=== PATIENT | male | born 1950 | race Caucasian/White ===

== ENCOUNTER 2024-02-16 14:58 | Outpatient (CLI) | payer MEDICARE, SELFPAY ==
[2024-02-16 15:18] LABS: Basophils # 0.1 K/mm3 (0-0.2); Basophils % 1.2 % (0.1-2.0); Eosinophils # 0.3 K/mm3 (0.0-0.4); Eosinophils % 6.6 % (0.1-12.0); Hematocrit 37.1 % (42.0-52.0); Hemoglobin 11.1 g/dL (14.1-18.0); Lymphocytes # 1.1 K/mm3 (0.7-4.5); Lymphocytes % 22.2 % (10-50); Mean Corpuscular HGB Conc 29.8 g/dL (31.8-35.4); Mean Corpuscular Hemoglobin 21.8 pg (27.0-31.2); Mean Corpuscular Volume 73.3 fl (80-94); Monocytes # 0.4 K/mm3 (0.1-1.0); Neutrophils # 3.2 K/mm3 (1.8-7.8); Platelet Count 131 K/mm3 (142-424); Red Blood Count 5.07 M/mm3 (4.60-6.20); Red Cell Distribution Width 18.3 % (11.5-17.5); White Blood Count 5.1 K/mm3 (4.8-10.8)
[2024-02-16 15:53] LABS: Chloride 101 mmol/L (98-107)
[2024-02-16 15:54] LABS: Potassium 3.9 mmoL/L (3.5-5.1); Sodium 140 mmol/L (136-145)
[2024-02-16 15:56] LABS: Alanine Aminotransferase 13 U/L (12-78); Alkaline Phosphatase 64 U/L (38-126); Anion Gap 7.9 mEq/L (5-15); Aspartate Amino Transferase 23 U/L (17-59); Bilirubin,Direct 0.4 mg/dl (0.0-0.4); Bilirubin,Indirect 1.1 mg/dL (0.0-0.9); Bilirubin,Total 1.5 mg/dl (0.2-1.3); Bilirubin,Unconjugated 1.1 mg/dL (0.0-1.1); Blood Urea Nitrogen 23 mg/dl (9-20); Carbon Dioxide 35 mmol/L (22.0-30.0); Estimated Glomerular Filt Rate 12 ml/min (>60); GFR (African American) 15 ML/MIN (>60)
[2024-02-16 15:57] LABS: Albumin Level 3.8 g/dl (3.5-5.0); Calcium 8.9 mg/dl (8.4-10.2); Chol/HDL Ratio 2.7 (1-3.5); Cholesterol 91 mg/dl (140-200); Glucose 95 mg/dl (74-100); HDL Cholesterol 34 mg/dl (40-60); Total Protein,Serum 6.8 g/dl (6.3-8.2); Triglycerides 68 mg/dl (30-150); VLDL Cholesterol 14 mg/dL (0-40)
[2024-02-16 16:24] LABS: Direct LDL Cholesterol 44.12 mg/dL (100-129)
[2024-02-16 16:27] LABS: Free T4 (Free Thyroxine) 1.81 ng/dl (0.78-2.19)
[2024-02-16 16:39] LABS: Thyroid Stimulating Hormone 4.27 uIU/mL (0.465-4.68)
[2024-02-16 17:04] LABS: NT Pro Brain Natriuretic Pep. 163000 pg/mL (0-125)
== END 2024-02-16 23:59 ==
PROVIDERS: PCP Pediatrics; Visit Provider Internal Medicine
DX: K21.9 Gastro-esophageal reflux disease without esophagitis (principal); R06.09 Other forms of dyspnea; R94.31 Abnormal electrocardiogram [ECG] [EKG]; N18.6 End stage renal disease; Z95.0 Presence of cardiac pacemaker; I11.9 Hypertensive heart disease without heart failure; I42.8 Other cardiomyopathies
CPT/HCPCS: 36415; 80048; 80061; 80076; 83880; 84439; 84443; 85025

== ENCOUNTER 2024-02-25 10:41 | Outpatient (CLI) | payer MEDICARE, SELFPAY ==
--- NOTE | 2024-02-25 10:46 | CA_ITS ---
APPROVED REPORT EXAM: Comprehensive 2D, Doppler, and color-flow Echocardiogram Park Worker: Sis Bojorquez RT(R) Ht: 5 ft 6 in Wt: 172lbs BSA: 1.88 BP: 120/58 mmHg Indications: CP, HTN, fatigue, SOB, hyperlipidemia, PPM, Abn EKG, hx CM. 2D Dimensions LVEF (Cantu's) 23.00 % M: 52 - 72 LV Volume 276.40 mL M: 62 - 150 LV Volume Index 147.0 mL/m2 M: 34 - 74 LA Volume 117.10 mL LA Volume Index 62.29 mL/m2 (M/F) 16-34 EF AP4 24.90 % EF AP2 17.0 % EF BP 23.0 % GL Strain -7.6 % M-Mode Dimensions RVDd 3.40 cm (0.9-2.6) LA Diam 4.86 cm (1.9-4.0) LVDd 6.71 cm (3.5-5.7) LVDs 5.61 cm (3.5-5.7) IVSd 1.27 cm (0.6-1.1) PWd 0.93 cm (0.6-1.1) EF (Teich) 33.50% FS 16.40% EDV (Teich) 232.10 mL ESV (Teich) 154.30 mL LV Diastology E Decel Time 167 (160-240 msec) E/A Ratio 2.7 Mitral Valve MV E Max Jovanni. 96.0 (40-130 cm/s) MV A Velocity 35.0 (40-130 cm/s) E/A Ratio 2.75 MV PHT 49.0 ms Tricuspid Valve TR P. Velocity 336.00 cm/s RAP Estimate 15.00 mmHg RVSP 60.10 mmHg Left Ventricle Left ventricle is severely dilated. Left ventricular systolic function is severely decreased. There is increased LV wall thickness. There is severe global hypokinesis present. The septum is asynchronous. The septal, inferoseptal, and anteroseptal LV randolph are akinetic. Grade 3 diastolic dysfunction is present. LVEF is 15-20%. Right Ventricle Right ventricle is severely dilated. Right ventricle is moderately hypokinetic. There is a device lead in the right ventricle. Atria Left atrium is severely dilated. Right atrium is severely dilated. There is no Doppler evidence of interatrial shunt. Aortic Valve The aortic valve is mildly thickened. There is restricted motion of the right coronary cusp. There is no aortic valvular stenosis. Trace aortic regurgitation. Mitral Valve The mitral valve leaflets are mildly thickened. No evidence of mitral valve stenosis. Mild to moderate mitral regurgitation. Tricuspid Valve The tricuspid valve leaflets are thin and pliable. Moderate to severe tricuspid regurgitation. RVSP is 45-50 mmHg. Pulmonic Valve The pulmonary valve is normal in structure. Mild pulmonic regurgitation. Great Vessels The aortic root is normal in size. The ascending aorta is normal in size. There is calcification noted in the ascending aorta. IVC is normal in size and collapses >50% with inspiration. Pericardium There is no pericardial effusion. Other Information Study Quality: Fair Conclusion Severely dilated LV with severely reduced LV systolic function (LVEF 15-20%). Asynchronous septum. The septal, inferoseptal, and anteroseptal LV randolph are akinetic. Grade 3 diastolic dysfunction. Moderate RV dilation with moderate reduction in RV function. Severe biatrial dilation. Mild to moderate MR. Moderate to severe TR. Mild pulmonic regurgitation. RVSP is 45-50 mmHg. Electronically signed by : Oneida Kaur MD 02/27/2024 23:55:22
== END 2024-02-25 23:59 ==
LOC: RT 10:42
PROVIDERS: PCP Pediatrics; Visit Provider Internal Medicine
DX: R06.09 Other forms of dyspnea; R94.31 Abnormal electrocardiogram [ECG] [EKG]; N18.6 End stage renal disease; Z95.0 Presence of cardiac pacemaker; I42.8 Other cardiomyopathies
CPT/HCPCS: 93306

== ENCOUNTER 2024-04-25 09:47 | Day surgery (SDC) | payer MEDICARE, SELFPAY ==
--- NOTE | 2024-04-25 | IR_ITS ---
APPROVED REPORT Patient Location: Outpatient [facility] Cutter: KVNG Wei RT (R) PROCEDURES 1. Pocket Revision 2. Placement of right ventricular sensing pacing and shocking lead in the right ventricular apex. 3. Placement of left ventricular sensing pacing lead via the coronary sinus. 4. Capping of chronic right ventricular lead. 5. Permanent cardiac resynchronization therapy with ICD implantation/biventricular pacemaker. INDICATION 94 % Right Atrial pacing, LVEF 15%, 25% Right Ventricular pacing Informed consent was obtained prior to the procedure. COMPLICATIONS None Estimated Blood Loss: Less than 10 ML TECHNIQUE 1% lidocaine with epinephrine used to anesthetize the left anterior aspect of the chest. Scalpel was used to make the initial cutaneous incision and to dissect down into the fascia. The generator was removed from the existing pocket. Digital manipulation was required along with intermittent usage of scalpel in order to revise the pocket. The leads were removed from the old generator. The patient was then placed in Trendelenburg position and the subclavian vein was accessed 1 time via the Selinger technique. A 9.5 [place] sheath was placed under fluoroscopic guidance into the subclavian vein. The dilator was removed from the sheath. Under fluoroscopic guidance the coronary sinus was cannulated and confirmed with an injection of contrast. An 0.014 wire was then placed distally in the inferior posterior segment of the left ventricle via the coronary sinus and the left ventricular lead was advanced. After achieving excellent thresholds and interrogation numbers the sheath was then peeled away and the lead was then secured into place using silk suture. Ancef was used to flush the pocket and the 3 leads were attached to the [employer]-D generator. The generator was then secured into place by heavy silk suture. Monocryl was used to close the subcutaneous layers while surjit were used to close the subcutaneous layers while surjit were used to close the cutaneous layer. A pressure dressing was placed and the patient was transferred to the postop holding area in stable condition for postoperative care. INTERROGATION Generator Model number: 2can HF [id number] Generator Serial number: [id number] Atrial lead model number: Chronic Lead Atrial lead serial number: Chronic Lead P-wave: 2.5 mV Impedance: 360 Ohms Threshold: 0.875V@0.5ms Right Ventricular lead model number: Optisure [id number] Right Ventricular lead serial number: [id number] R-wave: 7.5 mV Impedance: 450 Ohms Threshold: 0.5V@0.5ms Left Ventricular lead model number: Primitivo [id number] Left Ventricular lead serial number: [id number] R-wave: Impedance: 860 Ohms Threshold: 0.5V@0.5ms VT-1 150 bpm monitor VT-2 181 bpm ATPX2, 30J, 40J, 40JX2 VF 214 bpm ATPX1, 36J, 40J, 40JX4 Pacing Parameters: Mode: DDDR Base/Max Track:60 ppm / 130 ppm No diaphragmatic stimulation at 10 volts. IMPRESSION 1. Successful Pocket Revision 2. Successful Placement of right ventricular sensing pacing and shocking lead in the right ventricular apex. 3. Successful Placement of left ventricular sensing pacing lead via the coronary sinus. 4. Successful Capping of chronic right ventricular lead. 5. Successful Permanent cardiac resynchronization therapy with ICD implantation/biventricular pacemaker. PLAN 1. Postop wound care. Electronically signed by : Mane Tesfaye MD 04/26/2024 13:13:01
[2024-04-25 09:50] VITALS: BMI 27.6
[2024-04-25 10:30] LABS: Anion Gap 13.1 mEq/L (5-15); Blood Urea Nitrogen 35 mg/dl (9-20); Calcium 9.2 mg/dl (8.4-10.2); Carbon Dioxide 34 mmol/L (22.0-30.0); Chloride 100 mmol/L (98-107); Creatinine Clearance Estimated 11 mL/min (50-200); Estimated Glomerular Filt Rate 8 ml/min (>60); GFR (African American) 10 ML/MIN (>60); Glucose 97 mg/dl (74-100); Potassium 4.1 mmoL/L (3.5-5.1); Sodium 143 mmol/L (136-145)
[2024-04-25 10:35] VITALS: BP 128/72; PULSE 75; RESP 19; O2SAT 96
[2024-04-25 11:15] LABS: Basophils % 0.7 % (0.1-2.0); Eosinophils # 0.2 K/mm3 (0.0-0.4); Eosinophils % 4.1 % (0.1-12.0); Hematocrit 33.1 % (42.0-52.0); Lymphocytes # 0.7 K/mm3 (0.7-4.5); Lymphocytes % 16.1 % (10-50); Mean Corpuscular HGB Conc 30.2 g/dL (31.8-35.4); Mean Corpuscular Hemoglobin 21.9 pg (27.0-31.2); Mean Corpuscular Volume 72.4 fl (80-94); Mean Platelet Volume 7.7 fl (7.4-10.4); Monocytes # 0.3 K/mm3 (0.1-1.0); Monocytes % 6.5 % (1.7-9.3); Neutrophils # 3.1 K/mm3 (1.8-7.8); Neutrophils % 72.6 % (37.0-80.0); Platelet Count 154 K/mm3 (142-424); Red Blood Count 4.57 M/mm3 (4.60-6.20); White Blood Count 4.3 K/mm3 (4.8-10.8)
--- NOTE | 2024-04-25 14:20 | P.PNANES_ITS ---
[facility] Disclaimer: The information contained in this section may have been updated after the patient was seen, as this information can be updated by other users. Medical History Presence of cardiac pacemaker Dialysis Patient Surgical History H/O left heart catheterization by cutdown H/O heart surgery Social History Smoking Status: Never smoker alcohol intake: never substance use type: denies use current occupational status: retired Travel in the last 8 weeks: None [facility] Anesthesia Checklist Patient Identification Patient Identification: Arm Band Structural Data Admitted From: Home Planned Operative Procedure/s: Bi-ventricular Pacemaker Upgrade Consent for Planned Operative Procedure(s) Verified: Yes Verified Documents: Surgical Consent and History and Physical NPO Status Verified Time NPO: 00:00 Additional verifications Anesthesia Reactions: No Hx Blood Transfusions: No Blood Transfusion Reaction: No Airway Assessment Mallampati Score:: Class II C-Spine Mobility Assessed: Yes Dentition: Good Dentition Neurological Assessment Level of Consciousness: Awake, Alert and Appropriate Anesthesia Plan Anesthesia Risk discussed: Yes Anesthesia Plan: Verified ASA Class: IV Anesthesia Type: MAC
[2024-04-25] MEDS: CEFAZOLIN SODIUM 1 GM in 0.9 % SODIUM CHLORIDE 50 ML IV (14:35)
[2024-04-25] MEDS: LIDOCAINE 1% W/EPI 1:100,000 20ML VIAL 20 ML SQ (14:36)
[2024-04-25] MEDS: 0.9 % SODIUM CHLORIDE 1000ML 1,000 ML 25 ML IV (15:42)
[2024-04-25] MEDS: CEFAZOLIN 1GM VIAL 1 GM TP (15:51)
--- NOTE | 2024-04-25 15:54 | XR_ITS ---
FINAL REPORT TECHNIQUE: Single view. CLINICAL HISTORY: Confirm pacemaker/AID placement COMPARISON: None. FINDINGS: The heart size is mildly enlarged. There is a biventricular pacemaker identified. The mediastinum is normal. There is scarring in the lung bases. Patchy airspace opacities are identified in the medial right upper lobe and inferior left lower lobe. This could be due to pneumonia. There are no pleural effusions. There is no pneumothorax. There is no osseous abnormality. IMPRESSION: Airspace opacity in the medial right upper lobe and inferior left lower lobe, could be due to pneumonia. Reviewed, Interpreted and Dictated by Kristopher Lee MD Transcribed by Chioma Huitron PA-C Authenticated and [facility]
[2024-04-25 16:05] VITALS: BP 115/54; PULSE 60; RESP 16; O2SAT 90
[2024-04-25 16:28] VITALS: BP 116/54; PULSE 58; RESP 20; O2SAT 98
[2024-04-25] MEDS: IOPAMIDOL-370 (76%);100ML BOTTLE 15 ML IV (16:38)
[2024-04-25 16:43] VITALS: BP 135/62; PULSE 60; RESP 20; O2SAT 93
[2024-04-25 16:55] VITALS: BP 127/78; PULSE 66; RESP 20; O2SAT 96
[2024-04-25 16:56] VITALS: O2SAT 95
--- NOTE | 2024-04-25 17:15 | SUR.PHASEII ---
Family was notified of Chest X-ray results, and advised to follow up with PCP about possible pneumonia. Patient and family verbalized understanding. patient in no distress at time of discharge.
== END 2024-04-25 17:17 | disposition home or self-care (01) ==
PROVIDERS: PCP Pediatrics; Visit Provider Internal Medicine
PROC: 0JH609Z Insertion of Cardiac Resynchronization Defibrillator Pulse Generator into Chest Subcutaneous Tissue and Fascia, Open Approach (ICD-10-PCS; CPT 33249; principal; 2024-04-25 07:00)
DX: Z45.02 Encounter for adjustment and management of automatic implantable cardiac defibrillator (principal); Z79.899 Other long term (current) drug therapy; N18.6 End stage renal disease; I42.9 Cardiomyopathy, unspecified; I50.9 Heart failure, unspecified
CPT/HCPCS: 33225; 33233; 33249; 71045; 80048; 85025; 99152; 99153; C1769; C1882; C1895; C1900; Q9967

== ENCOUNTER 2025-01-23 15:07 | Outpatient (CLI) | payer MEDICARE, SELFPAY ==
--- NOTE | 2025-01-23 15:10 | CA_ITS ---
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 5.90 mmHg Mitral Valve MV E Max Jovanni. 87.0 (40-130 cm/s) MV A Velocity 35.0 (40-130 cm/s) E/A Ratio 2.45 MV PHT 55.0 ms Pulmonary Valve PV Peak Velocity 91.0 (50-150 cm/s) Tricuspid Valve TR P. Velocity 352.00 cm/s RAP Estimate 10.00 mmHg RVSP 59.60 mmHg Left Ventricle The left ventricle is moderately dilated. Left ventricular systolic function is severely decreased. Increased LV wall thickness. There is severe global hypokinesis present. Grade 3 diastolic dysfunction is present. LVEF is 15%. Right Ventricle The right ventricle is severely dilated. Right ventricle is severely hypokinetic. Atria Left atrium is severely dilated. Right atrium is severely dilated. There is no Doppler evidence of interatrial shunt. Aortic Valve The aortic valve is mildly thickened. There is no aortic valvular stenosis. Trace aortic regurgitation. Mitral Valve The mitral valve leaflets are mildly thickened. The posterior MV leaflet is tethered and restricted in motion. No evidence of mitral valve stenosis. Mild mitral regurgitation. Tricuspid Valve The tricuspid valve leaflets are thin and pliable. Mild tricuspid regurgitation. RVSP is 50???55 mmHg. Pulmonic Valve The pulmonary valve is normal in structure. Trace pulmonic regurgitation. Great Vessels The aortic root is normal in size. IVC is normal in size and collapses >50% with inspiration. Pericardium There is no pericardial effusion. Pleural effusion is present. Other Information Study Quality: Fair Conclusion Moderate RV dilation with severe reduction global LV systolic function (LVEF 15%). Grade 3 diastolic dysfunction. Severe RV dilation with severe reduction in RV function. Biatrial dilation. Mild MR, mild TR. Markedly elevated RVSP 50-55 mmHg. Pleural effusion. Electronically signed by : Oneida Kaur MD 01/29/2025 00:08:10
== END 2025-01-23 23:59 | disposition home or self-care (01) ==
LOC: RT 15:08
PROVIDERS: PCP Pediatrics; Visit Provider Nurse Practitioner Family
DX: I51.7 Cardiomegaly (principal); I34.0 Nonrheumatic mitral (valve) insufficiency; I36.1 Nonrheumatic tricuspid (valve) insufficiency; I50.20 Unspecified systolic (congestive) heart failure
CPT/HCPCS: 93306

== ENCOUNTER 2025-02-22 11:22 | Outpatient (CLI) | payer MEDICARE, SELFPAY ==
[2025-02-22 12:15] LABS: Iron 191 ug/dL (49-181)
[2025-02-22 12:25] LABS: Total Iron Binding Capacity 329 ug/dL (261-462)
[2025-02-22 12:52] LABS: Ferritin 838 ng/ml (17.9-464)
== END 2025-02-22 23:59 | disposition home or self-care (01) ==
LOC: LAB 13:00
PROVIDERS: PCP Pediatrics; Visit Provider Specialist
DX: D64.9 Anemia, unspecified (principal); D56.1 Beta thalassemia
CPT/HCPCS: 36415; 82728; 83540; 83550

== ENCOUNTER 2025-06-19 08:17 | Outpatient (CLI) | payer MEDICARE, SELFPAY ==
--- OUTSIDE RECORDS SUMMARY | 2025-05-25 10:00 | XMS_ITS | Encounter Summary ---
Author Organization [facility] Address [address] [place] [address] Care Team Providers Care Anaesthesiologist Name Role Phone Avel Traore MD Primary Care Provider [phone] Reason for Visit * Reason Comments Primary Care Follow-Up 6 month f/u Encounter Details Date Type Department Care Team (Late st Contact Info) Description 05/25/2025 10:00 AM EDT Office Visit [facility] [address] [place] [address] [place] [phone] Avel Traore MD [address] [place] [address] [place] [address] Renovascular hypertension (Primary Dx); ESRD (end stage renal disease) on dialysis; Anxiety and depression; Chronic systolic heart failure; Longstanding persistent atrial fibrillation; Hypothyroidism (acquired); Elevated bilirubin; Benign prostatic hyperplasia without lower urinary tract symptoms; Vitamin B12 deficiency; Vitamin D deficiency Social History Tobacco Use Types Packs/Day Years Used Date Smoking Tobacco: Never Passive Smoke Exposure: Never Smokeless Tobacco: Never Alcohol Use Standard Drinks/Week Comments No 0 (1 standard drink = 0.6 oz pur e alcohol) AUDIT-C Answer Date Recorded Q1: How often do you have a drink containing alcohol? Never 02/11/2024 Q2: How many drinks containi ng alcohol do you have on a typical day when you are drinking? Patient does not drink Q3: How often do you have si x or more drinks on one occasion? Never 02/11/2024 PHQ-2 Answer Date Recorded Retired PHQ-9: Brief Depression Severity Measure Score 0 06/02/2023 Abuse Screen Answer Date Recorded Feels Unsafe at Home or Work/School no 02/11/2024 Feels Threatened by Someone no 01/27 Does Anyone Try to Keep You From Having Contact with Others or Doing Things Outside Your Home? no 02/11/2024 Physical Signs of Abuse Present no 02/11/2024 Housing Stability Answer Date Recorded Current Living Arrangements home 01/27 Potentially Unsafe Housing Conditions Not on didi e 02/11/2024 Disabilities Answer Date Recorded Difficulty Concentrating, Remembering or Making Decisions no 02/11/2024 Difficulty Managing Errands Independently no 02/11/2024 PHQ-2 Answer Date Recorded Patient Health Questionnaire-2 Score 0 12/01/2024 Sex and Gender Information Value Date Recorded Sex Assigned at Not on file Legal Sex Male 11:59 AM EDT Gender Identity Not on file Sexual Orientation Not on file documented as of this encounter Last Filed Vital Signs Vital Sign Reading Time Taken Comments Blood Pressure 122/68 05/25/2025 9:53 AM EDT Pulse 70 05/25/2025 9:53 AM EDT Temperature 36.7 C (98 F) 05/25/2025 9:53 AM EDT Respiratory Rate 18 05/25/2025 9:53 AM EDT Oxygen Saturation 100% 05/25/2025 9:53 AM EDT Inhaled Oxygen Concentration - - Weight 71.2 kg (157 lb) 05/25/2025 9:53 AM EDT Height 167.6 cm (5' 6 ) 05/25/2025 9:53 AM EDT Body Mass Index 25.34 05/25/2025 9:53 AM EDT documented in this encounter Progress Notes * Avel Traore MD - 05/25/2025 10:40 AM EDTAssociated Problem(s): Vitamin D deficiency Modest pattern of vitamin D deficiency in the past, with recent blood work from 11/17/2023 with vitamin D 25-hydroxy level normal at 48.5. Previous 05/05/2022 by nephrology revealing vitamin D at 80.6.Recheck pending blood work 05/2025 at 78.9. Monitor yearly. * Avel Traore MD - 05/25/2025 10:40 AM EDTAssociated Problem(s): Vitamin B12 deficiency 2022 vitamin B12 level normal at 934, previous 11/24/2022 Vitamin B12 level normal at 706 with range 232-1245, 982 on 10/17/2021. Recheck of vitamin B12 normal at 347 on 12/05/2024. Monitor yearly. * Avel Traore MD - 05/25/2025 10:39 AM EDTAssociated Problem(s): Longstanding persistent atrial fibrillation Managed by Dr. Tesfaye in [facility] since early 2023, after previous care through Dr. Asher.notable for placement of pacemaker, 06/18/2019. He is additionally on regimen of metoprolol for benefit of atrial fibrillation, aspirin 81 mg daily. Manage by cardiology. Keep regular followup. * Avel Traore MD - 05/25/2025 10:39 AM EDTAssociated Problem(s): Hypothyroidism (acquired) Current regimen levothyroxine 88 ??g daily. 12/21/2024 blood work with TSH normalized to 3.970, compared to mild elevation of 4.860 on 12/05/2024, and Free T4 continues in normal range at 1.43 compared to 1.54 on 12/05/2024.comparison previously 11/25/2023 with TSH normal 3.130, Free T4 normal at 1.39, 05/05/2022 with TSH 3.50, free T4 1.2, comparison 10/14/2021 TSH normal at 4.60, free T4 normal 1.16. 12/05/2024 TSH mildly increased at 4.86 with normal free T41.54, But normalized on 12/21/2024 at 3.97 and 1.43 respectively. Continue unchanged. Patient feels clinically euthyroid. * Avel Traore MD - 05/25/2025 10:39 AM EDTAssociated Problem(s): Hypertension Continued good blood pressure control, monitored additionally by nephrology in [facility]. Someperiodic modest lability of his blood pressure related to dialysis which is to be expected but generally he feels it has been in good range typically in the 110s to 120s over 70s. Continue regimen ofamlodipine 5 mg daily, metoprolol XL increased 50 mg as of spring 2024 from previous 25 mg. blood pressure continues good range at home. Advise concerns. * Avel Traore MD - 05/25/2025 10:38 AM EDTAssociated Problem(s): ESRD (end stage renal disease) on dialysis Dialysis dependent. Dialysis onset fall 2021 with notable placement of right upper arm cephalic vein device for dialysis on 2022. Ongoing Wednesday, Wednesday, Wednesday dialysis as managed by Dr. Enamorado, piercer operator locally at [facility]. Ongoing management. He has stability as managed through dialysis and nephrology. Keep regular follow-up. No new concerns as of 05/25/2025. * Avel Traore MD - 05/25/2025 10:38 AM EDTAssociated Problem(s): Elevated bilirubin 12/21/2024 profile reveals total bilirubin increased to 2.1, compared to 1.9 on 12/05/2024, and 1.5 10months prior. The breakdown with bilirubin direct at 0.92 with a range of 0-0.4, and indirect bilirubin of 1.18 with range of 0.1-0.8. 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 Mills who ultimately did not have further concerns after his evaluation, recommended to follow-up only on an as-needed basis. * Avel Traore MD - 05/25/2025 10:37 AM EDTAssociated Problem(s): Chronic systolic heart failure Previously following with Dr. Asher of [facility] cardiology, but with some ongoing exertional fatigue, was seen by Dr. Tesfaye, venue coordinator at [facility] for second opinion as of spring 2023, ultimately performed recent replacement of pacemaker on 04/25/2024 including placed RV sensing and LV sensing pacer, with additional defibrillator. Continues to feel better since that time, breathing easier and sense of pressure has resolved. Last follow-up with Dr. Tesfaye spring 2024 with adjustment up of metoprolol XL from 25 to 50 mg daily, otherwise doing well. Symptoms concern. Keep regular follow-up. Advise concerns. * Avel Traore MD - 05/25/2025 10:36 AM EDTAssociated Problem(s): BPH (benign prostatic hyperplasia) Previous use of Flomax per review of previous physician records, but he is not taking currently, ashis symptoms were improved once he started dialysis. We could resume Flomax in future, but he is not having any specific urinary complaints. PSA normal at 1.21 on 10/14/2021, 1.0 on 11/25/2023, and 0.7 on 12/05/2024. * Avel Traore MD - 05/25/2025 10:36 AM EDTAssociated Problem(s): Anxiety and depression Long-standing use of fluoxetine 10 mg capsule daily with benefit, with previous attempt to wean medication causing breakthrough symptoms. Overall stability and symptoms, no SI/HI. We discussed pros and cons of considering weaning off the medicine but with previous attempt to wean he had breakthrough and would like to continue unchanged. That is reasonable with refills provided. I continue to reinforce benefits of lifestyle modifications to benefit mood including pursuit of enjoyable activities,regular exercise, good communication, et cetera. Stability as of 05/25/2025. * Avel Traore MD - 05/25/2025 10:00 AM EDT Images from the original note were not included. Office Note Name: Jeremy Slaughter : 1950 Chief Complaint Primary Care Follow-Up (6 month f/u) Subjective History of Present Illness: Jeremy Slaughter is a 75 y.o. male who presents today for follow-up regarding multimedical problems. Blood pressure continues good range, at visit earlier this year Dr. Tesfaye, his venue coordinator adjusted up modestly metoprolol from 25 mg up to 50 mg he is doing well, tolerating well with good pulse range. Follow- up on bilirubin previously Dr. Mills felt to be nonconcerning pattern overall, and no further investigations or follow-up was deemed necessary, likely related in part to his beta thalassemia minor. No flare of gout in the interim. Thyroid is in good range on recheck earlier thisyear, no hypothyroidism type symptoms. Anxiety present symptoms continue stability on fluoxetine 10mg daily. Cholesterol was excellent last blood work and continue to make efforts eat healthy be active. With his heart he again is having no chest pain palpitations or shortness of breath. Some modest flare of allergies but he is doing well with his medicine at this time. No other new concerns. Review of Systems Objective Past Medical History: Diagnosis Date Cellulitis 07/2022 Right Arm Chronic kidney disease On Dialysis Wed, Wed, Wed-Shunt in Right Arm Hypertension Mixed hyperlipidemia 11/24/2022 Neuropathy of upper extremity, right 02/24/2023 Sleep apnea baseline AHI 13 Thalassemia Vitamin B12 deficiency Past Surgical History: Procedure Laterality Date CARDIAC CATHETERIZATION Left 02/11/2024 Procedure: Cardiac Catheterization/Vascular Study; Surgeon: Nathan Patterson MD; Location: [facility]; Service: Cardiovascular; Laterality: Left; COLONOSCOPY ENTEROSCOPY VIA STOMA EXCISION TUMOR NECK / THORAX EYE SURGERY INSERT / REPLACE / REMOVE PACEMAKER SHOULDER SURGERY SINUS SURGERY VASCULAR SURGERY 2020 Family History Problem Relation Age of Onset Kidney disease Mother No Known Problems Sister No Known Problems Brother Vital Signs BP 122/68 (BP Location: Left arm, Patient Position: Sitting, Cuff Size: Adult) Pulse 70 Temp 98??F (36.7 ??C) (Temporal) Resp 18 Ht 167.6 cm (66 ) Wt 71.2 kg (157 lb) SpO2 100% BMI 25.34 kg/m?? Estimated body mass index is 25.34 kg/m?? as calculated from the following: Height as of this encounter: 167.6 cm (66 ). Weight as of this encounter: 71.2 kg (157 lb). Physical Exam Constitutional: General: He is not in acute distress. Appearance: Normal appearance. He is not ill-appearing, toxic-appearing or diaphoretic. HENT: Right Ear: Ear canal and external ear normal. Left Ear: Ear canal and external ear normal. Ears: Comments: Mild fluid behind the TMs bilaterally, otherwise clear Nose: Rhinorrhea present. Comments: Mild clear rhinorrhea, pale mucosa Mouth/Throat: Mouth: Mucous membranes are moist. Pharynx: Oropharynx is clear. No oropharyngeal exudate or posterior oropharyngeal erythema. Neck: Vascular: No carotid bruit. Cardiovascular: Rate and Rhythm: Normal rate and regular rhythm. Pulses: Normal pulses. Heart sounds: Normal heart sounds. No murmur heard. No friction rub. No gallop. Pulmonary: Effort: Pulmonary effort is normal. No respiratory distress. Breath sounds: Normal breath sounds. No stridor. No wheezing. Abdominal: General: Abdomen is flat. Bowel sounds are normal. There is no distension. Palpations: Abdomen is soft. Tenderness: There is no abdominal tenderness. There is no guarding or rebound. Musculoskeletal: Cervical back: Neck supple. No tenderness. Right lower leg: No edema. Left lower leg: No edema. Lymphadenopathy: Cervical: No cervical adenopathy. Skin: General: Skin is warm and dry. Capillary Refill: Capillary refill takes less than 2 seconds. Neurological: General: No focal deficit present. Mental Status: He is alert and oriented to person, place, and time. Mental status is at baseline. Psychiatric: Mood and Affect: Mood normal. Behavior: Behavior normal. Thought Content: Thought content normal. POCT Results (if applicable): Results for orders placed or performed in visit on 12/21/24 Bilirubin, Total & Direct Collection Time: 12/21/24 12:19 PM Specimen: Blood Blood Release to korina Result Value Ref Range Total Bilirubin 2.1 (H) 0.0 - 1.2 mg/dL Bilirubin, Direct 0.92 (H) 0.00 - 0.40 mg/dL Bilirubin, Indirect 1.18 (H) 0.10 - 0.80 mg/dL T4, Free Collection Time: 12/21/24 12:19 PM Specimen: Blood Blood Release to korina Result Value Ref Range Free T4 1.43 0.82 - 1.77 ng/dL TSH Collection Time: 12/21/24 12:19 PM Specimen: Blood Blood Release to korina Result Value Ref Range TSH 3.970 0.450 - 4.500 uIU/mL Assessment and Plan Diagnoses and all orders for this visit: 1. Renovascular hypertension (Primary) Assessment & Plan: Continued good blood pressure control, monitored additionally by nephrology in [facility]. Someperiodic modest lability of his blood pressure related to dialysis which is to be expected but generally he feels it has been in good range typically in the 110s to 120s over 70s. Continue regimen ofamlodipine 5 mg daily, metoprolol XL increased 50 mg as of spring 2024 from previous 25 mg. blood pressure continues good range at home. Advise concerns. 2. ESRD (end stage renal disease) on dialysis Assessment & Plan: Dialysis dependent. Dialysis onset fall 2021 with notable placement of right upper arm cephalic vein device for dialysis on 2022. Ongoing Wednesday, Wednesday, Wednesday dialysis as managed by Dr. Enamorado, piercer operator locally at [facility]. Ongoing management. He has stability as managed through dialysis and nephrology. Keep regular follow-up. No new concerns as of 05/25/2025. 3. Anxiety and depression Assessment & Plan: Long-standing use of fluoxetine 10 mg capsule daily with benefit, with previous attempt to wean medication causing breakthrough symptoms. Overall stability and symptoms, no SI/HI. We discussed pros and cons of considering weaning off the medicine but with previous attempt to wean he had breakthrough and would like to continue unchanged. That is reasonable with refills provided. I continue to reinforce benefits of lifestyle modifications to benefit mood including pursuit of enjoyable activities,regular exercise, good communication, et cetera. Stability as of 05/25/2025. 4. Chronic systolic heart failure Assessment & Plan: Previously following with Dr. Asher of [facility] cardiology, but with some ongoing exertional fatigue, was seen by Dr. Tesfaye, venue coordinator at [facility] for second opinion as of spring 2023, ultimately performed recent replacement of pacemaker on 04/25/2024 including placed RV sensing and LV sensing pacer, with additional defibrillator. Continues to feel better since that time, breathing easier and sense of pressure has resolved. Last follow-up with Dr. Tesfaye spring 2024 with adjustment up of metoprolol XL from 25 to 50 mg daily, otherwise doing well. Symptoms concern. Keep regular follow-up. Advise concerns. 5. Longstanding persistent atrial fibrillation Assessment & Plan: Managed by Dr. Tesfaye in [facility] since early 2023, after previous care through Dr. Asher.notable for placement of pacemaker, 06/18/2019. He is additionally on regimen of metoprolol for benefit of atrial fibrillation, aspirin 81 mg daily. Manage by cardiology. Keep regular followup. 6. Hypothyroidism (acquired) Assessment & Plan: Current regimen levothyroxine 88 ??g daily. 12/21/2024 blood work with TSH normalized to 3.970, compared to mild elevation of 4.860 on 12/05/2024, and Free T4 continues in normal range at 1.43 compared to 1.54 on 12/05/2024.comparison previously 11/25/2023 with TSH normal 3.130, Free T4 normal at 1.39, 05/05/2022 with TSH 3.50, free T4 1.2, comparison 10/14/2021 TSH normal at 4.60, free T4 normal 1.16. 12/05/2024 TSH mildly increased at 4.86 with normal free T41.54, But normalized on 12/21/2024 at 3.97 and 1.43 respectively. Continue unchanged. Patient feels clinically euthyroid. 7. Elevated bilirubin Assessment & Plan: 12/21/2024 profile reveals total bilirubin increased to 2.1, compared to 1.9 on 12/05/2024, and 1.5 10months prior. The breakdown with bilirubin direct at 0.92 with a range of 0-0.4, and indirect bilirubin of 1.18 with range of 0.1-0.8. 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 Mills who ultimately did not have further concerns after his evaluation, recommended to follow-up only on an as-needed basis. 8. Benign prostatic hyperplasia without lower urinary tract symptoms Assessment & Plan: Previous use of Flomax per review of previous physician records, but he is not taking currently, ashis symptoms were improved once he started dialysis. We could resume Flomax in future, but he is not having any specific urinary complaints. PSA normal at 1.21 on 10/14/2021, 1.0 on 11/25/2023, and 0.7 on 12/05/2024. 9. Vitamin B12 deficiency Assessment & Plan: 2022 vitamin B12 level normal at 934, previous 11/24/2022 Vitamin B12 level normal at 706 with range 232-1245, 982 on 10/17/2021. Recheck of vitamin B12 normal at 347 on 12/05/2024. Monitor yearly. 10. Vitamin D deficiency Assessment & Plan: Modest pattern of vitamin D deficiency in the past, with recent blood work from 11/17/2023 with vitamin D 25-hydroxy level normal at 48.5. Previous 05/05/2022 by nephrology revealing vitamin D at 80.6.Recheck pending blood work 05/2025 at 78.9. Monitor yearly. Vaccine Counseling: Follow Up Return in about 6 months (around 11/24/2025) for Medicare Wellness. Avel Traore MD documented in this encounter Plan of Treatment Not on file documented as of this encounter Visit Diagnoses Diagnosis Renovascular hypertension- Primary Secondary renovascular hypertension, unspecified ESRD (end stage renal disease) on dialysis End stage renal disease Anxiety and depression Chronic systolic heart failure Longstanding persistent atrial fibrillation Hypothyroidism (acquired) Unspecified hypothyroidism Elevated bilirubin Benign prostatic hyperplasia without lower urinary tract symptoms Vitamin B12 deficiency Other B-complex deficiencies Vitamin D deficiency documented in this encounter Care Teams Anaesthesiologist Relationship Specialty Start Date End Date Avel Traore MD [address] [place] [id number] PCP - General Internal Medicine 11/17/22 documented as of this encounter
[2025-06-19] VITALS (10 sets, daily range): BP systolic 125–151; BP diastolic 62–80; PULSE 62–81; RESP 18–20; TEMP 36.5–36.7; O2SAT 97–98
--- OUTSIDE RECORDS SUMMARY | 2025-06-19 08:32 | XMS_ITS | Encounter Summary ---
Author Organization [facility] ([place], [place], [place], [place]) Address [address] [place] [address] Care Team Providers Care Life Enrichment Assistant Name Role Phone Avel Traore MD Primary Care Provider [phone] Encounter Details Date Type Department Care Team (Late st Contact Info) Description 06/15/2019 Transcribed Document [facility] Family Medicine [facility] [place] [address] ProviderPhil MD [address] [place] [address] Social History Tobacco Use Types Packs/Day Years Used Date Smoking Tobacco: Never Assessed Sex and Gender Information Value Date Recorded Sex Assigned at Not on file Legal Sex Male 1:29 PM CDT Gender Identity Not on file Sexual Orientation Not on file documented as of this encounter Miscellaneous Notes * Cerner Conversion Note - Phil Singh MD - 06/15/2019 9:35 AM CDT Stroke/Warfarin Instructions Entered On: 06/15/2019 9:35 EDT Performed On: 06/15/2019 9:35 EDT by Edvin Fallon, Rn Stroke/Warfarin Instructions Stroke/TIA Discharge Ins : N/A Warfarin Discharge Ins : N/A Edvin Fallon Rn - 06/15/2019 9:35 EDT Electronically signed by Ailyn Wolfe Conversion Associate Professor Of Forestry Cerner at 03/17/2023 8:53 PM CDT documented in this encounter Plan of Treatment Not on file documented as of this encounter Visit Diagnoses Not on filedocumented in this encounter Care Teams Life Enrichment Assistant Relationship Specialty Start Date End Date Avel Traore MD [address] [place] [address] PCP - General General Internal Medicine 09/21/24 documented as of this encounter
--- OUTSIDE RECORDS SUMMARY | 2025-06-19 08:32 | XMS_ITS | Encounter Summary ---
Author Organization [facility] Address [address] [place] [address] Care Team Providers Care Mill Labor Supervisor Name Role Phone Avel Traore MD Primary Care Provider [phone] Reason for Visit * Reason Comments Med Refill Encounter Details Date Type Department Care Team (Late st Contact Info) Description 06/19/2025 Refill [facility] [address] [place] [address] [place] [phone] Avel Traore MD [address] [place] [address] [place] [address] Seasonal allergic rhinitis due to pollen Social History Tobacco Use Types Packs/Day Years [...] on file documented as of this encounter Plan of Treatment Not on file documented as of this encounter Visit Diagnoses Diagnosis Seasonal allergic rhinitis due to pollen documented in this encounter Care Teams Mill Labor Supervisor Relationship Specialty Start Date End Date Avel Traore MD [address] [place] [address] PCP - General Internal Medicine 11/17/22 documented as of this encounter
--- OUTSIDE RECORDS SUMMARY | 2025-06-19 08:32 | XMS_ITS | Encounter Summary ---
Author Organization [employer] ([place], [place], [place], [place]) Address [address] [place] [address] Care Team Providers Care Java Web Engineer Name Role Phone Avel Traore MD Primary Care Provider [phone] Encounter Details Date Type Department Care Team (Late st Contact Info) Description 06/15/2019 Transcribed Document [facility] [place] [facility] [place] [address] ProviderPhil MD [address] [place] [id number] Social History Tobacco Use Types Packs/Day Years Used Date Smoking Tobacco: Never Assessed Sex and Gender Information Value Date Recorded Sex Assigned at Not on file Legal Sex Male 1:29 PM CDT Gender Identity Not on file Sexual Orientation Not on file documented as of this encounter Miscellaneous Notes * Cerner Conversion Note - Phil Singh MD - 06/15/2019 12:28 PM CDT Patient: DALLAS BRODY Age: 69 Years Sex: Male : 1950 Admit Date 06/13/2019 06:15 Discharge Date 06/15/2019 12:17 Primary Care Provider KETAN PHAM (REF), -MED Discharge Diagnosis 1. Frequent LVOT\VEB 2. HTN 3. Mild renal insufficiency 4. BERNARDO Reason for Hospitalization Mr. Brody presented to [facility] for planned LVOT ablation on 06/13 Hospital Course Mr. Brody presented to [facility] for planned LVOT ablation on 06/13, underwent procedure without complication. Over night he had frequent bradycardia and we decided to keep him one more night to monitor, he continued with bradycardia and PVC's, his Atenolol was discontinued and he was started on Flecainide 50mg bid. He denies chest pain, palpitations or fatigue, bilateral groin sites dressing CDI, his home medications were resumed except for Hydrolazine. He will follow up in office 1 month. Vital Signs T: 37 ??C TMIN: 36.6 ??C TMAX: 37.7 ??C HR: 49(Monitored) RR: 18 BP: 161/67 SpO2: 97% Oxygen Settings (Last) Oxygen Therapy Mode: Room air (06/14/19 18:49:00 EDT) Physical Exam General: [Alert and oriented, well nourished, no acute distress]. Neurologic: [Awake, alert, and oriented X3, CN II-XII intact]. Eye: [PERRL, EOMI, normal conjuctiva]. HENT: [Normocephalic, clear tympanic membranes, normal hearing, moist oral mucosa, no scleral icterus, no sinus tenderness]. Neck: [Supple, non-tender, no carotid bruits, no JVD, no lymphadenopathy]. Lungs: [Clear to auscultation and percussion, non-labored respiration]. Heart: [Normal rate, regular rhythm, no murmur, gallop or edema]. Abdomen: [Soft, non-tender, non-distended, normal bowel sounds, no masses]. Musculoskeletal: [Normal range of motion and strength, no tenderness or swelling]. Skin: [Skin is warm, dry and pink, no rashes or lesions, bilateral groin sites look good]. Psychiatric: [Cooperative, appropriate mood and affect]. Discharge Disposition Home Discharge Follow Up MIKE LEDESMA MD-RUTH - 07/17/2019 11:30 Discharge Medications (9) Active amLODIPine 10 mg oral tablet 5 mg = 0.5 Tab, Oral, BID clonidine 0.2 mg oral tablet 0.2 mg = 1 Tab, Oral, Daily Eliquis 5 mg oral tablet 5 mg = 1 Tab, Oral, [id number] flecainide 100 mg oral tablet 50 mg = 0.5 Tab, Oral, BID FLUoxetine 10 mg oral tablet 10 mg = 1 Tab, Oral, Daily Lasix 20 mg oral tablet 20 mg = 1 Tab, PRN, Oral, Daily levothyroxine 88 mcg (0.088 mg) oral tablet 88 mcg = 1 Tab, Oral, Daily losartan 25 mg oral tablet , Oral, QPM Osteo Bi-Flex 2 Tab, Oral, Daily Code Status Start: 06/13/19 12:05:00 EDT, Full Code, Continuous Order Condition on Discharge stable Consulting Physicians EVELYNE ABDI MD Current Diet Order Diet, Adult - Ordered -- Start: 06/13/19 16:05:00 EDT, Cardiac Diet Patient Discharge Summary Orders Discharge Activity: Discharge Activity: No strenuous activities Diet: Discharge Diet: Resume usual diet as tolerated Pending Labs No Labs on Record Time Spent on Discharge 45 minutes documented in this encounter Plan of Treatment Not on file documented as of this encounter Visit Diagnoses Not on filedocumented in this encounter Care Teams Java Web Engineer Relationship Specialty Start Date End Date Avel Traore MD [address] [place] [address] [place] [address] PCP - General General Internal Medicine 09/21/24 documented as of this encounter
--- OUTSIDE RECORDS SUMMARY | 2025-06-19 08:32 | XMS_ITS | Encounter Summary ---
Author Organization [employer] ([place], [place], [place], [place]) Address [address] [place] [address] Care Team Providers Care Digital Production Manager Name Role Phone Avel Traore MD Primary Care Provider [phone] Encounter Details Date Type Department Care Team (Late st Contact Info) Description 06/15/2019 Transcribed Document [facility] [place] [address] ProviderPhil MD [address] [place] [address] Social History Tobacco Use Types Packs/Day Years Used Date Smoking Tobacco: Never Assessed Sex and Gender Information Value Date Recorded Sex Assigned at Not on file Legal Sex Male 1:29 PM CDT Gender Identity Not on file Sexual Orientation Not on file documented as of this encounter Miscellaneous Notes * Cerner Conversion Note - Phil Singh MD - 06/15/2019 4:55 PM CDT ED Discharge Entered On: 06/15/2019 16:57 EDT Performed On: 06/15/2019 16:55 EDT by MANOJ PHAM RN Discharge Process Patient Disposition : Admit/Observe Personal Belongings With Patient : Yes MANOJ PHAM RN - 06/15/2019 16:55 EDT Admission, ED Nurse Report Accepted By : Report called to ivelisse Clifton Nurse Report Acceptance Time : 06/15/2019 16:57 EDT `Nurse Report (Hand Off) : Called MANOJ PHAM RN - 06/15/2019 16:55 EDT documented in this encounter Plan of Treatment Not on file documented as of this encounter Visit Diagnoses Not on filedocumented in this encounter Care Teams Digital Production Manager Relationship Specialty Start Date End Date Avel Traore MD [address] [place] [address] [place] [address] PCP - General General Internal Medicine 09/21/24 documented as of this encounter
--- OUTSIDE RECORDS SUMMARY | 2025-06-19 08:32 | XMS_ITS | Encounter Summary ---
Author Organization [employer] ([place], [place], [place], [place]) Address [address] [place] [address] Care Team Providers Care Calender Machine Operator Helper Name Role Phone Avel Traore MD Primary Care Provider [phone] Encounter Details Date Type Department Care Team (Late st Contact Info) Description 06/15/2019 Transcribed Document [facility] [place] [facility] [place] [address] ProviderPhil MD [address] [place] [address] Social History Tobacco Use Types Packs/Day Years Used Date Smoking Tobacco: Never Assessed Sex and Gender Information Value Date Recorded Sex Assigned at Not on file Legal Sex Male 1:29 PM CDT Gender Identity Not on file Sexual Orientation Not on file documented as of this encounter Miscellaneous Notes * Cerner Conversion Note - Phil Singh MD - 06/15/2019 10:15 AM CDT [facility] [place] [address] DALLAS BRODY :1950 Visit Time:06/13/2019 Your Visit Summary Your Care Team Admitting Physician - MIKE LEDESMA MD-RUTH Attending Physician - MIKE LEDESMA MD-CAR Primary Care Physician - KETAN PHAM (REF), -MED Referring Physician - MIKE LEDESMA MD-CAR Your Diagnosis Ventricular tachycardia, Ventricular tachycardia Discharge Vitals Temperature 37.4 ??C Heart Rate (Monitored) 56 Respiratory Rate 16 Blood Pressure 159/57 What to do next Instructions From Your Care Team Please STOP taking Hydralazine. Discharge Activity: Discharge Activity: No strenuous activities Diet: Discharge Diet: Resume usual diet as tolerated Follow-Up Appointments Follow Up with MIKE LEDESMA MD-RUTH When 07/17/2019 11:30 AM EDT Comments Appointment has been made Where: [address] [place] [address] [place] [id number]- Medications What How Much When Instructions Next Dose apixaban (Eliquis 5 mg oral tablet) 1 Tablet(s) Oral Interval Every 12 Hours Pt given samples. flecainide (flecainide 100 mg oral tablet) 0.5 Tablet(s) Oral Two Times A Day Refills: 6 Pickup at [facility] furosemide (Lasix 20 mg oral tablet) 1 Tablet(s) Oral Every Day as needed for Edema amLODIPine (amLODIPine 10 mg oral tablet) 0.5 Tablet(s) Oral Two Times A Day chondroitin-glucosamine (Osteo Bi-Flex) 2 Tablet(s) Oral Every Day cloNIDine (clonidine 0.2 mg oral tablet) 1 Tablet(s) Oral Every Day FLUoxetine (FLUoxetine 10 mg oral tablet) 1 Tablet(s) Oral Every Day levothyroxine (levothyroxine 88 mcg (0.088 mg) oral tablet) 1 Tablet(s) Oral Every Day losartan (losartan 25 mg oral tablet) Oral Every Evening Pharmacy Information [facility]: [phone] [place] [id number] [phone] Take your medications faithfully. Do NOT skip medication. Do NOT stop taking medications without the direction of a physician. Carry a list of your medications with you at all times, and take this medication list with you to your first follow up visit. Report any side effects. Avoid herbal remedies unless discussed with your physician. As part of your treatment plan, your physician may have prescribed a limited course of a controlled substance. This medication may be given to help people with moderate or severe pain or for other medical conditions, but there are risks involved with treatment. Common side effects may include nausea, constipation, drowsiness, sweating, itching, dry mouth, and rash. More serious side effects may include cognitive and motor impairment, like problems with thinking, concentrating, alertness, and movement (e.g. slowed reflexes), and driving and operating heavy machinery can be dangerous. It is important for you to talk to your physician if you have these side effects or questions. These controlled substances can produce physical dependence and be habit-forming if taken for an extended period of time, which means that the body has gotten used to them and may experience withdrawal symptoms if they are abruptly stopped. Withdrawal symptoms can include runny nose, sweating, goose bumps, diarrhea, abdominal cramping, rapid heartbeat, difficulty sleeping, and nervousness. Please dispose of unused and medications per your retail pharmacy guidance. Allergies levoFLOXacin (couldn't move, severe reaction) Immunizations This Visit No Immunizations Found Education Materials Cardiac Ablation Cardiac ablation is a procedure to disable (ablate) a small amount of heart tissue in very specific places. The heart has many electrical connections. Sometimes these connections are abnormal and can cause the heart to beat very fast or irregularly. Ablating some of the problem areas can improve the heart rhythm or return it to normal. Ablation may be done for people who: ??? Have Yjskf-Jnvmqbheh-Lbwhj syndrome. ??? Have fast heart rhythms (tachycardia). ??? Have taken medicines for an abnormal heart rhythm (arrhythmia) that were not effective or caused side effects. ??? Have a high-risk heartbeat that may be life-threatening. During the procedure, a small incision is made in the neck or the groin, and a long, thin, flexible tube (catheter) is inserted into the incision and moved to the heart. Small devices (electrodes) on the tip of the catheter will send out electrical currents. A type of X-ray (fluoroscopy) will be used to help guide the catheter and to provide images of the heart. Tell a health care provider about: ??? Any allergies you have. ??? All medicines you are taking, including vitamins, herbs, eye drops, creams, and wmwc-baq-flgkdda medicines. ??? Any problems you or family members have had with anesthetic medicines. ??? Any blood disorders you have. ??? Any surgeries you have had. ??? Any medical conditions you have, such as kidney failure. ??? Whether you are or may be . What are the risks? Generally, this is a safe procedure. However, problems may occur, including: ??? Infection. ??? Bruising and bleeding at the catheter insertion site. ??? Bleeding into the chest, especially into the sac that surrounds the heart. This is a serious complication. ??? Stroke or blood clots. ??? Damage to other structures or organs. ??? Allergic reaction to medicines or dyes. ??? Need for a permanent pacemaker if the normal electrical system is damaged. A pacemaker is a small computer that sends electrical signals to the heart and helps your heart beat normally. ??? The procedure not being fully effective. This may not be recognized until months later. Repeat ablation procedures are sometimes required. What happens before the procedure? Follow instructions from your health care provider about eating or drinking restrictions. ??? Ask your health care provider about: ? Changing or stopping your regular medicines. This is especially important if you are taking diabetes medicines or blood thinners. ? Taking medicines such as aspirin and ibuprofen. These medicines can thin your blood. Do not take these medicines before your procedure if your health care provider instructs you not to. ??? Plan to have someone take you home from the hospital or clinic. ??? If you will be going home right after the procedure, plan to have someone with you for 24 hours. What happens during the procedure? To lower your risk of infection: ? Your health care team will wash or sanitize their hands. ? Your skin will be washed with soap. ? Hair may be removed from the incision area. ??? An IV tube will be inserted into one of your veins. ??? You will be given a medicine to help you relax (sedative). ??? The skin on your neck or groin will be numbed. ??? An incision will be made in your neck or your groin. ??? A needle will be inserted through the incision and into a large vein in your neck or groin. ??? A catheter will be inserted into the needle and moved to your heart. ??? Dye may be injected through the catheter to help your surgeon see the area of the heart that needs treatment. ??? Electrical currents will be sent from the catheter to ablate heart tissue in desired areas. There are three types of energy that may be used to ablate heart tissue: ? Heat (radiofrequency energy). ? Laser energy. ? Extreme cold (cryoablation). ??? When the necessary tissue has been ablated, the catheter will be removed. ??? Pressure will be held on the catheter insertion area to prevent excessive bleeding. ??? A bandage (dressing) will be placed over the catheter insertion area. The procedure may vary among health care providers and hospitals. What happens after the procedure? Your blood pressure, heart rate, breathing rate, and blood oxygen level will be monitored until the medicines you were given have worn off. ??? Your catheter insertion area will be monitored for bleeding. You will need to lie still for a few hours to ensure that you do not bleed from the catheter insertion area. ??? Do not drive for 24 hours or as long as directed by your health care provider. Summary ??? Cardiac ablation is a procedure to disable (ablate) a small amount of heart tissue in very specific places. Ablating some of the problem areas can improve the heart rhythm or return it to normal. ??? During the procedure, electrical currents will be sent from the catheter to ablate heart tissue in desired areas. This information is not intended to replace advice given to you by your health care provider. Make sure you discuss any questions you have with your health care provider. Document Released: 04/03/2010 Document Revised: 10/04/2017 Document Reviewed: 10/04/2017 [email or web address] Interactive Patient Education ?? 2019 [employer]. Emergency Awareness and Preventative Care STROKE is an EMERGENCY Every Minute Counts Act FAST and Check for these signs: FACE Does the face look uneven? ARM Does one arm drift down? SPEECH Does their speech sound strange? TIME Call at any sign of stroke Stroke Risk Factors Atrial Fibrillation (irregular heartbeat) Diabetes Family history of stroke Heart Disease Heavy alcohol use High Blood Pressure High Cholesterol Physical inactivity and obesity Smoking Cigarette Smoking The facts are clear, cigarette smoking will shorten your life. Smoking can cause many illnesses along the way. As a healthcare provider, we recommend that you stop smoking. Assistance with quitting is available by contacting 9-664-UABM-NOW. This is a free resource providing counseling, support, and referral. Or you may contact your personal physician. National Suicide Prevention Lifeline: The National Suicide Prevention Lifeline is a national network of local crisis centers that provides free and confidential emotional support to people in suicidal crisis or emotional distress 24 hours a day, 7 days a week. Don't Wait! Stop a Heart Attack Before it Starts What is a heart attack? A heart attack is damage or to a part of the heart from severely decreased or lack of blood flow to the heart. Over time, arteries can become narrow from the buildup of fat and cholesterol, which is called plaque. The plaque can rupture causing a blood clot to form. When the blood clot forms, the artery can become severely narrowed or completely blocked, causing a heart attack. Heart attack is the leading cause of in the [place]. 85% of muscle damage occurs within the first 2 hours. Delay in the recognition of heart attack symptoms increases the chances of . Know the early symptoms of a heart attack: Nausea Feeling of fullness in chest Jaw Pain Pain that travels down one or both arms Fatigue/being tired Anxiety Back Pain Chest pressure, squeezing, or discomfort Shortness of breath Sweating, or a cold sweat Feeling of impending doom There are unusual signs of a heart attack, too! Women, the elderly, and diabetics may present with atypical symptoms: Fainting/dizziness Weakness Confusion Risk Factors for a Heart Attack Some heart disease risk factors, such as age and family history, cannot be changed. Others, like smoking and lack of exercise, can be changed. Smoking High Cholesterol High Blood Pressure Family History Obesity Age Gender (Males are at higher risk) Lack of Exercise Diabetes Diet Stress Excessive Alcohol Intake If you or someone you know is experiencing the signs and symptoms of a heart attack, DON???T DELAY. Call immediately and seek help. If someone collapses, perform CPR! Do not attempt to drive if you are having symptoms of heart attack. Hands-Only CPR Why Hands-Only CPR? Hands-Only CPR has been shown to be as effective as conventional CPR for cardiac arrests that occur outside of a hospital. Survival depends on immediately receiving CPR from someone nearby. How do you perform Hands-Only CPR? There are two easy steps: Call if you see a teen or adult collapse Push hard and fast in the center of the chest at a beat of 100 beats per minute. Save a life! 4 WAYS TO GET AHEAD OF SEPSIS SEPSIS is a MEDICAL EMERGENCY. Time matters! Infections put you and your family at risk for a life-threatening condition called sepsis. Sepsis is the body's extreme response to an infection. It is life-threatening, and without timely treatment, sepsis can rapidly lead to tissue damage, organ failure, and . Sepsis happens when an infection you already have-in your skin, lungs, urinary tract or somewhere else-triggers a chain reaction throughout your body. 1 PREVENT INFECTIONS Take good care of chronic conditions. Talk to your doctor about getting the recommended vaccines. 2 PRACTICE GOOD HYGIENE Wash your hands frequently. Keep cuts or open sores clean and covered until they are healed. 3 KNOW THE SYMPTOMS Confusion or disorientation Shortness of breath High heart rate Fever, shivering, or feeling very cold Extreme pain or discomfort Clammy or sweaty skin 4 ACT FAST Get medical care IMMEDIATELY if you suspect sepsis or if you have an infection that is not getting better or is getting worse. To learn more about sepsis and how to prevent infections, visit www.cdc.gov/sepsis. Test Results Laboratory or Other Results This Visit (last charted value for your 06/13/2019 visit) Hematology 06/13/19 06:37:00 WBC: 4.8 K/uL -- Normal range between ( 3.6 and 9.5 ) RBC: 5.75 Million/uL -- Normal range between ( 4.20 and 5.70 ) Hct: 36.5 % -- Normal range between ( 40.1 and 51.0 ) Hgb: 11.0 g/dL -- Normal range between ( 13.5 and 17.3 ) Platelet Count: 199 K/uL -- Normal range between ( 163 and 369 ) MCH: <20.0 pg -- Normal range between ( 25.6 and 32.2 ) MCHC: 30.1 Gram/dL -- Normal range between ( 32.2 and 36.5 ) MCV: 63.5 fL -- Normal range between ( 79.0 and 94.8 ) Slide Review: No RDW: 16.5 % -- Normal range between ( 11.7 and 14.9 ) MPV: 9.8 fL -- Normal range between ( 9.4 and 12.4 ) General Chemistry 06/14/19 06:04:00 Creatinine Level: 1.50 mg/dL -- Normal range between ( 0.70 and 1.30 ) Sodium Level: 146 mmol/L -- Normal range between ( 136 and 146 ) Potassium Level: 4.1 mmol/L -- Normal range between ( 3.5 and 5.1 ) Chloride Level: 116 mmol/L -- Normal range between ( 102 and 112 ) Carbon Dioxide Level: 26 mmol/L -- Normal range between ( 21 and 32 ) Anion Gap: 8 -- Normal range between ( 9 and 20 ) Bun/Creatinine: 14.7 -- Normal range between ( 8.0 and 20.0 ) Calcium Level: 8.6 mg/dL -- Normal range between ( 8.4 and 10.1 ) eGFR : 56 mL/min/1.73m2 eGFR NonAfrican: 46 mL/min/1.73m2 Glucose Level: 92 mg/dL -- Normal range between ( 74 and 106 ) Blood Urea Nitrogen: 22 mg/dL -- Normal range between ( 7 and 22 ) 06/13/19 06:37:00 Bilirubin Total: 0.5 mg/dL -- Normal range between ( 0.2 and 1.2 ) A/G Ratio: 1.0 -- Normal range between ( 1.1 and 2.5 ) ALT: 18 Units/Liter -- Normal range between ( 16 and 61 ) AST: 15 Units/Liter -- Normal range between ( 5 and 37 ) Globulin: 3.5 Gram/dL -- Normal range between ( 1.5 and 4.5 ) Alk Phos: 64 Units/Liter -- Normal range between ( 27 and 136 ) Magnesium Level: 2.3 mg/dL -- Normal range between ( 1.5 and 2.4 ) Protein Total: 7.0 Gram/dL -- Normal range between ( 6.4 and 8.2 ) Albumin Level: 3.5 Gram/dL -- Normal range between ( 3.4 and 5.0 ) Coagulation 06/13/19 12:15:00 ACT POC: 125 Second(s) -- Normal range between ( 74 and 137 ) Endocrinology 06/13/19 06:37:00 TSH: 1.750 mcInt Units/mL -- Normal range between ( 0.358 and 3.740 ) Echo 06/13/19 11:35:54 [facility] / Follow Up: [facility] / Follow Up Patient Name:DALLAS BRODY I have received and understand this information and was given the opportunity to ask questions. Patient/Supervisor Inspection And Testing Name: Patient/Supervisor Inspection And Testing Signature: Relationship to Patient: Clinician/Hospital Supervisor Inspection And Testing Signature: Date: documented in this encounter Plan of Treatment Not on file documented as of this encounter Visit Diagnoses Not on filedocumented in this encounter Care Teams Calender Machine Operator Helper Relationship Specialty Start Date End Date Avel Traore MD [address] [place] [address] PCP - General General Internal Medicine 09/21/24 documented as of this encounter
--- OUTSIDE RECORDS SUMMARY | 2025-06-19 08:32 | XMS_ITS | Encounter Summary ---
Author Organization [employer] ([place], [place], [place], [place]) Address [address] [place] [address] Care Team Providers Care Wheel Setter Name Role Phone Avel Traore MD Primary Care Provider [phone] Encounter Details Date Type Department Care Team (Late st Contact Info) Description 06/15/2019 Transcribed Document [facility] [place] Family Medicine [facility] [place] [address] ProviderPhil MD [facility] [place] [address] Social History Tobacco Use Types Packs/Day Years Used Date Smoking Tobacco: Never Assessed Sex and Gender Information Value Date Recorded Sex Assigned at Not on file Legal Sex Male 1:29 PM CDT Gender Identity Not on file Sexual Orientation Not on file documented as of this encounter Miscellaneous Notes * Cerner Conversion Note - Phil Singh MD - 06/15/2019 2:52 PM CDT Admission History, Adult Entered On: 06/15/2019 17:46 EDT Performed On: 06/15/2019 14:52 EDT by Shania Sanderson RN Advance Directive Patient has Advance Directive *Q : No, patient refuses Advance Directive information Shania Sanderson RN - 06/15/2019 17:35 EDT Anesthesia/Transfusion History Family History of Anesthesia Reaction : Prior transfusion without reaction Transfusion History : Prior anesthesia reaction Type of Anesthesia Reaction : Excessive nausea/vomiting Family History of Anesthesia Reaction : None Shania Sanderson RN - 06/15/2019 17:35 EDT Functional Assessment Living Situation : Home Patient Lives With : Spouse MIR Hx Falls Immediate/Within 3 Months : No Current Home Treatments : BiPAP Shania Sanderson RN - 06/15/2019 17:35 EDT General Info Preferred Name : Jeremy Arrived From : Emergency department Mode of Arrival on Unit : Ambulatory Legal Guardian : Unaccompanied Support Person/Pt Rep Name : Neetu Slaughter- Support Person/Pt Rep Contact Information : [phone] Want Family/Rep/Phys Notified of Admit : No Emergency Contact #1 : Neetu Slaughter Emergency Contact #1 Emergency Contact #1 Relationship : spouse Emergency Contact #2 : na Emergency Contact #2 Phone Number : na Emergency Contact #2 Relationship : na Chief Complaint : pt here c/o near syncopal episode this date. pt was jsut released from this facility after ablation this past Wednesday. Information Obtained From : Patient Primary Language : Persian Communication Barrier : None Shania Sanderson RN - 06/15/2019 17:35 EDT Fall Risk Scales ABCs Fall Injury Risk Identification : None MIR Hx Falls Immediate/Within 3 Months : No Mir Secondary Diagnosis : No MIR Use of Ambulatory Aid : None MIR IV Therapy or IV Access : Yes Mir Gait/Transferring : Normal, bedrest, immobile Mir Mental Status : Oriented to own ability Mir Fall Risk Score : 20 MIR Fall Scale Risk Level : 0-24 Low Risk [place] Fall Interventions : Adequate lighting, Assistive devices within reach, Bed in low position, Call device within reach, Frequent orientation to call device, Frequent orientation to surroundings, Hourly comfort/safety rounds, Non-slip footwear, Personal items within reach, Reinforced to call for assistance before getting out of bed, Room free of clutter/spills, Upper side-rails up, Wheels locked, Wires/Cords secured Shania Sanderson RN - 06/15/2019 17:35 EDT Health Histories Smoking Status : Never (less than 100 in lifetime; none in last 30 days) Smokeless Tobacco Status : Never Shania Sanderson RN - 06/15/2019 17:35 EDT Social History (As Of: 06/15/2019 17:46:49 EDT) Tobacco: Never (less than 100 in lifetime) Smoking Status. (Last Updated: 06/13/2019 06:47:25 EDT by DOMITILA VILLALTA RN) Alcohol: Alcohol Use History No. (Last Updated: 06/13/2019 06:47:30 EDT by DOMITILA VILLALTA RN) Substance Abuse: Drug Use Hx: No. Use in Last 12 Months: No. (Last Updated: 06/13/2019 06:47:34 EDT by DOMITILA VILLALTA RN) Height and Weight, Clinical Dosing Height Source : Stated Height Entry Format : [place] Height, Feet : 5 ft(Converted to: 152 cm, 60 Inch) Height, Inches : 7 Inch(Converted to: 0 ft 7 Inch, 17.78 cm) Clinical Height : 170.18 cm Weight Source : Stated [place] Body Weight : 65 kg Shania Sanderson RN - 06/15/2019 17:35 EDT Estimated Weight Type of Weight Measurement Est : [place] Weight, est lb : 178 lb(Converted to: 81 kg) Estimated Clinical Dosing Weight : 80.91 kg Shania Sanderson RN - 06/15/2019 17:35 EDT Infectious Disease History Infectious Disease History : Chicken pox/Shingles, Influenza Isolation Needed : Standard Fever/Chills Last 48 Hours : No Travel To Regions with Travel Advisories : No Travel Outside [place] Within Last 30 Days : No Contact With Traveler to Advisory Region : No Tuberculosis Symptoms : None Shania Sandesron RN - 06/15/2019 17:35 EDT Influenza Vaccine Asmt, Adult Previous Vaccines from Immunization Schedule : No qualifying data available. Influenza Immunization, Current Season : Outside of influenza season Shania Sanderson RN - 06/15/2019 17:35 EDT Pneumococcal Vaccine Previous Vaccines from Immunization Schedule : No qualifying data available. Pneumonia Immunization Received : Yes Shania Sanderson RN - 06/15/2019 17:35 EDT Nutrition History Adaptive Feeding Equipment : Regular Oral Medication Administration : By mouth Eating Poorly Due to Decreased Appetite : No Unplanned Weight Loss in Past 3-6 Months : No Malnutrition Screening Tool Total(mal) : 0 Malnutrition Screening Tool Risk Level : Patient not at risk Shania Sanderson RN - 06/15/2019 17:35 EDT Psychosocial History Do You Have a History of the Following? : Patient denies history Currently in Unsafe Situation : No Tried to Harm Yourself in the Past? : No Thoughts of Harming/Killing Yourself : No Shania Sanderson RN - 06/15/2019 17:35 EDT Sleep Apnea Risk Assmt BiPAP/CPAP Ordered for Home Use : Yes Hx of Obstructive Sleep Apnea Diagnosis : Yes BiPAP/CPAP Used at Home : Yes Age over 50 Years Old : Yes Gender Male : Yes Shania Sanderson RN - 06/15/2019 17:35 EDT Valuables and Belongings Valuables and Belongings : Clothing, Personal devices, Personal items, No comfort items, No jewelry, No assistive devices, No respiratory devices, No medications Clothing : Common streetwear, Other: shoes Clothing Disposition : With patient Personal Device Disposition : With patient Personal Devices : Other: top bridge permanent Personal Items : Cell phone, Other: database tester Personal Items Disposition : With patient Shania Sanderson RN - 06/15/2019 17:35 EDT documented in this encounter Plan of Treatment Not on file documented as of this encounter Visit Diagnoses Not on filedocumented in this encounter Care Teams Wheel Setter Relationship Specialty Start Date End Date Avel Traore MD [address] [place] [address] PCP - General General Internal Medicine 09/21/24 documented as of this encounter
--- OUTSIDE RECORDS SUMMARY | 2025-06-19 08:32 | XMS_ITS | Encounter Summary ---
Author Organization [employer] ([place], [place], [place], [place]) Address [address] [place] [address] Care Team Providers Care Radio Installer Name Role Phone Avel Traore MD Primary Care Provider [phone] Encounter Details Date Type Department Care Team (Late st Contact Info) Description 06/15/2019 Transcribed Document [facility] [place] [facility] [place] [address] Phil Singh MD [address] [place] [address] Social History Tobacco Use Types Packs/Day Years Used Date Smoking Tobacco: Never Assessed Sex and Gender Information Value Date Recorded Sex Assigned at Not on file Legal Sex Male 1:29 PM CDT Gender Identity Not on file Sexual Orientation Not on file documented as of this encounter Miscellaneous Notes * Cerner Conversion Note - Phil Sinhg MD - 06/15/2019 9:36 AM CDT Patient Education Materials Follows: Cardiac Ablation Cardiac ablation is a procedure [...] be done for people who: ??? Have Vvexy-Opxowdbur-Ibdku syndrome. ??? Have fast heart rhythms (tachycardia). [...] including vitamins, herbs, eye drops, creams, and wzwr-gjt-bnqhgqe medicines. ??? Any problems you or family [...] 04/03/2010 Document Revised: 10/04/2017 Document Reviewed: 10/04/2017 [employer] [facility] [employer] [facility] Interactive Patient Education ? 2019 [employer]. Electronically signed by Ailyn Wolfe Conversion Tactical Air Control Party Manager Cerner at 03/17/2023 9:11 PM CDT documented in this encounter Plan of Treatment Not on file documented as of this encounter Visit Diagnoses Not on filedocumented in this encounter Care Teams Radio Installer Relationship Specialty Start Date End Date Avel Traore MD [address] [place] [address] [place] [address] PCP - General General Internal Medicine 09/21/24 documented as of this encounter
--- OUTSIDE RECORDS SUMMARY | 2025-06-19 08:32 | XMS_ITS | Encounter Summary ---
Author Organization [employer] ([place], [place], [place], [place]) Address [address] [place] [address] Care Team Providers Care Loan Counselor Name Role Phone Avel Traore MD Primary Care Provider [phone] Encounter Details Date Type Department Care Team (Late st Contact Info) Description 06/15/2019 Transcribed Document [facility] [place] [facility] [place] [address] ProviderPhil MD [facility] [place] [address] Social History Tobacco Use Types Packs/Day Years Used Date Smoking Tobacco: Never Assessed Sex and Gender Information Value Date Recorded Sex Assigned at Not on file Legal Sex Male 1:29 PM CDT Gender Identity Not on file Sexual Orientation Not on file documented as of this encounter Miscellaneous Notes * Cerner Conversion Note - Phil Singh MD - 06/15/2019 1:12 PM CDT ED Assessment Entered On: 06/15/2019 13:29 EDT Performed On: 06/15/2019 13:26 EDT by Mane Childers DAIRY NUTRITION CONSULTANT Quick Look Assessment Level of Consciousness : Alert, Awake Affect/Behavior : Appropriate, Calm Orientation : Oriented x 4 Mane Childers RN - 06/15/2019 13:26 EDT ED General-Functional Assess Information Obtained From : Patient Communication Barrier : None Primary Language : Arabic Any Spiritual/Cultural Needs or Requests : No Currently in Unsafe Situation : No Mane Childers RN - 06/15/2019 13:26 EDT Social Habits Smoking Status : Never (less than 100 in lifetime; none in last 30 days) Smokeless Tobacco Status : Never Desires Tobacco Cessation Calc : 0 Mane Childers RN - 06/15/2019 13:26 EDT Social History (As Of: 06/15/2019 13:29:25 EDT) Tobacco: Never (less than 100 in lifetime) Smoking Status. (Last Updated: 06/13/2019 06:47:25 EDT by DOMITILA VILLALTA, RN) Alcohol: Alcohol Use History No. (Last Updated: 06/13/2019 06:47:30 EDT by DOMITILA VILLALTA, RN) Substance Abuse: Drug Use Hx: No. Use in Last 12 Months: No. (Last Updated: 06/13/2019 06:47:34 EDT by DOMITILA VILLALTA, RN) EENT Assessment EENT Assessment WDL : Mane Moeller RN - 06/15/2019 13:26 EDT Cardiovascular ASMT, ED Cardiovascular Assessment WDL : WDJacob with exceptions (Comment: pt here after having a syncopal episode prior to arrical pt released from here after rpevious cardiac ablation. pt denies chest pain or SOA no n/v. pt is bradycardic at this time [Mane Childers RN - 06/15/2019 13:26 EDT] ) Mane Childers RN - 06/15/2019 13:26 EDT Respiratory Respiratory Assessment WDL : Mane Moeller RN - 06/15/2019 13:26 EDT Gastrointestinal ED Gastrointestinal Assessment WDL : Mane Moeller RN - 06/15/2019 13:26 EDT Genitourinary Assessment, ED Genitourinary Assessment WDL : Mane Moeller RN - 06/15/2019 13:26 EDT Musculoskeletal Musculoskeletal Assessment WDL : Mane Moeller RN - 06/15/2019 13:26 EDT Integumentary Assessment Integumentary Assessment WDL : Mnae Moeller RN - 06/15/2019 13:26 EDT Neurologic ASMT, ED Neurologic Assessment WDL : Mane Moeller RN - 06/15/2019 13:26 EDT Electronically signed by Yaneth [facility] Conversion Natural Gas Shothole Driller Cerner at 03/17/2023 9:01 PM CDT documented in this encounter Plan of Treatment Not on file documented as of this encounter Visit Diagnoses Not on filedocumented in this encounter Care Teams Loan Counselor Relationship Specialty Start Date End Date Avel Traore MD [address] [place] [address] [place] [address] PCP - General General Internal Medicine 09/21/24 documented as of this encounter
--- OUTSIDE RECORDS SUMMARY | 2025-06-19 08:32 | XMS_ITS | Encounter Summary ---
Author Organization [employer] ([place], [place], [place], [place]) Address [address] [place] [address] Care Team Providers Care Safety Manager Name Role Phone Avel Traore MD Primary Care Provider [phone] Encounter Details Date Type Department Care Team (Late st Contact Info) Description 06/15/2019 Transcribed Document [facility] [place] [facility] [place] [address] ProviderPhil MD [address] [place] [address] Social History Tobacco Use Types Packs/Day Years Used Date Smoking Tobacco: Never Assessed Sex and Gender Information Value Date Recorded Sex Assigned at Not on file Legal Sex Male 1:29 PM CDT Gender Identity Not on file Sexual Orientation Not on file documented as of this encounter Miscellaneous Notes * Cerner Conversion Note - Phil Singh MD - 06/15/2019 5:24 PM CDT [facility] [place] [address] [place] :1950 Visit Time:06/13/2019 Your Visit Summary Your Care Team Admitting Physician - MIKE LEDESMA MD-CAR Attending Physician - MIKE LEDESMA MD-CAR Primary Care Physician - KETAN PHAM (REF), -MED Referring Physician - MIKE LEDESMA MD-CAR Your Diagnosis Ventricular tachycardia, Ventricular tachycardia What to do next Instructions From Your Care Team Please STOP taking Hydralazine. Discharge Activity: Discharge Activity: No strenuous activities Diet: Discharge Diet: Resume usual diet as tolerated Follow-Up Appointments Follow Up with MIKE LEDESMA MD-RUTH When 07/17/2019 11:30 AM EDT Comments Appointment has been made Where: [address] [facility] [address] [place] [address]- Medications What How Much When Instructions Next Dose apixaban (Eliquis 5 mg oral tablet) 1 Tablet(s) Oral Interval Every 12 Hours Pt given samples. flecainide (flecainide 100 mg oral tablet) 0.5 Tablet(s) Oral Two Times A Day Refills: 6 [facility]up at [facility] furosemide (Lasix 20 mg oral tablet) 1 Tablet(s) Oral Every Day as needed for Edema chondroitin-glucosamine (Osteo Bi-Flex) 2 Tablet(s) Oral Every Day cloNIDine (clonidine 0.2 mg oral tablet) 1 Tablet(s) Oral Every Day FLUoxetine (FLUoxetine 10 mg oral tablet) 1 Tablet(s) Oral Every Day levothyroxine (levothyroxine 88 mcg (0.088 mg) oral tablet) 1 Tablet(s) Oral Every Day losartan (losartan 25 mg oral tablet) Oral Every Evening Pharmacy Information [facility]: [address] [place], [place] [id number] [phone] Take your medications faithfully. Do NOT skip [...] be done for people who: ??? Have Hjkjl-Dqfswnjvn-Kpmkv syndrome. ??? Have fast heart rhythms (tachycardia). [...] including vitamins, herbs, eye drops, creams, and povb-evs-imipbmz medicines. ??? Any problems you or family [...] 04/03/2010 Document Revised: 10/04/2017 Document Reviewed: 10/04/2017 [employer] Interactive Patient Education ?? 2019 [employer]. Emergency Awareness and Preventative Care STROKE is [...] Assistance with quitting is available by contacting 4-968-STQM-NOW. This is a free resource providing counseling, [...] was given the opportunity to ask questions. Patient/Development Rep Name: Patient/Development Rep Signature: Relationship to Patient: Clinician/Hospital Development Rep Signature: Date: Electronically signed by Yaneth, Jerzy Conversion Assistant Golf Course Superintendent Cerner at 03/17/2023 8:56 PM CDT documented in this encounter Plan of Treatment Not on file documented as of this encounter Visit Diagnoses Not on filedocumented in this encounter Care Teams Safety Manager Relationship Specialty Start Date End Date Avel Traore MD [address] [place] [address] PCP - General General Internal Medicine 09/21/24 documented as of this encounter
--- OUTSIDE RECORDS SUMMARY | 2025-06-19 08:32 | XMS_ITS | Encounter Summary ---
Author Organization [employer] ([place], [place], [place], [place]) Address [address] [place] [address] Care Team Providers Care Shirt Hemmer Name Role Phone Avel Traore MD Primary Care Provider [phone] Encounter Details Date Type Department Care Team (Late st Contact Info) Description 06/15/2019 Transcribed Document [facility] [place] Family Medicine [facility] [address] ProviderPhil MD [address] [place] [address] Social History Tobacco Use Types Packs/Day Years Used Date Smoking Tobacco: Never Assessed Sex and Gender Information Value Date Recorded Sex Assigned at Not on file Legal Sex Male 1:29 PM CDT Gender Identity Not on file Sexual Orientation Not on file documented as of this encounter Miscellaneous Notes * Cerner Conversion Note - Phil Singh MD - 06/15/2019 3:05 PM CDT Pain Assessment Entered On: 06/17/2019 4:41 EDT Performed On: 06/17/2019 2:49 EDT by Jessie Ordoñez RN Intervention Information: acetaminophen Performed by Jessie Ordoñez RN on 06/17/2019 01:49:00 EDT acetaminophen,650mg Oral,Pain (Mild 1-3) Pain Assessment Pain Assessment : Follow-up assessment Pain Scale Goal : 3 Pain Scale Used : 0-10 Scale Jessie Ordoñez RN - 06/17/2019 4:41 EDT Pain Scale Intensity : 3 Jessie Ordoñez RN - 06/17/2019 4:41 EDT Image 4 - Images currently included in the form version of this document have not been included in the text rendition version of the form. documented in this encounter Plan of Treatment Not on file documented as of this encounter Visit Diagnoses Not on filedocumented in this encounter Care Teams Shirt Hemmer Relationship Specialty Start Date End Date Avel Traore MD [address] [place] [address] [place] [address] PCP - General General Internal Medicine 09/21/24 documented as of this encounter
--- OUTSIDE RECORDS SUMMARY | 2025-06-19 08:32 | XMS_ITS | Encounter Summary ---
Author Organization [employer] ([place], [place], [place], [place]) Address [address] [place] [address] Care Team Providers Care Sales Support Assistant Name Role Phone Avel Traore MD Primary Care Provider Encounter Details Date Type Department Care Team (Late st Contact Info) Description 06/15/2019 Transcribed Document [facility] [place] Family Medicine [facility] [address] ProviderPhil MD [address] [place] [address] Social History Tobacco Use Types Packs/Day Years Used Date Smoking Tobacco: Never Assessed Sex and Gender Information Value Date Recorded Sex Assigned at Not on file Legal Sex Male 1:29 PM CDT Gender Identity Not on file Sexual Orientation Not on file documented as of this encounter Miscellaneous Notes * Cerner Conversion Note - Phil Singh MD - 06/15/2019 5:27 PM CDT [facility] [place] [address] [address] [place] [address] :1950 Visit [...] Comments Appointment has been made Where: [address] [facility] [address] [place] [address]- Medications What How Much When Instructions Next Dose apixaban (Eliquis 5 mg oral tablet) 1 Tablet(s) Oral Interval Every 12 Hours Pt given samples. flecainide (flecainide 100 mg oral tablet) 0.5 Tablet(s) Oral Two Times A Day Refills: 6 Pickup at [facility] 493 furosemide (Lasix 20 mg oral tablet) [...] oral tablet) Oral Every Evening Pharmacy Information [facility]: [address] [place], [place] [phone] Take your medications faithfully. Do NOT skip [...] be done for people who: ??? Have Xsvcr-Dpjhvnluq-Rpkrf syndrome. ??? Have fast heart rhythms (tachycardia). [...] including vitamins, herbs, eye drops, creams, and fxpv-iqr-ndejtcj medicines. ??? Any problems you or family [...] 04/03/2010 Document Revised: 10/04/2017 Document Reviewed: 10/04/2017 [employer] Interactive Patient Education ?? 2019 [employer]. Emergency Awareness and Preventative Care STROKE is [...] Assistance with quitting is available by contacting 6-610-IWEP-NOW. This is a free resource providing counseling, [...] was given the opportunity to ask questions. Patient/It Admin Name: Patient/It Admin Signature: Relationship to Patient: Clinician/Hospital It Admin Signature: Date: documented in this encounter Plan of Treatment Not on file documented as of this encounter Visit Diagnoses Not on filedocumented in this encounter Care Teams Sales Support Assistant Relationship Specialty Start Date End Date Avel Traore MD [address] [address] PCP - General General Internal Medicine 09/21/24 documented as of this encounter
--- OUTSIDE RECORDS SUMMARY | 2025-06-19 08:32 | XMS_ITS | Encounter Summary ---
[facility] Address [address] [place] [address] Care Team Providers Care Dish Stacker Name Role Phone Avel Traore MD Primary Care Provider [phone] Encounter Details Date Type Department Care Team (Latest Contact Info) Description 05/25/2025 Travel Social History Tobacco Use Types Packs/Day Years [...] on filedocumented in this encounter Care Teams Dish Stacker Relationship Specialty Start Date End Date Avel Traore MD [address] [place] [address] PCP - General Internal Medicine 11/17/22 documented as of this encounter
--- OUTSIDE RECORDS SUMMARY | 2025-06-19 08:32 | XMS_ITS | Encounter Summary ---
Author Organization [employer] ([place], [place], [place], [place]) Address [address] [facility] [address] Care Team Providers Care Building Mechanic Name Role Phone Avel Traore MD Primary Care Provider [phone] Encounter Details Date Type Department Care Team (Late st Contact Info) Description 06/15/2019 Transcribed Document [facility] Family Medicine [facility] [place] [address] ProviderPhil MD [address] [place] [address] Social History Tobacco Use Types Packs/Day Years Used Date Smoking Tobacco: Never Assessed Sex and Gender Information Value Date Recorded Sex Assigned at Not on file Legal Sex Male 1:29 PM CDT Gender Identity Not on file Sexual Orientation Not on file documented as of this encounter Miscellaneous Notes * Cerner Conversion Note - Phil Singh MD - 06/15/2019 5:19 PM CDT [facility] [place] [address] [place] :1950 [...] Comments Appointment has been made Where: [address] [facility] [address] [place] [address]- Medications What How Much When Instructions Next Dose apixaban (Eliquis 5 mg oral tablet) 1 Tablet(s) Oral Interval Every 12 Hours Pt given samples. flecainide (flecainide 100 mg oral tablet) 0.5 Tablet(s) Oral Two Times A Day Refills: 6 Pickup at [facility] 493 furosemide (Lasix 20 mg oral tablet) [...] oral tablet) Oral Every Evening Pharmacy Information [phone]: [phone] [place] [id number] [phone] Take your medications faithfully. Do NOT skip [...] be done for people who: ??? Have Kwfte-Vvofieopc-Zoeav syndrome. ??? Have fast heart rhythms (tachycardia). [...] including vitamins, herbs, eye drops, creams, and xfbc-msn-qljkprp medicines. ??? Any problems you or family [...] 04/03/2010 Document Revised: 10/04/2017 Document Reviewed: 10/04/2017 [employer] Patient Education ?? 2019 [employer]. Emergency Awareness and Preventative Care STROKE is [...] Assistance with quitting is available by contacting 6-538-DVBP-NOW. This is a free resource providing counseling, [...] was given the opportunity to ask questions. Patient/Dispatcher Radioactive Waste Disposal Name: Patient/Dispatcher Radioactive Waste Disposal Signature: Relationship to Patient: Clinician/Hospital Dispatcher Radioactive Waste Disposal Signature: Date: documented in this encounter Plan of Treatment Not on file documented as of this encounter Visit Diagnoses Not on filedocumented in this encounter Care Teams Building Mechanic Relationship Specialty Start Date End Date Avel Traore MD [address] [place] [address] PCP - General General Internal Medicine 09/21/24 documented as of this encounter
--- OUTSIDE RECORDS SUMMARY | 2025-06-19 08:33 | XMS_ITS | Encounter Summary ---
Author Organization [employer] ([place], [place], [place], [place]) Address [address] [place] [address] Care Team Providers Care Riding Double Name Role Phone Avel Traore MD Primary Care Provider [phone] Encounter Details Date Type Department Care Team (Late st Contact Info) Description 06/13/2019 Transcribed Document [facility] [place] [facility] [place] [address] ProviderPhil MD [address] [place] [address] Social History Tobacco Use Types Packs/Day Years Used Date Smoking Tobacco: Never Assessed Sex and Gender Information Value Date Recorded Sex Assigned at Not on file Legal Sex Male 1:29 PM CDT Gender Identity Not on file Sexual Orientation Not on file documented as of this encounter Miscellaneous Notes * Cerner Conversion Note - Phil Singh MD - 06/13/2019 4:25 PM CDT Event Note Entered On: 06/13/2019 16:26 EDT Performed On: 06/13/2019 16:25 EDT by Alessandro Hernandez RN Event Note Event Date/Time : 06/13/2019 16:25 EDT Description of Event : I have reviewed and agree with charting completed by Aleta Shepherd, clinical nursing professor director religious education. Alessandro Hernandez RN - 06/13/2019 16:25 EDT documented in this encounter Plan of Treatment Not on file documented as of this encounter Visit Diagnoses Not on filedocumented in this encounter Care Teams Riding Double Relationship Specialty Start Date End Date Avel Traore MD [address] [place] [address] PCP - General General Internal Medicine 09/21/24 documented as of this encounter
--- OUTSIDE RECORDS SUMMARY | 2025-06-19 08:33 | XMS_ITS | Clinical Summary ---
Author Organization [employer] ([place], [place], [place], [place]) Address [address] [place] [address] Care Team Providers Care Wharf Builder Name Role Phone Avel Traore MD Primary Care Provider [phone] Allergies Active Allergy Reactions Criticality Noted Date Comments Betamethasone Other (See Comments) High 01/12/2024 Flu symptoms Levofloxacin Other (See Comments) High 05/28/2016 Other reaction(s): couldn't move, severe reaction Sweats, all over flu like feeling, like to Medications levothyroxine (SYNTHROID, LEVOTHROID) 88 MCG tablet Take 1 tablet (88 mcg total) by mouth daily. Active metoprolol succinate (TOPROL-XL) 25 MG 24 hr tablet Take 1 tablet (25 mg total) by mouth daily. 11/12/2023 Active fLUoxetine (PROzac) 10 MG capsule Take 1 capsule (10 mg total) by mouth daily. 11/03/2023 Active cyanocobalamin (vitamin B-12) 1000 MCG tablet Take 2.5 tablets (2,500 mcg total) by mouth. Active glucosamine-cho ndroitin (Osteo Bi-Flex) 250-200 mg Tab Take 1 tablet by mouth 2 (two) times daily. Active Active Problems Problem Noted Date Diagnosed Date Beta-thalassemia 09/21/2024 Hypertension 09/21/2024 Sleep apnea 09/21/2024 Thyroid disease 09/21/2024 Pacemaker 09/21/2024 Overview (09/21/2024): [facility] History of renal dialysis 09/21/2024 ESRD (end stage renal disease) 09/21/2024 Dialysis patient 09/21/2024 Atrial fibrillation 09/21/2024 Family History Medical History Relation Name Comments Heart attack Father Kidney disease Mother Relation Name Status Comments Father Mother Social History Tobacco Use Types Packs/Day Years Used Date Smoking Tobacco: Former Cigarettes 1 8 1 5 - 1972 Passive Smoke Exposure: Past Smokeless Tobacco: Never Tobacco Cessation:Counseling Given: Not Answered Alcohol Use Standard Drinks/Week Comments Never 0 (1 standard drink = 0.6 oz pur e alcohol) Food Insecurity Answer Date Recorded Food run out past 12 months Not on file 11/29 Food did not last past 12 months Not on file 12/17/2023 Employment Answer Date Recorded Help finding and keeping a job Not on file 0 12/17/2023 Family and Community Support Answer Enrrique e Recorded Help with Day to Day Activities Not on file 12/17/2023 Feeling Lonely or Isolated Not on file 12/17 Educational Attainment Answer Date Hua rded Speak language other than Armenian at home Not on file 12/17/2023 Want help with school or training Not on file 12/17/2023 Substance Use Answer Date Recorded Used prescription meds for non-medical reasons N ot on file 12/17/2023 Used illegal drugs past 12 months Not on file 12/17/2023 Sex and Gender Information Value Date Recorded Sex Assigned at Not on file Legal Sex Male 1:29 PM CDT Gender Identity Not on file Sexual Orientation Not on file Last Filed Vital Signs Vital Sign Reading Time Taken Comments Blood Pressure 171/80 09/21/2024 8:55 AM EDT Pulse 64 09/21/2024 8:55 AM EDT Temperature 36.7 C (98 F) 09/21/2024 8:55 AM EDT Respiratory Rate 16 09/21/2024 8:55 AM EDT Oxygen Saturation 94% 09/21/2024 8:55 AM EDT room air Inhaled Oxygen Concentration - - Weight 79.4 kg (175 lb) 01/24/2024 10:32 AM EST Height 170.2 cm (5' 7 ) 01/24/2024 10:32 AM EST Body Mass Index 27.41 01/24/2024 10:32 AM EST Plan of Treatment Health Maintenance Due Date Last Done Comments CT Colonography 1950 Colonoscopy 1950 Colorectal Cancer Screening 1950 FOBT/FIT 1950 Fit-DNA (Cologuard) 1950 Sigmoidoscopy 1950 Depression Screening (12+) 1962 Hepatitis C Screening 02/06/1968 Shingles Vaccine (Zoster) (1 of 2) 02/06/2000 Medicare Initial AWV G0438 02/28/2011 Abdominal Aortic Aneurysm (A AA) Screen 2015 COVID-19 VACCINE ( - 2023-2 5 season) 2024 10/06/2021, 02/21/2021, 01/21/2021, Additional history exists Falls Risk Screening 11/29/2024 Respiratory Syncytial Virus (RSV) Adult or (1 - 1-dose 75+ series) 2025 Influenza Vaccine (#1) 2025 2, 10/14/2021, 09/12/2021, Additional history exists Tobacco Cessation Counseling and Screening (12+) 09/21/2025 09/21/2024 DTAP/TDAP/TD VACCINES (2 - T d or Tdap) 03/15/2027 03/15/2017 Pneumococcal 50+ years Completed 2, 10/14/2021, 09/18/2021 [place] [address] MEDICARE PART A B [employer] SR SUPP Care Teams Wharf Builder Relationship Specialty Start Date End Date Avel Traore MD [address] [place] [address] [place] [address] PCP - General General Internal Medicine 09/21/24
--- OUTSIDE RECORDS SUMMARY | 2025-06-19 08:33 | XMS_ITS | Referral Summary ---
Author Organization [employer] ([place], [place], [place], [place]) Address [address] [place] [address] Care Team Providers Care Custodial Manager Name Role Phone Avel Traore MD Primary Care Provider [phone] Allergies Active Allergy Reactions Criticality Noted Date [...] 09/21/2024 Dialysis patient 09/21/2024 Atrial fibrillation 09/21/2024 Social History Tobacco Use Types Packs/Day Years Used Date Smoking Tobacco: Former Cigarettes 1 8 1 1972 Passive Smoke Exposure: Past Smokeless Tobacco: [...] Date Hua rded Speak language other than Azerbaijani at home Not on file 12/17/2023 Want [...] 01/24/2024 10:32 AM EST Plan of Treatment Not on file Insurance MEDICARE PART A B SUPP Care Teams Custodial Manager Relationship Specialty Start Date End Date Avel Traore MD [address] [place] [address] [place] [address] PCP - General General Internal Medicine 09/21/24
--- OUTSIDE RECORDS SUMMARY | 2025-06-19 08:33 | XMS_ITS | Encounter Summary ---
Author Organization [employer] ([place], [place], [place], [place]) Address [address] [place] [address] Care Team Providers Care Documentation Nurse Name Role Phone Avel Traore MD Primary Care Provider [phone] Encounter Details Date Type Department Care Team (Late st Contact Info) Description 06/14/2019 Transcribed Document [facility] [place] Family [place] [facility] [place] [address] ProviderPhil MD [facility] [place] [address] Social History Tobacco Use Types Packs/Day Years Used Date Smoking Tobacco: Never Assessed Sex and Gender Information Value Date Recorded Sex Assigned at Not on file Legal Sex Male 1:29 PM CDT Gender Identity Not on file Sexual Orientation Not on file documented as of this encounter Miscellaneous Notes * Cerner Conversion Note - Phil Singh MD - 06/14/2019 3:34 PM CDT Initial Discharge Planning Entered On: 06/14/2019 15:38 EDT Performed On: 06/14/2019 15:34 EDT by SOLOMON CASILLAS, RN-Care Management Initial Assessment I Previously Documented Living Environment : No qualifying data available. Living Situation : Other: w/spouse Patient Lives With : Spouse Is the Patient a Caregiver at Home? : No Emergency Contact #1 : Neetu Sukhjinder Emergency Contact #1 . Emergency Contact #1 Relationship : spouse Emergency Contact #2 : . Emergency Contact #2 Phone Number : . Emergency Contact #2 Relationship : . Enter Doctors Name : Dr Nicholas Torres Does Patient have PCP Listed? : Yes Is Guardianship Needed : No SOLOMON CASILLAS RN-Care Management - 06/14/2019 15:34 EDT Initial Assessment II Sensory and Motor Deficits : None Current Home Treatments and Equipment : None SOLOMON CASILLAS RN-Care Management - 06/14/2019 15:34 EDT Discharge Needs I Anticipated Discharge Date : 06/15/2019 EDT Anticipated Discharge To, CM : Other: home/self care Current Home Treatment/Equipment : Current Home Treatment/Equipment No qualifying data available. Post Acute/Home Treatments : None SOLOMON CASILLAS RN-Care Management - 06/14/2019 15:34 EDT Discharge Needs II Professional Skilled Services : Professional Skilled Services No qualifying data available. Needs Assistance with Transportation : No Discharge Options Discussed with Patient : DME, Home Health, Short term rehabilitation SOLOMON CASILLAS RN-Care Management - 06/14/2019 15:34 EDT Narrative Note Narrative Note : Interviewed pt, reports indep w/transportation/adl's, lives w/spouse. Denies DME/HH/SNF hx. No needs noted for CM to address prior to d/c home. CM to cont following pt SOLOMON CASILLAS RN-Care Management - 06/14/2019 15:34 EDT documented in this encounter Plan of Treatment Not on file documented as of this encounter Visit Diagnoses Not on filedocumented in this encounter Care Teams Documentation Nurse Relationship Specialty Start Date End Date Avel Traore MD [address] [place] [address] PCP - General General Internal Medicine 09/21/24 documented as of this encounter
--- OUTSIDE RECORDS SUMMARY | 2025-06-19 08:33 | XMS_ITS | Encounter Summary ---
Author Organization [employer] ([place], [place], [place], [place]) Address [address] [place] [address] Care Team Providers Care Accounting Intern Name Role Phone Avel Traore MD Primary Care Provider Encounter Details Date Type Department Care Team (Late st Contact Info) Description 2022 Transcribed Document [facility] [place] Family Medicine [address] [place] [address] ProviderPhil MD [address] [place] [address] Social History Tobacco Use Types Packs/Day Years Used Date Smoking Tobacco: Never Assessed Food Insecurity Answer Date Recorded Food run [...] Date Hua rded Speak language other than Macanese at home Not on file 12/17/2023 Want [...] Notes * Cerner Conversion Note - Phil ProviderMD - 2022 6:35 AM ANNEALER HELPER Patient: [facility]: [id number] Age: 72 years Sex: Male : 1950 Associated Diagnoses: None Author: COMER, BRAEDEN Peña APRN Chief Complaint pleasant 72 yo male here with his for R brachiocephalic AV transposition with Dr. Mcdonald. pt has been on HD since september, using R sanam cath, needs permanent access. RUE has been having edema and paresthesia since initial surgery. Review of Systems Constitutional: obese. Eye: Negative. Ear/Nose/Mouth/Throat: Negative. Respiratory: Negative. Cardiovascular: Peripheral edema, L pacemaker, a fib. Gastrointestinal: Negative. Genitourinary: Negative. Hematology/Lymphatics: RUE edema. Endocrine: Negative. Immunologic: Negative. Musculoskeletal: RUE weakness. Integumentary: Negative. Neurologic: Numbness, RUE. Psychiatric: Negative. All other systems are negative Health Status Allergies: Allergic Reactions (Selected) Severity Not Documented LevoFLOXacin- Couldn't move, severe reaction., Allergies (1) Active Reaction levoFLOXacin couldn't move, severe reaction Current medications: (Selected) Inpatient Medications Ordered Ancef: 2 Gram, 50 mL, 100 mL/Hr, IV Piggyback, PREOP Normal Saline 500 mL: 20 mL/Hr, IntraVENous famotidine: 20 mg, Oral, 1-Time Documented Medications Documented Eliquis 2.5 mg oral tablet: 1 Tab, Oral, [id number], 0 Refill(s) FLUoxetine 20 mg oral capsule: 1 Cap, Oral, Daily, 60 Cap, 0 Refill(s) Metoprolol Succinate ER 25 mg oral tablet, extended release: 1 Tab, Oral, Daily, 0 Refill(s) Osteo Bi-Flex: 2 Tab, Oral, Daily, 0 Refill(s) Vitamin B12: 2,500 mcg, Oral, Daily, 0 Refill(s) amLODIPine 5 mg oral tablet: 1 Tab, Oral, Daily, Hold if Systolic Blood Pressure (top number) is less than 140, 0 Refill(s) levothyroxine 88 mcg (0.088 mg) oral tablet: 1 Tab, Oral, Daily, 60 Tab, 0 Refill(s), Home Medications (7) Active amLODIPine 5 mg oral tablet 5 mg = 1 Tab, Oral, Daily Eliquis 2.5 mg oral tablet 2.5 mg = 1 Tab, Oral, [id number] FLUoxetine 20 mg oral capsule 20 mg = 1 Cap, Oral, Daily levothyroxine 88 mcg (0.088 mg) oral tablet 88 mcg = 1 Tab, Oral, Daily Metoprolol Succinate ER 25 mg oral tablet, extended release 25 mg = 1 Tab, Oral, Daily Osteo Bi-Flex 2 Tab, Oral, Daily Vitamin B12 2,500 mcg, Oral, Daily , Medications (3) Active Scheduled: (2) ceFAZolin/D5w 2 Gram 50 mL, IV Piggyback, PREOP famotidine 20 mg tab 20 mg 1 Tab, Oral, 1-Time Continuous: (1) NaCl 0.9% 500 mL 500 mL, IntraVENous, 20 mL/Hr PRN: (0) Problem list: All Problems Sleep apnea / SNOMED CT 351205634 / Confirmed Hypothyroid / SNOMED CT 42767168 / Confirmed Hyperlipidemia / SNOMED CT 45713942 / Confirmed HTN - Hypertension / SNOMED CT 8180858503 / Confirmed H/O syncope / SNOMED CT 0819304791 / Confirmed History of obstructive sleep apnea / IMO 70437886 / Confirmed High blood pressure / SNOMED CT 58198659 / Confirmed ESRD on hemodialysis MWF / SNOMED CT 2199942942 / Confirmed CHF (congestive heart failure) / SNOMED CT 73489106 / Confirmed Chronic kidney disease (CKD) / SNOMED CT 0416529634 / Confirmed Beta thalassemia / SNOMED CT 067268925 / Confirmed Atrial fibrillation / SNOMED CT 99398428 / Confirmed, Active Problems (12) Atrial fibrillation Beta thalassemia CHF (congestive heart failure) ESRD on hemodialysis MWF H/O syncope History of obstructive sleep apnea HTN - Hypertension Hyperlipidemia Hypothyroid Histories Past Medical History: Active HTN - Hypertension ([id number]) Family History: Entire family history is negative. Procedure history: AVF right arm on 12/18/2021 at 71 Years. eyelid surgery bilateral. sinus polyps. throat surgery for sleep apnea. left rotator cuff repair. Vasectomy (58800276). dialysis catheter placement. Physical Examination VS/Measurements Vital Signs/Vital Measures 2022 7:11 EST Systolic Blood Pressure 154 mmHg HI Diastolic Blood Pressure 62 mmHg Temperature Source Temporal artery scanning Temperature Mode Fahrenheit Temperature, Fahrenheit 97 Deg F Heart Rate Monitored 76 bpm Respiratory Rate 18 Breaths/Min Oxygen Saturation 97 % Oxygen Therapy Mode Room air , Vitals Signs (last 24 hrs) Last Charted Minimum Maximum Temp 97 (FEB 05:) 97 (FEB 05:) 97 (FEB 05) Mon HR 76 (FEB 05) 76 (FEB 05) 76 (FEB 05) Resp Rate 18 (FEB 05) 18 (FEB 05) 18 (FEB 05) SBP H 154 (FEB 05) H 154 (FEB 05) H 154 (FEB 05) DBP 62 (FEB 05) 62 (FEB 05:) 62 (FEB 05) SpO2 97 (FEB 05) 97 (FEB 05) 97 (FEB 05) , Measurements from flowsheet : Measurements 2022 7:36 EST Height Source Measured Height Entry Format [place] Height/Length, [place] (ft) 5 ft Height/Length [place] 6 Inch CLINICALHEIGHT 167.64 cm [place] Body Weight 63 kg Weight Source Standing scale Weight Entry Format [place] Weight [place] lb 187 lb CLINICALWEIGHT 85 kg Body Surface Area (BSA) 1.95 m2 Body Mass Index 30.2 kg/m2 HI General: Alert and oriented, No acute distress, obese. Eye: Extraocular movements are intact. HENT: Normocephalic, Normal hearing. Respiratory: Lungs are clear to auscultation, Respirations are non-labored, R sanam cath. Cardiovascular: Normal rate, No murmur, No gallop, L pacemaker, irregularly irregular rhythm, RUE edema. Musculoskeletal: Normal range of motion, RUE weakness/paresthesia. Integumentary: Warm, Dry, Two [place]. Neurologic: Alert, Oriented. Psychiatric: Cooperative, Appropriate mood & affect. Review / Management Results review: No qualifying data available. Impression and Plan Diagnosis 1. ESRD on HD 2. BERNARDO 3. A fib 4. beta thalassemia 5. CHF 6. HTN 7. HLD 8. hypothyroidism 9. syncope. Condition: Stable. pt to proceed with surgery, DC home today Electronically signed by Yaneth, [facility] Conversion Sedimentationist Cerner at 03/17/2023 9:12 PM CDT documented in this encounter Plan of Treatment Not on file documented as of this encounter Visit Diagnoses Not on filedocumented in this encounter Care Teams Accounting Intern Relationship Specialty Start Date End Date Avel Traore MD [address] [place] [address] PCP - General General Internal Medicine 09/21/24 documented as of this encounter
--- OUTSIDE RECORDS SUMMARY | 2025-06-19 08:33 | XMS_ITS | Data Portability ---
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 Plan of Treatment Reminders Order Date Submit Date Provider Last Modified By Organization Details Last Modified Time Details Appointments None recorded. Lab H pylori urea breath test, co2 infrared 2024 025 [facility] (Lab Registration) , [address] [place] [address] [place], [address], 5 18:11:16 hepatic function panel, serum 2024 025 [facility] (Lab Registration) , [address] [place] [address] [place], [address], 5 16:55:36 Referral general surgeon referral 2024 025 justin Torres DO, [address] [place] [address] [place], [address], 5 08:19:00 Procedures None recorded. Surgeries None recorded. Imaging None recorded. Medication Orders None recorded. Patient TargetsNo targets recorded. Patient InstructionsNo instructions recorded. Reason for Referral General Surgeon Referral for Gallstone Referring Physician: Emy Glez Gastroenter[facility], Encounter Date: 02/14/2025 Results Created Date Observation Date Name Description Value Unit Range Abnormal Flag Note LastModifiedBy Organization Detail LastModifiedTime 02/15/20 25 02/14/2025 HEPAT IC FUNCT ION PANEL total protein 6.2 g/dL 6.4-8. 2 low Not Available [facility] (Lab Registration) [address] [place], [address], 02/14/2025 16:55:36 02/15/20 25 02/14/2025 HEPAT IC FUNCT ION PANEL albumin 3.1 g/dL 3.4-5. 0 low Not Available [facility] (Lab Registration) [address] [place], [address], 02/14/2025 16:55:36 02/15/20 25 02/14/2025 HEPAT IC FUNCT ION PANEL bilirubin direct 1.1 mg/dL 0.0-0. 3 high Not Available [facility] (Lab Registration) [address] [place], [address], 02/14/2025 16:55:36 02/15/20 25 02/14/2025 HEPAT IC FUNCT ION PANEL bilirubin total 2.0 mg/dL 0.4-1. 5 high Not Available [facility] (Lab Registration) [address] [place], [address], 02/14/2025 16:55:36 02/15/20 25 02/14/2025 HEPAT IC FUNCT ION PANEL AST (SGOT) 21 U/L 15-37 Not Available [facility] (Lab Registration) [address] [place], [address], 02/14/2025 16:55:36 02/15/20 25 02/14/2025 HEPAT IC FUNCT ION PANEL ALT (SGPT) 17 U/L 12-78 Not Available [facility] (Lab Registration) [address] [place], [address], 02/14/2025 16:55:36 02/15/20 25 02/14/2025 HEPAT IC FUNCT ION PANEL alk phosphatase 100 U/L Not Available [facility] (Lab Registration) [address] [place], [address], 02/14/2025 16:55:36 02/15/20 25 02/14/2025 HEPAT IC FUNCT ION PANEL note Unles s other carroll noted testi ng perfo rmed at: [facility] [address] [place] [phone] Erick vásquez MD CLIA: [id number] Not Available [facility] (Lab Registration) [address] [place], [address], 02/14/2025 16:55:36 02/15/20 25 02/14/2025 H. PYLOR I BREAT H TEST note Unles s other carroll noted testi ng [facility] [address] [place] [address] [phone] Erick vásquez MD CLIA: [id number] Not Available [facility] (Lab Registration) [address] [place], [address], 02/16/2025 18:11:16 02/15/20 25 02/16/2025 H. PYLOR I BREAT H TEST H pylori breath test NEGATI VE negati ve Perfo rmed at: [address] [address] Lab Direc tor: Ramesh stone PhD, Phone : [phone] Not Available [facility] (Lab Registration) [address] [place], [address], 02/16/2025 18:11:16 Result Notes None recorded. Problems Name Problem SNOMED Code Status Onset Date Resolution Date Notes Provider Name and Address Organization Details Recorded Time Hyperbilirubin emia 20866617 Active 2024 Emy Glez NP [address], [address], [place], [address] [place] [address] & [place] 15:41:44 Gallstone 230954990 Active 2024 Emy Glez NP [address], [address], [place], [address], [place] [facility] & [place] 5 15:41:57 Abdominal bloating 897279325 Active 2024 Emy Glez NP [address], [address], [place], [address], [place] [facility] & [place] 5 15:42:29 Problem Notes None recorded. Procedures Surgical History Date Name Laterality Status Provider Name and Address Organization Details Recorded Time 5 operative procedure on shoulder completed Nara Elio [place] - [facility] - [place] & [place] 02/14/2025 14:31:23 2 Pacemaker/Defib rillator completed Nara Elio [place] - [facility] - [place] & [place] 02/14/2025 14:30:10 3 Colonoscopy completed Nara Sharples [place] - [facility] - [place] & [place] 02/14/2025 14:26:19 7 Sinus Surgery completed Nara Elio [place] [facility] - [place] & [place] 02/14/2025 14:26:19 7 procedure on eyelid completed Nara Sharples [place] [facility] & [place] 02/14/2025 14:31:47 Imaging Results None recorded. Procedure Notes None recorded. Medical Equipment None Reported. Allergies Allergen ID Allergen Name Allergen Category Reaction Reaction Severity Criticality Documentation Date Start Date Code Code System Note Provider Name and Address Organization Details Recorded Time 96142 levofloxa [facility]on medicatio n arthralgi a (joint pain) chest pain confusion dizziness lighthead edness nausea severe severe severe severe severe severe Not available 12/16/2022 81829 RxNorm Other react ions and sever ities : 'Vomi ting - Moder ate'. Nara Elio null, [place] - [facility] - [place] & [place] 5 14:26:07 Medications Name Sig Start Date Stop Date Status Note LastModified by Organization Details LastModified Time Prescriptio n - Renewal 12/16 completed Not Available Not Available Not Available medihoney wound gel APPLY A SMALL AMOUNT TO SKIN ONCE DAILY 02/14 completed Not Available Not Available Not Available prednisone 10 mg tablet TAKE 2 TABLETS BY MOUTH ONCE DAILY FOR 5 DAYS 02/14 completed Not Available Not Available Not Available cetirizine 10 mg tablet TAKE 1/2 (ONE-HALF ) TABLET BY MOUTH ONCE DAILY 02/14 completed Not Available Not Available Not Available azithromyci n 250 mg tablet TAKE 2 TABLETS BY MOUTH ON DAY 1, AND THEN TAKE 1 TABLET BY MOUTH ONCE A DAY ON DAY 2 THROUGH DAY 5 02/14 completed Not Available Not Available Not Available metoprolol succinate ER 50 mg tablet,exte nded release 24 hr 12/16 completed Not Available Not Available Not Available isosorbide mononitrate ER 30 mg tablet,exte nded release 24 hr TAKE 1 TABLET BY MOUTH ONCE DAILY 02/14 completed Not Available Not Available Not Available amlodipine 5 mg tablet 02/14 completed Not Available Not Available Not Available triamcinolo ne acetonide 0.1 % topical cream APPLY CREAM EXTERNALL Y TO AFFECTED AREA TWICE DAILY active Not Available Not Available No t Available isosorbide mononitrate ER 60 mg tablet,exte nded release 24 hr TAKE 1 TABLET BY MOUTH ONCE DAILY active Not Available Not Available No t Available levothyroxi ne 88 mcg tablet denied- active Not Available Not Available Not Available amoxicillin 875 mg tablet TAKE 1 TABLET BY MOUTH TWICE DAILY 02/14 completed Not Available Not Available Not Available linezolid 600 mg tablet TAKE 1 TABLET BY MOUTH TWICE DAILY 12/16 completed Not Available Not Available Not Available amlodipine 10 mg tablet TAKE 1/2 (ONE-HALF ) TABLET BY MOUTH ONCE DAILY 12/16 completed Not Available Not Available Not Available fluoxetine 10 mg capsule active Not Available Not Available Not Available gabapentin 100 mg capsule TAKE 1 CAPSULE BY MOUTH THREE TIMES DAILY 02/14 completed Not Available Not Available Not Available metoprolol succinate ER 25 mg tablet,exte nded release 24 hr 02/14 completed Not Available Not Available Not Available cefdinir 300 mg capsule TAKE 1 CAPSULE BY MOUTH ONCE DAILY. 02/14 completed Not Available Not Available Not Available fluoxetine 20 mg capsule 12/16 completed Not Available Not Available Not Available fluticasone propionate 50 mcg/actuati on nasal spray,suspe nsion 02/14 completed Not Available Not Available Not Available doxycycline hyclate 100 mg tablet TAKE 1 TABLET BY MOUTH TWICE DAILY 12/16 completed Not Available Not Available Not Available oxycodone 5 mg tablet TAKE 1 TABLET BY MOUTH 4 TIMES DAILY 12/16 completed Not Available Not Available Not Available Joya-Alka 0.8 mg tablet TAKE 1 TABLET BY MOUTH ONCE DAILY active Not Available Not Available No t Available sevelamer carbonate 800 mg tablet Take 1 tablet 3 times a day by oral route. active Not Available Not Available No t Available Osteo Bi-Flex active Not Available Not Available Not Available Eliquis 2.5 mg tablet 12/16 completed Not Available Not Available Not Available metoprolol succinate ER 50 mg capsule sprinkle, ext. release 24 hr Take 1 capsule every day by oral route. active Not Available Not Available No t Available Vitals Date Recorded Body height Body mass index (BMI) Body weight Body temperature Heart rate Systolic And Diastolic Provider Name and Address Organization Details Last Updated DateTime 3 167.64 cm 26.5 kg/m2 18609.1 5 g 97.3 [degF] 105 /min 103/67 mm[Hg] Kati Herrera [facility] & [place] 3 10:56:43 Date Recorded Body height Body mass index (BMI) Body weight Body temperature Oxygen saturation Oxygen saturation in Arterial blood by Pulse oximetry Heart rate Provider Name and Address Organization Details Last Updated DateTime 5 165.1 cm 26.7 kg/m2 94217.2 2 g 98.1 [degF] 97 % 97 % 67 /min Nara Sharples [facility] & [place] 5 14:36:14 Date Recorded Body height Body mass index (BMI) Body weight Heart rate Oxygen saturation Oxygen saturation in Arterial blood by Pulse oximetry Body temperature Systolic And Diastolic Provider Name and Address Organization Details Last Updated DateTime 5 165.1 cm 26.9 kg/m2 07197.5 3 g 79 /min 97 % 97 % 98.1 [degF] 130/60 mm[Hg] Chioma Hernandez [facility] & [place] 5 11:43:01 Social History Question Answer Notes LastModified by Organizat ion Details LastModified Time Tobacco Smoking Status Never Smoker Kati Herrera [facility], [facility] & [place] 12/16/2022 11:00:56 Do You Have An Advance Directive? No Information not available 02/14/2025 Are You Blind Or Do You Have Difficulty Seeing? No Information not available 02/14/2025 Are You Passively Exposed To Smoke? No Information not available 02/14/2025 Sex: Unknown Functional Status Question Answer Note LastModified by Organizat ion Details LastModified Time Do you use any illicit or recreational drugs? No Information not available 02/14/2025 What is your level of alcohol consumption? None Information not available 02/14/2025 What is your exercise level? None Information not available 02/14/2025 Mental Status Question Answer Note LastModified by Organization D etails LastModified Time Do you feel stressed (tense, restless, nervous, or anxious, or unable to sleep at night)? [id number] Information not available 02/14/2025 Family History Relationship Description Onset Age of this Age Resolved Age Notes LastModified by Organization Details LastModified Time Mother Hypertensive disorder [email or web address] Not available 2024 14:29:20 Mother Heart disease ksnelling Not available 2024 14:29:41 Father Cerebrovascu lar accident ksnelling Not available 14:29:29 Father Heart disease ksnelling Not available 2024 14:29:41 Medical History Condition Response Coronary Artery Disease Y None N Gout Y Colon Cancer N Kidney Stones N Hyperthyroidism N Emphysema N Depression N COPD N Hypothyroidism N Glaucoma N Diverticulitis/Diverticulosis N Anesthesia Complications N Obstructive Sleep Apnea Y Anxiety Disorder N Arthritis N Hearing Loss N Acid Reflux (GERD) N Cancer N Stroke N Liver Disease N Headaches N Fibromyalgia N Speech Delay N Kidney Disease Y Allergies/Hayfever N Heart Problems N Heart Conditions N Migraines N Kidney or Bladder Problems Y Thyroid Problems N Developmental Delay N Osteoporosis/Osteopenia N Anemia Y Immune System Disorder N Colon Polyps N Heart Attack (AR) N Diabetes N Bleeding Disorder N Seizures/Epilepsy N Tuberculosis N Hyperlipidemia N Asthma N Sleep Apnea Y Sleep Disorder N GERD/Reflux N Hepatitis N Cirrhosis N Heart Disease Y Hypertension Y Past Encounters Encounter ID Performer Location Encounter Start Date Encounter Closed Date Diagnosis/Indication Diagnosis SNOMED-CT Code Diagnosis ICD10 Code Diagnosis Note [id number] Rekha Nguyen MD [facility] [address], [place] [address] 12/16/2022 10:45:56 12/16/2022 11:21:02 Sebaceous cyst of skin 668977150 L72.3 Advised patient this is not malignant. Explained if this is not bothering him, we should not remove it. Should it become infected or start to bother him we can discuss removal. Encouraged him to keep the area clean. Will see him back as needed. [id number] Emy Glez NP [facility] [address] [facility],[place] [address] 02/14/2025 14:16:37 02/14/2025 15:59:43 Hyperbilirubinemia 80344273 E80.6 Labs from 11/2024 with total bilirubin 2.1, indirect bilirubin 1.18, direct bilirubin 0.92. Normal appearance of liver and CBD on ultrasound 01/04/25. Denies jaundice or family history of liver disease. Recommend follow up hepatic function panel today. Gallstone [id number] K80. 20 Cholelithi asis with borderline gallbladde r wall thickening measuring 3 mm on liver ultrasound 01/04/2025 . Given findings of cholelithi asis as well as elevated bilirubin recommend evaluation by General surgery. Abdominal bloating 62868 9008 R14.0 Two month history generalize d abdominal bloating and gas. Recommend H. pylori breath test today. Possibly secondary to medication s for ESRD. [id number] DO Rebeca DING [facility] [place] [facility] [address] [facility], [place] [address] 02/21/2025 11:38:46 02/21/2025 13:49:58 Biliary calculus 388664614 K80.20 - patient has signs and symptoms likely asymptomat ic cholelithi asis- patient's flatulence is not likely related to his underlying cholelithi asis- patient does have end-stage renal disease with certain medication s for electrolyt e management which can cause GI upset- patient's case was discussed with GI with recommenda jameson for observatio n for what is likely asymptomat ic cholelithi asis at this time- patient verbalized understand ing and agreement of plan Health Concerns Section Related Observation LastModified by Organization Detai ls LastModified Time None Recorded Concern Status LastModified by Organization Details LastModified Time None Recorded Advance Directives Directive N: Payers Insurance Date Sequence Insurance Name Policy Number Policy Benavides Covered Member ID Benavides Member ID Guarantor Name 02/14/2025 1 [place]MEDICARE[place] Dallas Slaughter [id number] Dallas Slaughter 02/18/2025 2 [employer] [place] INSURANCE [employer] (MEDICARE SUPPLEMENT) Dallas Slaughter [id number] Dallas Slaughter Notes Date Note Type Note Provider Name and Address Organization Details Recorded Time 12/16/2022 text/html 72yo male in the office today to discuss a growth on the back of his head. States it has only been present for a couple of months. It was larger at one time when he saw his PCP. It has gone down significantly since then. Denies any drainage. Rekha Nguyen MD [address] [facility], [place], [address], [facility] & [place] 12/25/2022 15:00:01 02/14/2025 text/html 75-year-old male with a past medical history CHF, atrial fibrillation, cardiac pacemaker, ESRD on HD, hypothyroidism. Patient presents today for evaluation of hyperbilirubinemia. Labs from 11/2024 with total bilirubin 2.1, indirect bilirubin 1.18, direct bilirubin 0.92. liver ultrasound 01/04/2025 with normal appearance of liver and common bile duct. Cholelithiasis was noted as well as borderline gallbladder wall thickening measuring 3 mm. He does report generalized abdominal bloating and gas over the past 2 months. Reports daily bowel movements. denies nausea, vomiting, jaundice. Emy Glez NP [address] [place] [address], [address], [place], [address], [facility] & [place] 03/30/2025 11:43:31 02/21/2025 text/html 75-year-old male presents for evaluation for abdominal bloating, significant fluctuance, and occasional diarrhea. Patient also has elevated liver enzymes for which he underwent a liver ultrasound which revealed cholelithiasis. Patient denies fatty food digestive issues including epigastric/right upper quadrant abdominal pain, nausea, vomiting. patient states his largest issue is significant fluctuance. DARRYL TORRES, [address], [address], [place], [address], [place] - [facility] - [place] & [place] 02/22/2025 20:53:20
--- OUTSIDE RECORDS SUMMARY | 2025-06-19 08:33 | XMS_ITS | Encounter Summary ---
Author Organization [employer] ([place], [place], [place], [place]) Address [address] [place] [address] Care Team Providers Care Production Support Engineer Name Role Phone Avel Traore MD Primary Care Provider [phone] Encounter Details Date Type Department Care Team (Late st Contact Info) Description 06/13/2019 Transcribed Document [facility] [place] [facility] [place] [address] ProviderPhil MD [facility] [place] [address] Social History Tobacco Use Types Packs/Day Years Used Date Smoking Tobacco: Never Assessed Sex and Gender Information Value Date Recorded Sex Assigned at Not on file Legal Sex Male 1:29 PM CDT Gender Identity Not on file Sexual Orientation Not on file documented as of this encounter Miscellaneous Notes * Cerner Conversion Note - Phil Singh MD - 06/13/2019 2:03 PM CDT Admission History, Adult Entered On: 06/13/2019 14:05 EDT Performed On: 06/13/2019 14:03 EDT by Alessandro Hernandez RN Advance Directive Patient has Advance Directive *Q : No, patient refuses Advance Directive information Alessandro Hernandez RN - 06/13/2019 14:03 EDT Anesthesia/Transfusion History Family History of Anesthesia Reaction : No prior transfusion(s) Blood Transfusion Acceptable to Patient : Yes Transfusion History : Prior anesthesia reaction Type of Anesthesia Reaction : Excessive nausea/vomiting Family History of Anesthesia Reaction : None Alessandro Hernandez RN - 06/13/2019 14:03 EDT Anticipated Discharge Needs Discharge To, Anticipated : Home Anticipated Discharge Needs at This Time : None Alessandro Hernandez RN - 06/13/2019 14:03 EDT Education Topics, Admission Orientation DCP GENERIC CODE Advance Directives : Verbalizes understanding Allergy Band Applied : Verbalizes understanding Assessment/Vital Signs : Verbalizes understanding Bed Control : Verbalizes understanding Call Light : Verbalizes understanding Confidentiality : Verbalizes understanding Diet/Room Service : Verbalizes understanding Fall Prevention : Verbalizes understanding Hand Hygiene : Verbalizes understanding Healthcare Provider Visit : Verbalizes understanding ID Band Applied : Verbalizes understanding Isolation Precautions : Verbalizes understanding Orientation to Room/Bathroom : Verbalizes understanding Patient Bill of Rights : Verbalizes understanding Patient Rights/Responsibilities : Verbalizes understanding Patient Safety : Verbalizes understanding Personal Privacy Code : Verbalizes understanding Rapid Response Initiated by Patient/Family : Verbalizes understanding Rounding : Verbalizes understanding Siderails use/risks : Verbalizes understanding Skin Precautions : Verbalizes understanding Smoking Policy : Verbalizes understanding Telemetry Monitoring : Verbalizes understanding Television/Phone : Verbalizes understanding Visiting Policy : Verbalizes understanding Alessandro Hernandez RN - 06/13/2019 14:03 EDT Functional Assessment Living Situation : Home Patient Lives With : Spouse Current Home Treatments : CPAP Alessandro Hernandez RN - 06/13/2019 14:03 EDT General Info Support Person/Pt Rep Name : Neetu Slaughter- Support Person/Pt Rep Contact Information : [phone] Want Family/Rep/Phys Notified of Admit : No Emergency Contact #1 : . Emergency Contact #1 Phone Number : . Emergency Contact #1 Relationship : . Emergency Contact #2 : . Emergency Contact #2 Phone Number : . Emergency Contact #2 Relationship : . Primary Language : Citizen [place] Communication Barrier : None Alessandro Hernandez RN - 06/13/2019 14:03 EDT Fall Risk Scales ABCs Fall Injury Risk Identification : Coagulation, Surgery ABC Fall Injury Risk : Moderate to high injury risk MIR Hx Falls Immediate/Within 3 Months : No Mir Secondary Diagnosis : Yes MIR Use of Ambulatory Aid : Bed rest/Nurse assist MIR IV Therapy or IV Access : Yes Mir Gait/Transferring : Normal, bedrest, immobile Mir Mental Status : Oriented to own ability Mir Fall Risk Score : 35 MIR Fall Scale Risk Level : 25-45 Medium Risk [place] Fall Interventions : Adequate lighting, Bed in low position, Call device within reach, Fall prevention handout/education per facility policy, Frequent orientation to call device, Frequent orientation to surroundings, Hourly comfort/safety rounds, Non-slip footwear, Personal items within reach, Reinforced to call for assistance before getting out of bed, Room free of clutter/spills, Wheels locked, Wires/Cords secured Barriers to Learning : None evident Alessandro Hernandez RN - 06/13/2019 14:03 EDT Health Histories Smoking Status : Never (less than 100 in lifetime; none in last 30 days) Smokeless Tobacco Status : Never Alessandro Hernandez RN - 06/13/2019 14:03 EDT Social History (As Of: 06/13/2019 14:05:04 EDT) Tobacco: Never (less than 100 in [...] Source : Stated Height Entry Format : [place] Height, Feet : 5 ft(Converted to: 152 cm, 60 Inch) Height, Inches : 7 Inch(Converted to: 0 ft 7 Inch, 17.78 cm) Clinical Height : 170.18 cm Weight Source : Standing scale Weight Entry Format : [place] Clinical Dosing Weight : 85 kg Weight, Pounds : 187 lb Body Surface Area (BSA) : 1.97 m2 Body Mass Index : 29.3 kg/m2 (HI) [place] Body Weight : 65 kg Alessandro Hernandez RN - 06/13/2019 14:03 EDT Infectious Disease History Infectious Disease History : Chicken pox/Shingles, Influenza Active Surveillance Screen Assessment : Patient does not meet any of above criteria Active Surveillance Screen Negative : Yes Isolation Needed : Standard Fever/Chills Last 48 Hours : No Travel To Reg[place] with Travel Advisories : No Travel Outside [place] Within Last 30 Days : No Contact With Traveler to Advisory Region : No Tuberculosis Symptoms : None Alessandro Hernandez RN - 06/13/2019 14:03 EDT Tetanus Immunization Status Previous Tetanus Immunizations : No qualifying data available. Tetanus Immunization : Unknown Alessandro Hernandez RN - 06/13/2019 14:03 EDT Influenza Vaccine Asmt, Adult Previous Vaccines from Immunization Schedule : No qualifying data available. Influenza Immunization, Current Season : Yes Alessandro Hernandez RN - 06/13/2019 14:03 EDT Pneumococcal Vaccine Previous Vaccines from Immunization Schedule : No qualifying data available. Pneumonia Immunization Received : Yes Alessandro Hernandez RN - 06/13/2019 14:03 EDT Nutrition History Feeding Ability : Independent Adaptive Feeding Equipment : None Adaptive Feeding Equipment : Regular Oral Medication Administration : By mouth Eating Poorly Due to Decreased Appetite : No Unplanned Weight Loss in Past 3-6 Months : No Malnutrition Screening Tool Total(mal) : 0 Malnutrition Screening Tool Risk Level : Patient not at risk Alessandro Hernandez RN - 06/13/2019 14:03 EDT Psychosocial History Does Someone Depend on You for Care? : No Do You Have a History of the Following? : Patient denies history Currently in Unsafe Situation : No Tried to Harm Yourself in the Past? : No Thoughts of Harming/Killing Yourself : No Alessandro Hernandez RN - 06/13/2019 14:03 EDT Sleep Apnea Risk Assmt BiPAP/CPAP Ordered for Home Use : Yes Hx of Obstructive Sleep Apnea Diagnosis : Yes BiPAP/CPAP Used at Home : Yes Age over 50 Years Old : Yes Gender Male : Yes Alessandro Hernandez RN - 06/13/2019 14:03 EDT Valuables and Belongings Valuables and Belongings : Clothing Clothing : Common streetwear Clothing Disposition : Bedside, With family Alessandro Hernandez RN - 06/13/2019 14:03 EDT documented in this encounter Plan of Treatment Not on file documented as of this encounter Visit Diagnoses Not on filedocumented in this encounter Care Teams Production Support Engineer Relationship Specialty Start Date End Date Avel Traore MD [address] [place] [address] [place] [address] PCP - General General Internal Medicine 09/21/24 documented as of this encounter
--- OUTSIDE RECORDS SUMMARY | 2025-06-19 08:33 | XMS_ITS | Encounter Summary ---
Author Organization [employer] ([place], [place], [place], [place]) Address [address] [place] [address] Care Team Providers Care Electromechanic Name Role Phone Avel Traore MD Primary Care Provider [phone] Encounter Details Date Type Department Care Team (Late st Contact Info) Description 06/13/2019 Transcribed Document [facility] [place] [facility] [place] [address] ProviderPhil MD [place] [address] Social History Tobacco Use Types Packs/Day Years Used Date Smoking Tobacco: Never Assessed Sex and Gender Information Value Date Recorded Sex Assigned at Not on file Legal Sex Male 1:29 PM CDT Gender Identity Not on file Sexual Orientation Not on file documented as of this encounter Miscellaneous Notes * Cerner Conversion Note - Phil Singh MD - 06/13/2019 6:46 AM CDT Pre Procedure Adult Entered On: 06/13/2019 6:50 EDT Performed On: 06/13/2019 6:46 EDT by DOMITILA VILLALTA RN Height and Weight, Clinical Dosing Height Source : Stated Height Entry Format : [place] Height, Feet : 5 ft(Converted to: 152 cm, 60 Inch) Height, Inches : 7 Inch(Converted to: 0 ft 7 Inch, 17.78 cm) Clinical Height : 170.18 cm Weight Source : Standing scale Weight Entry Format : [place] Clinical Dosing Weight : 85 kg Weight, Pounds : 187 lb Body Surface Area (BSA) : 1.97 m2 Body Mass Index : 29.3 kg/m2 (HI) [place] Body Weight : 65 kg DOMITILA VILLALTA RN - 06/13/2019 6:46 EDT Health Histories Smoking Status : Never (less than 100 in lifetime; none in last 30 days) Smokeless Tobacco Status : Never DOMITILA VLILALTA RN - 06/13/2019 6:46 EDT Social History (As Of: 06/13/2019 06:50:28 EDT) Tobacco: Never (less than 100 in lifetime) Smoking Status. (Last Updated: 06/13/2019 06:47:25 EDT by DOMITILA VILLALTA, RN) Alcohol: Alcohol Use History No. (Last Updated: 06/13/2019 06:47:30 EDT by DOMITILA VILLALTA, RN) Substance Abuse: Drug Use Hx: No. Use in Last 12 Months: No. (Last Updated: 06/13/2019 06:47:34 EDT by DOMITILA VILLALTA, RN) Infectious Disease History Infectious Disease History : Chicken pox/Shingles, Influenza Fever/Chills Last 48 Hours : No Travel To [place] with Travel Advisories : No Travel Outside [place] Within Last 30 Days : No Contact With Traveler to Advisory Region : No Tuberculosis Symptoms : None DOMITILA VILLALTA RN - 06/13/2019 6:46 EDT Anesthesia/Transfusion History Family History of Anesthesia Reaction : No prior transfusion(s) Transfusion History : Prior anesthesia reaction Type of Anesthesia Reaction : Excessive nausea/vomiting Family History of Anesthesia Reaction : None DOMITILA VILLALTA RN - 06/13/2019 6:46 EDT Functional Assessment Living Situation : Home Patient Lives With : Spouse Current Home Treatments : CPAP DOMITILA VILLALTA RN - 06/13/2019 6:46 EDT Psychosocial History Currently in Unsafe Situation : No Tried to Harm Yourself in the Past? : No Thoughts of Harming/Killing Yourself : No DOMITILA VILLALTA RN - 06/13/2019 6:46 EDT Advance Directive Patient has Advance Directive *Q : No, patient refuses Advance Directive information DOMITILA VILLALTA RN - 06/13/2019 6:46 EDT Teaching/Learning Assessment Barriers To Learning : None evident Individuals Taught : Patient, Spouse DOMITILA VILLALTA RN - 06/13/2019 6:46 EDT Education Topics, Periop Preadmission Perioperative Education Grid Arrival Time/Place : Verbalizes understanding Falls : Verbalizes understanding Infection Control : Verbalizes understanding IV's : Verbalizes understanding NPO Status/Directions : Verbalizes understanding Pain Management : Verbalizes understanding Postoperative Care Preparations : Verbalizes understanding Preprocedure Preparations : Verbalizes understanding Preprocedure Tests/Labs : Verbalizes understanding Responsible Adult : Verbalizes understanding DOMITILA VILLALTA RN - 06/13/2019 6:46 EDT General Info Support Person/Pt Rep Name : Neetu Slaughter- Support Person/Pt Rep Contact Information : [phone] Want Family/Rep/Phys Notified of Admit : No Emergency Contact #1 : . Emergency Contact #1 Phone Number : . Emergency Contact #1 Relationship : . Emergency Contact #2 : . Emergency Contact #2 Phone Number : . Emergency Contact #2 Relationship : . Primary Language : [place] Communication Barrier : None DOMITILA VILLALTA RN - 06/13/2019 6:46 EDT Sleep Apnea Risk Assmt BiPAP/CPAP Ordered for Home Use : Yes Hx of Obstructive Sleep Apnea Diagnosis : Yes BiPAP/CPAP Used at Home : Yes Age over 50 Years Old : Yes Gender Male : Yes DOMITILA VILLALTA RN - 06/13/2019 6:46 EDT Bill Scale Bill Sensory Perception : No impairment Bill Moisture : Rarely moist Bill Activity : Walks frequently Bill Mobility : No limitation Bill Nutrition : Excellent Bill Friction and Shear : No apparent problem Bill Score : 23 DOMITILA VILLALTA RN - 06/13/2019 6:46 EDT Pain Assessment Pain Assessment : Initial assessment Pain Scale Used : 0-10 Scale DOMITILA VILLALTA RN - 06/13/2019 6:46 EDT Fall Risk Scales ABCs Fall Injury [...] Scale Risk Level : 0-24 Low Risk [place] Fall Interventions : Adequate lighting, Assistive devices within reach, Personal items within reach, Reinforced to call for assistance before getting out of bed DOMITILA VILLALTA RN - 06/13/2019 6:46 EDT Valuables and Belongings Valuables and Belongings : Clothing Clothing : Common streetwear Clothing Disposition : Bedside, With family DOMITILA VILLALTA RN - 06/13/2019 6:46 EDT Pain Scale Intensity : 0 DOMITILA VILLALTA RN - 06/13/2019 6:46 EDT Image 4 - Images currently included in the form version of this document have not been included in the text rendition version of the form. Electronically signed by Yaneth, [facility] Conversion Threat Monitoring Analyst Cerner at 03/17/2023 9:11 PM CDT documented in this encounter Plan of Treatment Not on file documented as of this encounter Visit Diagnoses Not on filedocumented in this encounter Care Teams Electromechanic Relationship Specialty Start Date End Date Avel Traore MD [address] [place] [address] [place] [address] PCP - General General Internal Medicine 09/21/24 documented as of this encounter
--- OUTSIDE RECORDS SUMMARY | 2025-06-19 08:33 | XMS_ITS | Encounter Summary ---
Author Organization [employer] ([place], [place], [place], [place]) Address [address] [place] [address] Care Team Providers Care Sanforizer Name Role Phone Avel Traore MD Primary Care Provider [phone] Encounter Details Date Type Department Care Team (Late st Contact Info) Description 2022 Transcribed Document [facility] [place] [address] [place] [address] ProviderPhil MD [address] [place] [address] Social History Tobacco Use Types [...] Date Hua rded Speak language other than Vincentian at home Not on file 12/17/2023 Want [...] Conversion Note - Phil ProviderMD - 2022 11:42 AM COMMERCIAL ROOFING ESTIMATOR DATE OF PROCEDURE: 2022 SURGEON: Tirso Mcdonald MD PREOPERATIVE DIAGNOSIS: End-stage renal disease. POSTOPERATIVE DIAGNOSIS: End-stage renal disease. PROCEDURE: Right upper arm cephalic vein transposition. WORKFORCE MANAGEMENT CONSULTANT: GIOVANNI Cobos ANESTHESIA: LMAC. DESCRIPTION OF PROCEDURE: Using LMAC anesthesia, the patient was prepped and draped in sterile fashion. Sterile drape was used, and preoperative antibiotics were given. 1% lidocaine with epinephrine was used. The incision was made in the upper arm and carried down to identify the fistula. The fistula was unroofed to the shoulder. Once completely mobilized, a lateral subcuticular tunnel was created. The fistula was positioned in the tunnel, and the tunnel was closed using running 3-0 Vicryl suture. 3-0 Vicryl was used on subcutaneous tissue and 4-0 Monocryl on skin. Sterile bandages were applied, and the patient was taken to Outpatient in good condition. /[id number] Tirso Mcdonald MD CPA/AQ / CPA / MODL /[id number] CC: [facility] Electronically signed by [facility], [facility] Conversion [facility]ospice Executive Director Cerner at 03/17/2023 9:09 PM CDT documented in this encounter Plan of Treatment Not on file documented as of this encounter Visit Diagnoses Not on filedocumented in this encounter Care Teams Sanforizer Relationship Specialty Start Date End Date Avel Traore MD [address] [place] [address] PCP - General General Internal Medicine 09/21/24 documented as of this encounter
--- OUTSIDE RECORDS SUMMARY | 2025-06-19 08:34 | XMS_ITS | Encounter Summary ---
[facility] Organization [facility] Address [address] [place] [id number] Care Team Providers Care Rug Cleaning Supervisor Name Role Phone Avel Traore MD Primary Care Provider [phone] Reason for Visit * Reason Onset Date Comments replacement PAP device order 05/17/2023 Encounter Details Date Type Department Care Team (Late st Contact Info) Description 05/17/2023 Telephone [facility] [address] [place] [address] Nicole Asher MD [address] [place] [address] replacement PAP device order Social History Tobacco Use Types Packs/Day Years Used Date Smoking Tobacco: Never Alcohol Use Standard Drinks/Week Comments No 0 (1 standard drink = 0.6 oz pur e alcohol) PHQ-2 Answer Date Recorded Retired PHQ-9: Brief Depression Severity Measure Score 0 11/24/2022 Sex and Gender Information Value Date Recorded Sex Assigned at Not on file Legal Sex Male 11:59 AM EDT Gender Identity Not on file Sexual Orientation Not on file documented as of this encounter Miscellaneous Notes * Telephone Encounter - [place] Garcia MA - 05/17/2023 2:47 PM EDT Download in patient's chart under bookmark. * Telephone Encounter - Nicole Asher MD - 05/17/2023 12:44 PM EDT Can someone scan in his last download to make sure to get his pressure right * Telephone Encounter - [place] Escobar RegSched Rep - 05/17/2023 10:42 AM EDT [facility] faxed us a request for a new prescription for a replacement PAP device. They said he has had his PAP device for 5 years and is eligible for a new one. Fax is [phone] documented in this encounter Plan of Treatment Not on file documented as of this encounter Visit Diagnoses Not on filedocumented in this encounter Care Teams Rug Cleaning Supervisor Relationship Specialty Start Date End Date Avel Traore MD [address] [place] [address] PCP - General Internal Medicine 11/17/22 documented as of this encounter
--- OUTSIDE RECORDS SUMMARY | 2025-06-19 08:34 | XMS_ITS | Encounter Summary ---
Author Organization [employer] ([place], [place], [place], [place]) Address [address] [place] [address] Care Team Providers Care Photographer Still Name Role Phone Avel Traore MD Primary Care Provider [phone] Encounter Details Date Type Department Care Team (Late st Contact Info) Description 2022 Transcribed Document [facility] [place] [address] [place] [address] ProviderPhil MD [address] [place] [address] Social History Tobacco Use Types [...] Date Hua rded Speak language other than Citizen Of [place] at home Not on file 12/17/2023 Want [...] Conversion Note - Phil ProviderMD - 2022 9:15 AM MAT TESTER [facility] [address] [address] SAHRA BRODY :1950 Visit Time:2022 What to do next Your Diagnosis End stage renal disease, End stage renal disease Instructions From Your Care Team Diet after Discharge: Resume usual diet as tolerated, Do not drink any alcoholic beverages Activity after Discharge: Rest and relax today, No strenuous activity. Keep arm elevated 3 days, walk 3 to 5 times a day Lifting Restrictions: No heavy lifting Driving after Discharge: Do not drive for 24 hours or while taking narcotic pain medication Showering/Bathing: wash arm incision in 24 hours gently with soap and water, no submerging or soaking , no pools , tubs, etc. continue to wash daily. Do not scrub, pat dry. Notify Provider of: fever or chills, excessive bleeding, pain , swelling, pus-like drainage, or loss of sensation Wound/Incision Care after Discharge: Keep operative site/wound site clean and dry. No lotions, ointments or powders to excision See attached for additional post op instructions Take pain medication with food, take stool softeners daily while on narcotic pain medication You may also use ice for 20min every hour as needed for pain control and/or swelling Discharge Follow Up Instructions: Give Patient A-V Fistula Discharge Instructions Activity: Refer to discharge instruction sheet, Discharge Activity: Activity as tolerated Diet: Discharge Diet: Resume usual diet as tolerated Follow-Up Appointments Follow Up with TIRSO LLANES MD-DUSTIN When Within 2 weeks Comments Follow up appointment scheduled for 02/19/22 at 10:30 am Where: [address] [place] [address] [address] [id number]- Medications What How Much When Instructions Next Dose apixaban (Eliquis 2.5 mg oral tablet) 1 Tablet(s) Oral Interval Every 12 Hours amLODIPine (amLODIPine 5 mg oral tablet) 1 Tablet(s) Oral Every Day Hold if Systolic Blood Pressure (top number) is less than 140 chondroitin-glucosamine (Osteo Bi-Flex) 2 Tablet(s) Oral Every Day cyanocobalamin (Vitamin B12) 2,500 Microgram(s) Oral Every Day FLUoxetine (FLUoxetine 20 mg oral capsule) 1 Capsule(s) Oral Every Day levothyroxine (levothyroxine 88 mcg (0.088 mg) oral tablet) 1 Tablet(s) Oral Every Day metoprolol (Metoprolol Succinate ER 25 mg oral tablet, extended release) 1 Tablet(s) Oral Every Day Take your medications faithfully. Do NOT skip [...] Please dispose of unused and medications per pharmacy guidance. Education Materials AV Fistula Placement, Care After This sheet gives you information about how to care for yourself after your procedure. Your health care provider may also give you more specific instructions. If you have problems or questions, contact your health care provider. What can I expect after the procedure? After the procedure, it is common to: ??? Feel sore. ??? Feel a vibration (thrill) over the fistula. Follow these instructions at home: Incision care ??? Follow instructions from your health care provider about how to take care of your incision. Make sure you: ? Wash your hands with soap and water before and after you change your bandage (dressing). If soap and water are not available, use hand lab nurse. ? Change your dressing as told by your health care provider. ? Leave stitches (sutures), skin glue, or adhesive strips in place. These skin closures may need to stay in place for 2 weeks or longer. If adhesive strip edges start to loosen and curl up, you may trim the loose edges. Do not remove adhesive strips completely unless your health care provider tells you to do that. Fistula care ??? Check your fistula site every day to make sure the thrill feels the same. ??? Check your fistula site every day for signs of infection. Check for: ? Redness, swelling, or pain. ? Fluid or blood. ? Warmth. ? Pus or a bad smell. ??? Raise (elevate) the affected area above the level of your heart while you are sitting or lying down. ??? Do not lift anything that is heavier than 10 lb (4.5 kg), or the limit that you are told, until your health care provider says that it is safe. ??? Do not lie down on your fistula arm. ??? Do not let anyone draw blood or take a blood pressure reading on your fistula arm. This is important. ??? Do not wear tight jewelry or clothing over your fistula arm. Bathing ??? Do not take baths, swim, or use a hot tub until your health care provider approves. Ask your health care provider if you may take showers. You may only be allowed to take sponge baths. ??? Keep the area around your incision clean and dry. Medicines ??? Take kopr-dqf-dnirjny and prescription medicines only as told by your health care provider. ??? Ask your health care provider if any medicine prescribed to you can cause constipation. You may need to take steps to prevent or treat constipation, such as: ? Drink enough fluid to keep your urine pale yellow. ? Take ukyx-ivw-wncsiio or prescription medicines. ? Eat foods that are high in fiber, such as beans, whole grains, and fresh fruits and vegetables. ? Limit foods that are high in fat and processed sugars, such as fried or sweet foods. General instructions ??? Rest at home for a day or two. ??? Return to your normal activities as told by your health care provider. Ask your health care provider what activities are safe for you. ??? Keep all follow-up visits as told by your health care provider. This is important. Contact a health care provider if: ??? You have redness, swelling, or pain around your fistula site. ??? Your fistula site feels warm to the touch. ??? You have pus or a bad smell coming from your fistula site. ??? You have a fever. ??? You have numbness or coldness at your fistula site. ??? You feel a decrease or a change in the thrill. Get help right away if you: ??? Are bleeding from your fistula site. ??? Have chest pain. ??? Have trouble breathing. Summary ??? Follow instructions from your health care provider about how to take care of your incision. ??? Do not let anyone draw blood or take a blood pressure reading on your fistula arm. This is important. ??? Return to your normal activities as told by your health care provider. Ask your health care provider what activities are safe for you. ??? Contact a health care provider if you have a change in the thrill or have any signs of infection at your fistula site. ??? Keep all follow-up visits as told by your health care provider. This is important. This information is not intended to replace advice given to you by your health care provider. Make sure you discuss any questions you have with your health care provider. Document Revised: 05/03/2020 Document Reviewed: 05/22/2019 [employer] Patient Education ?? [address] [employer] [address] Tirso Llanes [address], [place] [address] Office- [phone] Akila Hidalgo, Nurse Practitioner, Discharge Instructions ??? Transposition of Arteriovenous Fistula A Transposition is a surgical procedure to elevate the fistula from a deep spot to just underneath the skin for easier access. This will need to heal approximately 4-6 weeks before it is usable. Please continue to follow up with Dr. Llanes, he will let you know when it is okay to use the graft for hemodialysis. Discharge Medications: Resume taking your medications as directed by your primary doctor. If you are given a prescription for pain medicine, you must take the paper prescription to the pharmacy. These prescriptions cannot be called in. Narcotic medications often cause nausea and constipation. Please take these with food. Drink fluids and eat foods high in fiber to help prevent constipation. You may also use an over the counter stool softener. Incision Care: Your incision will be closed with surjit and will have a dressing over it. Remove the dressing in 3 days. If you have strips of tape on your incision, they should fall off on their own. If not, gently peel them off in 10 days. Once the dressing is removed, clean your incision with antibacterial soap and water, rinse and pat dry. Leave open to air. Be sure the soap is free of moisturizer. Do not use Neosporin, peroxide, or other ointments on your incision. It is normal to have some bruising and mild bleeding. If this occurs you may cover with clean gauze and tape lightly to absorb the drainage. Showering: You may shower tomorrow. No tub baths. Keep the incision away from the shower stream. If you have a clear dressing, keep it in place. If not, wrap the dressing with plastic to protect from water. Do not soak the incision. Activity: Rest and relax today. You may move your arm normally. Your arm may swell after surgery. To help reduce swelling, use pillows to elevate your arm for the first 24-48 hours. You may also use ice to the area. There are no restrictions on lifting. Do not put anything heavy on the arm and avoid excessive pressure to the arm. Care of your AV fistula: To prevent damage to the graft, no one should take your blood pressure or stick your arm for any reason (ex: blood draws, injections, and IV???s). Never let anyone apply an colin bandage or tight elastic bandage to your arm unless they are directed by Dr. Llanes. The post op nurse will check for a ???thrill?? (buzzing or vibration at the fistula site). Place your hand over the area and feel for a thrill daily. If you could feel a thrill post-op and it goes away, call Dr. Llanes??? office or Nurse Practitioner. You will not always feel the thrill immediately. Call Dr. Llanes or Akila (Nurse Practitioner) for: - Bleeding that does not stop by applying light pressure, ice, and elevating for 20 minutes. - You cannot feel your fingers. - You cannot move your fingers or your hand starts to contract. - Signs of infection???increased redness at the incision, yellow/green drainage, fever. - If you have a thrill after surgery and you are suddenly unable to feel it. If you have problems that need hospital attention please return to [facility] on [address]. If you live out of town and are in an emergency situation please call 911 or go to the nearest emergency room. Monitored Anesthesia Care, Care After This sheet gives you information about how to care for yourself after your procedure. Your health care provider may also give you more specific instructions. If you have problems or questions, contact your health care provider. What can I expect after the procedure? After the procedure, it is common to have: ??? Tiredness. ??? Forgetfulness about what happened after the procedure. ??? Impaired judgment for important decisions. ??? Nausea or vomiting. ??? Some difficulty with balance. Follow these instructions at home: For the time period you were told by your health care provider: ??? Rest as needed. ??? Do not participate in activities where you could fall or become injured. ??? Do not drive or use machinery. ??? Do not drink alcohol. ??? Do not take sleeping pills or medicines that cause drowsiness. ??? Do not make important decisions or sign legal documents. ??? Do not take care of children on your own. Eating and drinking ??? Follow the diet that is recommended by your health care provider. ??? Drink enough fluid to keep your urine pale yellow. ??? If you vomit: ? Drink water, juice, or soup when you can drink without vomiting. ? Make sure you have little or no nausea before eating solid foods. General instructions ??? Have a responsible adult stay with you for the time you are told. It is important to have someone help care for you until you are awake and alert. ??? Take dpov-hvd-dgpgjua and prescription medicines only as told by your health care provider. ??? If you have sleep apnea, surgery and certain medicines can increase your risk for breathing problems. Follow instructions from your health care provider about wearing your sleep device: ? Anytime you are sleeping, including during daytime naps. ? While taking prescription pain medicines, sleeping medicines, or medicines that make you drowsy. ??? Avoid smoking. ??? Keep all follow-up visits as told by your health care provider. This is important. Contact a health care provider if: ??? You keep feeling nauseous or you keep vomiting. ??? You feel light-headed. ??? You are still sleepy or having trouble with balance after 24 hours. ??? You develop a rash. ??? You have a fever. ??? You have redness or swelling around the IV site. Get help right away if: ??? You have trouble breathing. ??? You have new-onset confusion at home. Summary ??? For several hours after your procedure, you may feel tired. You may also be forgetful and have poor judgment. ??? Have a responsible adult stay with you for the time you are told. It is important to have someone help care for you until you are awake and alert. ??? Rest as told. Do not drive or operate machinery. Do not drink alcohol or take sleeping pills. ??? Get help right away if you have trouble breathing, or if you suddenly become confused. This information is not intended to replace advice given to you by your health care provider. Make sure you discuss any questions you have with your health care provider. Document Revised: 07/31/2021 Document Reviewed: 10/17/2020 [employer] Patient Education ?? 2020 [employer] Emergency Awareness and Preventative Care STROKE is [...] Assistance with quitting is available by contacting 5-829-BNDO-NOW. This is a free resource providing counseling, [...] This Visit (last charted value for your 2022 visit) No Laboratory or Other Results This Visit Patient Name:SAHRA BRODY I have received this information and was given the opportunity to ask questions. Patient/Dock Boss Name: Patient/Dock Boss Signature: Relationship to Patient: Clinician/Hospital Dock Boss Signature: Date: Electronically signed by Interface, [facility] Conversion Foundation Relations Manager Cerner at 03/17/2023 9:00 PM CDT documented in this encounter Plan of Treatment Not on file documented as of this encounter Visit Diagnoses Not on filedocumented in this encounter Care Teams Photographer Still Relationship Specialty Start Date End Date Avel Traore MD [address] [place] [address] PCP - General General Internal Medicine 09/21/24 documented as of this encounter
--- OUTSIDE RECORDS SUMMARY | 2025-06-19 08:34 | XMS_ITS | Encounter Summary ---
Author Organization [employer] ([place], [place], [place], [place]) Address [address] [place] [address] Care Team Providers Care Supervisor Dials Name Role Phone Avel Traore MD Primary Care Provider [phone] Encounter Details Date Type Department Care Team (Late st Contact Info) Description 12/18/2021 Transcribed Document [facility] [place] [address] [place] [address] ProviderPhil MD [address] [place] [address] Social History Tobacco Use Types [...] Date Hua rded Speak language other than [place] at home Not on file 12/17/2023 Want [...] Miscellaneous Notes * Cerner Conversion Note - Historical ProviderMD - 12/18/2021 10:09 AM PASSENGER LOCOMOTIVE ENGINEER [facility] Main OR PostOp Summary Primary Physician: SERGIO LLANES MD-SUR Finalized Date/Time: 12/18/21 11:54:07 Pt. Name: DALLAS BRODY /Sex: 1950 Male Med Rec #: [id number] Physician: SERGIO LLANES MD-SUR Financial #: [id number] Pt. Type: O Room/Bed: Admit/Disch: 12/18/21 06:58:00 - Institution: [facility] Main OR PostOp Case Times Entry 1 In PACU II 12/18/21 10:42:00 Ready for PACU II 12/18/21 11:45:00 Discharge Discharge from PACU 12/18/21 11:45:00 II Last Modified By: Brittaney Macias Rn 12/18/21 11:54:05 Finalized By: Brittaney Macias, Rn Document Signatures Signed By: Brittaney Macias Rn 12/18/21 11:54 Electronically signed by Yaneth [facility] Conversion Manager Education Cerner at 03/17/2023 9:09 PM CDT documented in this encounter Plan of Treatment Not on file documented as of this encounter Visit Diagnoses Not on filedocumented in this encounter Care Teams Supervisor Dials Relationship Specialty Start Date End Date Avel Traore MD [address] [place] [address] [place] [address] PCP - General General Internal Medicine 09/21/24 documented as of this encounter
--- OUTSIDE RECORDS SUMMARY | 2025-06-19 08:34 | XMS_ITS | Encounter Summary ---
Author Organization [employer] ([place], [place], [place], [place]) Address [address] [place] [address] Care Team Providers Care Dialysis Registered Nurse Name Role Phone Avel Traore MD Primary Care Provider [phone] Encounter Details Date Type Department Care Team (Late st Contact Info) Description 06/17/2019 Transcribed Document [facility] [place] [facility] [place] [address] ProviderPhil MD [facility] [place] [address] Social History Tobacco Use Types Packs/Day Years Used Date Smoking Tobacco: Never Assessed Sex and Gender Information Value Date Recorded Sex Assigned at Not on file Legal Sex Male 1:29 PM CDT Gender Identity Not on file Sexual Orientation Not on file documented as of this encounter Miscellaneous Notes * [employer] Conversion Note - Phil Singh MD - 06/17/2019 1:43 PM CDT Stroke/Warfarin Instructions Entered On: 06/17/2019 13:44 EDT Performed On: 06/17/2019 13:43 EDT by Brittaney Meng Rn Stroke/Warfarin Instructions Stroke/TIA Discharge Ins : Open Warfarin Discharge Ins : N/A Brittaney Meng Rn - 06/17/2019 13:43 EDT Stroke/TIA Discharge Instructions Individualized Stroke Risk Factors *Q : Atrial fibrillation, Congestive heart failure, High cholesterol, Hypertension/High blood pressure Stroke Education Handouts Given *Q : Yes Brittaney Meng Rn - 06/17/2019 13:43 EDT Stroke Education Materials Given-Grid Activation of EMS *Q : Verbalizes understanding Follow-up Care After Discharge *Q : Verbalizes understanding Medications prescribed at DC *Q : Verbalizes understanding Risk Factors for Stroke *Q : Verbalizes understanding Warning S&S of Stroke *Q : Verbalizes understanding Brittaney Meng Rn - 06/17/2019 13:43 EDT Stroke/TIA Signs/Symptoms to Report Immediately : Sudden onset difficulty speaking, Sudden onset difficulty understanding speech, Sudden onset change in vision, Sudden onset weakness particulary on one side of the body, Sudden onset numbness/tingling, Sudden severe headache, Sudden dizziness or trouble with gait, Call 07-30-1: EMS activation is crucial My LDL Level: : LDL Level No qualifying data available. Brittaney Meng Rn - 06/17/2019 13:43 EDT Electronically signed by Ailyn Wolfe Conversion Senior Mechanical Project Manager [employer] at 03/17/2023 8:52 PM CDT documented in this encounter Plan of Treatment Not on file documented as of this encounter Visit Diagnoses Not on filedocumented in this encounter Care Teams Dialysis Registered Nurse Relationship Specialty Start Date End Date Avel Traore MD [address] [place] [address] PCP - General General Internal Medicine 09/21/24 documented as of this encounter
--- OUTSIDE RECORDS SUMMARY | 2025-06-19 08:34 | XMS_ITS | Encounter Summary ---
[facility] Address [address] [place] [address] Care Team Providers Care Heddler Name Role Phone Avel Traore MD Primary Care Provider [phone] Encounter Details Date Type Department Care Team (Late st Contact Info) Description 08/08/2012 Conversion Encounter [facility] HISTORICAL CONV [address] [place] [address] Interface, See Report Social History Tobacco Use Types Packs/Day Years Used Date Smoking Tobacco: Never Assessed Sex and Gender Information Value Date Recorded Sex Assigned at Not on file Legal Sex Male 11:59 AM EDT Gender Identity Not on file Sexual Orientation Not on file documented as of this encounter H&P Notes * Interface, See Report - 08/08/2012 8:59 AM EDT Edvin Somers M.D. ' Joshua Weaver M.D. ' Darwin Edgar M.D. ' PABLO Trujillo M.D. ' Lukas Mayorga M.D. ' Arianna Fish APRN [facility], [address] OFFICE NOTE SAHRA SLAUGHTER : 1950 DATE OF VISIT: 08/22/2012 REASON FOR VISIT: Follow-up for macrocytic anemia. HISTORY OF PRESENT ILLNESS: Mr. Slaughter is a very pleasant 62 year old gentleman with past medical history significant for macrocytic anemia. He was referred to me initially on August 08, 2012. At that time I did extensive work-up. He is here today to discuss the results. SUBJECTIVE: The patient has been doing fairly well. His fatigue has improved. He denies any shortness of breath. No chest pain. He still has some mild muscle spasms in his abdomen and back. He denies any fever or chills. No night sweats. No nausea. No numbness or weakness of the extremities. REVIEW OF SYSTEMS: All the other nine systems are reviewed by me and negative except as mentioned in HPI. PAST MEDICAL HISTORY/SOCIAL HISTORY/FAMILY HISTORY: Unchanged from my prior documentation done on August 08, 2012. MEDICATION LIST: Reviewed by me and documented in the patient's chart. PHYSICAL EXAMINATION: VITAL SIGNS: Temperature 97.8. Heart rate 69. Respiratory rate 16. Blood pressure 140/60. GENERAL: Age appropriate. No acute distress. HEENT: Head atraumatic, normocephalic. NECK: Supple. No JVD. LUNGS: Clear to auscultation bilaterally. No wheezing. No rhonchi. SAHRA SLAUGHTER : 1950 DATE OF VISIT: 08/22/2012 PHYSICAL EXAMINATION - continued: HEART: S1, S2, no murmurs. ABDOMEN: Soft, nontender, nondistended. Bowel sounds positive. No hepatosplenomegaly. EXTREMITIES: No clubbing, cyanosis, or edema. SKIN: No rashes. No purpura. NEUROLOGIC: Awake and oriented x3. 5/5 strength in all muscle groups. LABORATORY DATA: Blood work done on August 08, 2012 showed white blood cells 4.2, hemoglobin 9.5, platelets 264, MCV of a 72, creatinine 1.7, normal liver enzymes, normal electrolytes, vitamin B12 84, folate more than 24, retic count 1.0, hemoglobin electrophoresis showed elevated hemoglobin A2 level of 5.3% consistent with beta thalassemia minor, ferritin level 70. ASSESSMENT: Mr. Slaughter is a very pleasant 62 years of age gentleman with macrocytic anemia. PROBLEM LIST: 1. Macrocytic anemia. 2. Beta thalassemia minor. 3. Vitamin B12 deficiency. 4. Chronic kidney disease. PLAN: 1. I had a long discussion today with Mr. Slaughter about his blood work abnormality. I did go over the blood work results in detail. 2. His anemia is multifactorial. The patient does have beta thalassemia minor with elevated serum A2. However, this should not cause any fci complications. Other confounding factors are vitamin B12 deficiency and anemia of chronic kidney disease. 3. I will start the patient on vitamin B12 replacement using 1000 mcg IM weekly x4, then once a month for lifetime. 4. The patient will come back to see me in follow-up visit in three months with repeat CBC, vitamin B12 level, and ferritin level. SAHRA SLAUGHTER : 1950 DATE OF VISIT: 08/22/2012 The plan was discussed in detail with Mr. Slaughter. All of his questions were answered. Mr. Slaughter feels comfortable with the above plan. Lukas Mayorga M.D.* FB/rxalw Doc. ID [id number] Rev. #0 cc: Gian Keller M.D.* Dr. Torres, [place], [place] Page 3 of 3 Page 1 of 3 Authenticated by LUKAS MAYORGA MD On 08/24/2012 12:02:20 PM * Interface, See Report - 08/08/2012 8:59 AM EDT Maira Moore M. Owen, M.D. ' Darwin Edgar M.D. ' Gonzalo Zendejas, PABLO Head M.D. ' Kenneth Phelps M.D. ' Lukas Mayorga M.D. ' Arianna Fish APRN [facility], [address] [place] [address] [email or web address] OFFICE NOTE SAHRA SLAUGHTER : 1950 DATE OF VISIT: 11/14/2012 REASON FOR VISIT: Follow-up for microcytic anemia. HISTORY OF PRESENT ILLNESS: Mr. Slaughter is a very pleasant 62 year old gentleman with past medical history significant for microcytic anemia. He was referred to me initially on August 08, 2012. He had extensive workup done that revealed low vitamin B12 levels, beta thalassemia minor, and chronic kidney disease. The patient was started on vitamin B12 replacement. He is here today for scheduled follow-up visit with repeat CBC. SUBJECTIVE: The patient has been doing extremely well. His symptoms improved significantly after the vitamin B12 replacement. He denies any shortness of breath or chest pain. No fever or chills. His energy has improved over the last two months. He denied any bleeding. No weight loss. REVIEW OF SYSTEMS: All the other nine systems reviewed by me and negative except as mentioned in HPI. PAST MEDICAL HISTORY/SOCIAL HISTORY/FAMILY HISTORY: Unchanged my prior documentation done on August 08, 2012. MEDICATION LIST: Reviewed by me and documented in the patient's chart. PHYSICAL EXAMINATION: VITAL SIGNS: Temperature 98.3. Heart rate 64. Respiratory rate 18. Blood pressure 150/70. GENERAL: Age appropriate. No acute distress. HEENT: Head atraumatic/normocephalic. NECK: Supple. No JVD. SAHRA SLAUGHTER : 1950 DATE OF VISIT: 11/14/2012 PHYSICAL EXAMINATION - continued: LUNGS: Clear to auscultation bilaterally. No wheezing. No rhonchi. HEART: S1, S2. No murmurs. ABDOMEN: Soft, nontender, nondistended. Bowel sounds positive. No hepatosplenomegaly. EXTREMITIES: No clubbing, cyanosis, or edema. SKIN: No rash or purpura. DATA: Blood work done today showed hemoglobin 11.2 which has improved from 9.5 three months ago, MCV 68, normal white blood cells and normal platelets. ASSESSMENT: Mr. Slaughter is a very pleasant 62 year old gentleman with microcytic anemia. PROBLEM LIST: 1. Microcytic anemia. 2. Beta thalassemia minor. 3. Vitamin B12 deficiency. 4. Chronic kidney disease stage III. PLAN: 1. I did go over the blood work results in detail with Mr. Slaughter. I reassured him that his hemoglobin has improved significantly over the last three months. 2. We will continue vitamin B12 maintenance at 1000 mcg IM every month. The patient will ge this with his primary care provider, Dr. Torres. 3. The patient will come back to see me in four months with repeat CBC, iron level, and vitamin B12 level. Lukas Mayorga M.D.* FB/rxalw Doc. ID [id number] Rev. #0 cc: Gian Keller M.D.* Nicholas Torres M.D.* Page 2 of 2 Page 1 of 2 Authenticated by LUKAS MAYORGA MD On 11/15/2012 04:16:53 PM * Interface, See Report - 08/08/2012 8:59 AM EDT Edvin Somers M.D. ' Joshua Weaver M.D. ' Darwin Edgar M.D. ' PABLO Trujillo M.D. ' Kenneth Phelps M.D. ' [place], MP[place] Fish APRN [address] [facility], [address] [place] [id number] [email or web address] OFFICE NOTE SAHRA SLAUGHTER : 1950 DATE OF VISIT: 03/13/2013 REASON FOR VISIT: Follow-up for microcytic anemia. HISTORY OF PRESENT ILLNESS: Mr. Slaughter is a very pleasant 63-year-old gentleman with past medical history significant for microcytic anemia. The patient was referred to me initially on August 08, 2012. He had basic work-up that revealed low vitamin B12 level, beta thalassemia minor was elevated at 82, hemoglobin 82. He had anemia of chronic kidney disease. The patient is here today in scheduled follow-up visit with repeat blood work. SUBJECTIVE: The patient has been doing extremely well. He denied any fever or chills. Denied any night sweats. No weight loss. He continues to be active and exercising every day. He denied any nausea or vomiting. REVIEW OF SYSTEMS: All the other nine systems are reviewed by me and negative except as mentioned in HPI. PAST MEDICAL HISTORY/SOCIAL HISTORY/FAMILY HISTORY: Unchanged from my prior documentation done in August 08, 2012. MEDICATIONS: Reviewed by me and documented in the patient's chart. PHYSICAL EXAM: VITAL SIGNS: Temperature 98.0. Heart rate 60. Respiratory rate 18. Blood pressure is 150/70. GENERAL: Age appropriate. No acute distress. HEENT: Head atraumatic, normocephalic. NECK: Supple. No JVD. No lymphadenopathy. LUNGS: Clear to auscultation bilaterally. No wheezing. No rhonchi. PHYSICAL EXAMINATION - continued: HEART: Regular rate and rhythm. S1, S2, no murmurs. ABDOMEN: Soft, nontender, nondistended. Bowel sounds positive. No hepatosplenomegaly. EXTREMITIES: No clubbing, cyanosis, or edema. SKIN: No rashes. No purpura. NEUROLOGIC: Awake and oriented x3. 5/5 strength in all muscle groups. LABORATORY DATA: Blood work done March 07, 2013 showed white blood cells 4.4, hemoglobin 10.2, platelets 230, MCV of 61, serum ferritin 10, vitamin B12 180, folic acid 20. ASSESSMENT: Mr. Slaughter is a very pleasant 63 year old gentleman with microcytic anemia. PROBLEM LIST: 1. Microcytic anemia. 2. Beta thalassemia minor. 3. Vitamin B12 deficiency. 4. Iron deficiency. 5. Chronic kidney disease. PLAN: 1. I did go over the blood work results in detail with Mr. Slaughter. The patient's vitamin B12 and ferritin both dropped below normal levels. 2. The patient has been on oral iron in the past and that caused significant GI symptoms with nausea, vomiting, and constipation. We will do IV iron replacement using Feraheme 510 mg IV x2 doses. 3. We will start the patient again on loading dose of vitamin B12 1000 mcg IM daily for seven days, then weekly for one month, then once every two weeks. I will obtain antiparietal cell antibody and intrinsic factor antibodies to rule out pernicious anemia. 4. I will refer the patient to see GI for EGD and colonoscopy secondary to iron deficiency anemia. The patient had a colonoscopy done approximately three to five years ago that was essentially normal. PLAN - continued: 5. The patient will come back to see me in two months with repeat CBC, ferritin, and vitamin B12 level. Lukas Mayorga M.D.* JOE/rxalw Doc. ID [id number] Rev. #0 cc: Nicholas Torres M.D.* Gian Keller M.D.* SAHRA SLAUGHTER : 1950 DATE OF VISIT: 03/13/2013 Page 2 of 3 Page 1 of 3 Authenticated by LUKAS MAYORGA MD On 03/16/2013 09:28:25 AM * Interface, See Report - 08/08/2012 8:59 AM EDT Edvin Somers M.D. ' Joshua Weaver M.D. ' Darwin Edgar M.D. ' PABLO Trujillo M.D. ' Kenneth Phelps M.D. ' Lukas Mayorga M.D. ' Arianna Fish APRN [address] [facility], [facility] [address] [place] [address] [email or web address] OFFICE NOTE SAHRA SLAUGHTER : 1950 DATE OF VISIT: 05/01/2013 REASON FOR VISIT: Follow-up for microcytic anemia. HISTORY OF PRESENT ILLNESS: Mr. Slaughter is a very pleasant 63-year-old gentleman with past medical history significant for microcytic anemia. The patient was referred to me initially in 2011. Basic work-up revealed low vitamin B12 level, beta thalassemia minor with elevated A2, iron deficiency, and anemia of chronic kidney disease. The patient was treated with vitamin B12 replacement. His follow-up labs showed further decrease in his vitamin B12 and iron deficiency. He was treated with IV iron using Feraheme in February 2013 and also restarted on loading dose of vitamin B12. The patient is here today in scheduled follow-up visit. SUBJECTIVE: The patient has been doing extremely well. He feels significantly better after the IV iron and the vitamin B-12 replacement. He denied any fever or chills. No night sweats. REVIEW OF SYSTEMS: All of the other nine systems are reviewed by me and negative except as mentioned in HPI. PAST MEDICAL HISTORY/SOCIAL HISTORY/FAMILY HISTORY: Unchanged from my prior documentation done on August 08, 2011. MEDICATION LIST: Reviewed by me and documented in the patient's chart. PHYSICAL EXAMINATION: VITAL SIGNS: Temperature 98.2. Heart rate 60. Respiratory rate 18. Blood pressure 140/60. GENERAL: Age appropriate. No acute distress. HEENT: Head atraumatic, normocephalic. NECK: Supple. No JVD. No lymphadenopathy. LUNGS: Clear to auscultation bilaterally. No wheezing. No rhonchi. HEART: Regular rate and rhythm. S1, S2, no murmurs. ABDOMEN: Soft, nontender, nondistended. Bowel sounds positive. No hepatosplenomegaly. EXTREMITIES: No clubbing, cyanosis, or edema. SKIN: No rashes. No purpura. NEUROLOGIC: Awake and oriented x3. 5/5 strength in all muscle groups. LABORATORY DATA: Blood work done on April 21, 2013 showed white blood cells 5.4, hemoglobin 10.5, MCV 62, platelets 205, ferritin 190 - improved from 10 on March 07, 2013, vitamin B12 800 - improved from 180 on March 07, 2013. ASSESSMENT: Mr. Slaughter is a very pleasant 63-year-old gentleman with microcytic anemia. PROBLEM LIST: 1. Microcytic anemia. 2. Beta thalassemia minor. 3. Vitamin B12 deficiency. 4. Iron deficiency. 5. Chronic kidney disease. PLAN: 1. I did go over the blood work results in detail with Mr. Slaughter. I reassured him that his blood counts are stable. His anemia is mildly improved. His vitamin B12 level and ferritin level is improved significantly. 2. We will continue vitamin B12 1000 mcg IM every two weeks. 3. The patient will come back to see in three months with repeat CBC. PLAN - continued: 4. I will refer him to see Dr. Bubba Solares for EGD and colonoscopy secondary to iron anemia. Lukas Mayorga M.D.* FB/rxalw Doc. ID [id number] Rev. #0 cc: Gian Keller M.D.* Nicholas Torres M.D.* SAHRA SLAUGHTER : 1950 DATE OF VISIT: 05/01/2013 Page 3 of 3 Page 1 of 3 DOCUMENT CODE :[facility]: PHYSICIAN CODE :[id number]: Authenticated by LUKAS MAYORGA MD On 05/02/2013 06:07:49 PM * Interface, See Report - 08/08/2012 8:59 AM EDT Edvin Somers M.D. ' Joshua Weaver M.D. ' Darwin Edgar M.D. ' PABLO Trujillo M.D. ' Kenneth Phelps M.D. ' Lukas Mayorga M.D. ' Arianna Fish APRN [address] [place] [address], [facility] [address] [place] [address] [email or web address] OFFICE NOTE SAHRA SLAUGHTER : 1950 DATE OF VISIT: 08/07/2013 REASON FOR VISIT: Follow-up for microcytic anemia. HISTORY OF PRESENT ILLNESS: Mr. Slaughter is a very pleasant 63-year-old gentleman with past medical history significant for microcytic anemia. The patient was referred to me initially in 2011. Basic work-up revealed low vitamin B12 level, beta thalassemia minor with elevated A2, iron deficiency, and anemia of chronic kidney disease. The patient was treated with vitamin B12 replacement. His follow-up labs showed further decrease in his vitamin B12 and iron deficiency. He was treated with IV iron using Feraheme in February 2013 and also restarted on loading dose of vitamin B12. The patient is here today in scheduled follow-up visit. SUBJECTIVE: The patient has been doing fairly well. He feel significantly better after starting vitamin B12. He denied any headaches. Denied any chest pain. No change in urine or stool color. REVIEW OF SYSTEMS: All of the other nine systems are reviewed by me and negative except as mentioned in HPI. PAST MEDICAL HISTORY/SOCIAL HISTORY/FAMILY HISTORY: Unchanged from my prior documentation done on August 08, 2011. MEDICATION LIST: Reviewed by me and documented in the patient's chart. PHYSICAL EXAM: VITAL SIGNS: Temperature 98.0. Heart rate 55. Respiratory rate 18. Blood pressure 130/60. GENERAL: Age appropriate. No acute distress. PHYSICAL EXAMINATION - continued: HEENT: Head atraumatic, normocephalic. NECK: Supple. No JVD. No lymphadenopathy. LUNGS: Clear to auscultation bilaterally. No wheezing. No rhonchi. HEART: Regular rate and rhythm. S1, S2, no murmurs. ABDOMEN: Soft, nontender, nondistended. Bowel sounds positive. No hepatosplenomegaly. EXTREMITIES: No clubbing, cyanosis, or edema. SKIN: No rashes. No purpura. NEUROLOGIC: Awake and oriented x3. 5/5 strength in all muscle groups. LABORATORY DATA: Blood work done July 28, 2013 showed white blood cells 7.0, hemoglobin 11.1, MCV 60, platelets 223, vitamin B12 470, folic acid 22, ferritin 130. ASSESSMENT: Mr. Slaughter is a very pleasant 63-year-old gentleman with microcytic anemia. PROBLEM LIST: 1. Microcytic anemia. 2. Beta thalassemia minor. 3. Vitamin B12 deficiency. 4. Iron deficiency, negative EGD, colonoscopy, and capsule enteroscopy done June and July 2013. 5. Chronic kidney disease. PLAN: 1. I did go over the blood work results in detail with Mr. Slaughter. I reassured him that his hemoglobin is stable as well as his ferritin and vitamin levels. 2. We will continue vitamin B12 1000 mcg IM every two weeks. 3. The patient will come back to see me in three months with repeat CBC, ferritin level, and vitamin B12. Lukas Mayorga M.D.* FB/rxalw Doc. ID [id number] Rev. #0 cc: Gian Keller M.D.* Nicholas Torres M.D.* Bubba Solares D.O.* SAHRA SLAUGHTER : 1950 DATE OF VISIT: 08/07/2013 Page 2 of 2 Page 1 of 2 DOCUMENT CODE :[facility]: PHYSICIAN CODE :[id number]: Authenticated by LUKAS MAYORGA MD On 08/09/2013 03:34:06 PM * Interface, See Report - 08/08/2012 8:59 AM EDT Edvin Somers M.D. ' Joshua Weaver M.D. ' Darwin Edgar M.D. ' Maira Gonzalez M.D. ' Jayla Rahman M.D. ' Arianna Fish APRN ' Park Arellano APRN [facility], [facility] [address] [place] [address] [email or web address] OFFICE NOTE SAHRA SLAUGHTER : 1950 DATE OF VISIT: 11/06/2013 REASON FOR VISIT: Followup for microcytic anemia. HISTORY OF PRESENT ILLNESS: Mr. Slaughter is a very pleasant 63-year-old gentleman with past medical history significant for microcytic anemia. The patient was referred to me initially in 2011. Basic workup revealed low vitamin B12 level, beta thalassemia minor with elevated A2, iron deficiency, and anemia of chronic kidney disease. The patient was treated with vitamin B12 replacement. His followup labs showed further decrease in his vitamin B12 and iron deficiency. He was treated with IV iron using Feraheme in February 2013 and also restarted on loading dose of vitamin B12. The patient is here today in scheduled followup visit. SUBJECTIVE: The patient denied any bleedings, denied any skin bruises. He denied any numbness in his extremities. He is compliant with his B12 shots twice a month. REVIEW OF SYSTEMS: All the other nine systems are reviewed by me and negative except what is mentioned in HPI. PAST MEDICAL HISTORY/SOCIAL HISTORY/FAMILY HISTORY: Unchanged from my prior documentation done on August 08, 2011. MEDICATION LIST: Reviewed by me and documented in the patient's chart. PHYSICAL EXAM: VITAL SIGNS: Temperature 98.1. Heart rate 60. Respiratory rate 16. Blood pressure 150/67. GENERAL: Age appropriate. No acute distress. HEENT: Head atraumatic, normocephalic. NECK: Supple. No JVD. No lymphadenopathy. LUNGS: Clear to auscultation bilaterally. No wheezing. No rhonchi. HEART: Regular rate and rhythm. S1, S2, no murmurs. ABDOMEN: Soft, nontender, nondistended. Bowel sounds positive. No hepatosplenomegaly. EXTREMITIES: No clubbing, cyanosis, or edema. SKIN: No rashes. No purpura. NEUROLOGIC: Awake and oriented x3. 5/5 strength in all muscle groups. LABORATORY DATA: Blood work done 11/02/2013 showed white blood cells 5.2, hemoglobin 12, MCV 60, platelets 214, serum ferritin 93, vitamin B12 440. ASSESSMENT: Mr. Slaughter is a very pleasant 63-year-old gentleman with microcytic anemia. PROBLEM LIST: 1. Microcytic anemia. 2. Beta thalassemia minor. 3. Vitamin B12 deficiency. 4. Iron deficiency, negative EGD, colonoscopy, and capsule enteroscopy done June and July 2013. 5. Chronic kidney disease. PLAN: 1. I did go over the blood work results with Sahra. I reassured him that his anemia is stable. 2. Patient's ferritin has been drifting down, however, he had a thorough evaluation that was negative. 3. Patient will come back to see me in three months with repeat CBC, ferritin, and vitamin B12. 4. Will continue B12 1000 mcg IM every two weeks. Lukas Mayorga M.D.* FB/rxblt Doc. ID [id number] Rev. #0 cc: Gian Keller M.D.* Nicholas Torres M.D.* Bubba Solares D.O.* SAHRA SLAUGHTER : 1950 DATE OF VISIT: 11/06/2013 Page 2 of 3 Page 1 of 3 DO NOT TEXT EDIT THIS LINE :[facility]:[id number]: Authenticated by LUKAS MAYORGA MD On 11/07/2013 04:34:54 PM documented in this encounter Plan of Treatment Not on file documented as of this encounter Visit Diagnoses Not on filedocumented in this encounter Additional Health Concerns Infection Onset Date Last Indicated Resolved Time COVID Screen (preop/placement) 10/17/2021 10/17/2021 10/17/2021 11:58 PM EST documented as of this encounter Care Teams Heddler Relationship Specialty Start Date End Date Avel Traore MD [address] [place] [id number] PCP - General Internal Medicine 11/17/22 documented as of this encounter
--- OUTSIDE RECORDS SUMMARY | 2025-06-19 08:34 | XMS_ITS | Encounter Summary ---
Author Organization [employer] ([place], [place], [place], [place]) Address [address] [place] [address] Care Team Providers Care Wrapping Checker Name Role Phone Avel Traore MD Primary Care Provider [phone] Encounter Details Date Type Department Care Team (Late st Contact Info) Description 2022 Transcribed Document [facility] Family Medicine [address] [place] [address] ProviderPhil MD [address] [place] [address] Social History Tobacco Use Types [...] Date Hua rded Speak language other than Venezuelan at home Not on file 12/17/2023 Want [...] Conversion Note - Phil ProviderMD - 2022 9:45 AM CHIEF DIETITIAN [facility] [address] [place] [id number] SAHRA BRODY :1950 Visit Time:2022 What to [...] See attached for additional post op instructions May resume Eliquis tomorrow 02/06/22 Take pain medication with food, take stool [...] scheduled for 02/19/22 at 10:30 am Where: [facility] [address] [place] [address]- Medications What How Much When Instructions Next [...] and water are not available, use hand mold stamper and repairer. ? Change your dressing as told by [...] incision clean and dry. Medicines ??? Take pkwj-rgk-uithrtl and prescription medicines only as told by your health care provider. ??? Ask your health care provider if any medicine prescribed to you can cause constipation. You may need to take steps to prevent or treat constipation, such as: ? Drink enough fluid to keep your urine pale yellow. ? Take yerg-ytd-xlmlgqx or prescription medicines. ? Eat foods that [...] provider. Document Revised: 05/03/2020 Document Reviewed: 05/22/2019 [employer] Patient Education ?? [address] [employer] Tirso Llanes [address], [address]- [phone] Akila Hidalgo, Nurse Practitioner, Discharge Instructions ??? [...] Care: Your incision will be closed with srujit and will have a dressing over it. [...] that need hospital attention please return to [facility] on [address]. If you live out of town [...] you are awake and alert. ??? Take qrtt-hri-qmmexnh and prescription medicines only as told by [...] provider. Document Revised: 07/31/2021 Document Reviewed: 10/17/2020 [employer] Patient Education ?? 2020 [employer] Emergency Awareness and Preventative Care STROKE [...] Assistance with quitting is available by contacting 7-464-EDAF-NOW. This is a free resource providing counseling, [...] given the opportunity to ask questions. Patient/Supervisor Stone Name: Patient/Supervisor Stone Signature: Relationship to Patient: Clinician/Hospital Supervisor Stone Signature: Date: Electronically signed by Interface, [facility] Conversion Sulfuric Acid Plant Operator Cerner at 03/17/2023 8:52 PM CDT documented in this encounter Plan of Treatment Not on file documented as of this encounter Visit Diagnoses Not on filedocumented in this encounter Care Teams Wrapping Checker Relationship Specialty Start Date End Date Avel Traore MD [address] [place] [address] PCP - General General Internal Medicine 09/21/24 documented as of this encounter
--- OUTSIDE RECORDS SUMMARY | 2025-06-19 08:34 | XMS_ITS | Encounter Summary ---
Author Organization [employer] ([place], [place], [place], [place]) Address [address] [place] [address] Care Team Providers Care Optometry Doctor Name Role Phone Avel Traore MD Primary Care Provider [phone] Encounter Details Date Type Department Care Team (Late st Contact Info) Description 2022 Transcribed Document [facility] [place] Medicine [address] [place] [address] ProviderPhil MD [address] [place] [address] Social History Tobacco Use Types [...] Date Hua rded Speak language other than Burmese at home Not on file 12/17/2023 Want [...] Conversion Note - Phil ProviderMD - 2022 9:13 AM REVENUE ANALYST Patient Education Materials Follows: Dr. Tirso Mcdonald [address] [facility]. [address] -[facility], [place] [address] Office- [phone] Akila Costais, Nurse Practitioner, Discharge Instructions - Transposition of Arteriovenous Fistula A Transposition is a surgical procedure to elevate the fistula from a deep spot to just underneath the skin for easier access. This will need to heal approximately 4-6 weeks before it is usable. Please continue to follow up with Dr. Mcdonald, he will let you know when it [...] any reason (ex: blood draws, injections, and IV's). Never let anyone apply an colin bandage or tight elastic bandage to your arm unless they are directed by Dr. Mcdonald. The post op nurse will check for a ???thrill?? (buzzing or vibration at the fistula site). Place your hand over the area and feel for a thrill daily. If you could feel a thrill post-op and it goes away, call Dr. Mcdonald' office or Nurse Practitioner. You will not always feel the thrill immediately. Call Dr. Mcdonald or Akila (Nurse Practitioner) for: - Bleeding that does not stop by applying light pressure, ice, and elevating for 20 minutes. - You cannot feel your fingers. - You cannot move your fingers or your hand starts to contract. - Signs of infection-increased redness at the incision, yellow/green drainage, fever. - If you have a thrill after surgery and you are suddenly unable to feel it. If you have problems that need hospital attention please return to [facility] on [facility]. If you live out of town and are in an emergency situation please call 911 or go to the nearest emergency room. Nephrology AV Fistula Placement, Care After This sheet [...] and water are not available, use hand automotive service director. ? Change your dressing as told by [...] incision clean and dry. Medicines ??? Take qxgq-xym-vkwjnbr and prescription medicines only as told by your health care provider. ??? Ask your health care provider if any medicine prescribed to you can cause constipation. You may need to take steps to prevent or treat constipation, such as: ? Drink enough fluid to keep your urine pale yellow. ? Take kjov-njk-pqcxscc or prescription medicines. ? Eat foods that [...] provider. Document Revised: 05/03/2020 Document Reviewed: 05/22/2019 [employer] Patient Education ? 2020 [employer]. Pharmacology Monitored Anesthesia Care, Care After This sheet [...] you are awake and alert. ??? Take oopr-dzy-xutezfb and prescription medicines only as told by [...] provider. Document Revised: 07/31/2021 Document Reviewed: 10/17/2020 [employer] Patient Education ? 2020 [employer]. documented in this encounter Plan of Treatment Not on file documented as of this encounter Visit Diagnoses Not on filedocumented in this encounter Care Teams Optometry Doctor Relationship Specialty Start Date End Date Avel Traore MD [address] [place] [address] [place] [address] PCP - General General Internal Medicine 09/21/24 documented as of this encounter
--- OUTSIDE RECORDS SUMMARY | 2025-06-19 08:34 | XMS_ITS | Encounter Summary ---
Author Organization [employer] ([place], [place], [place], [place]) Address [address] [place] [address] Care Team Providers Care Production Crew Supervisor Name Role Phone Avel Traore MD Primary Care Provider [phone] Encounter Details Date Type Department Care Team (Late st Contact Info) Description 06/16/2019 Transcribed Document [facility] [place] [facility] [place] [address] ProviderPhil MD [address] [place] [address] Social History Tobacco Use Types Packs/Day Years Used Date Smoking Tobacco: Never Assessed Sex and Gender Information Value Date Recorded Sex Assigned at Not on file Legal Sex Male 1:29 PM CDT Gender Identity Not on file Sexual Orientation Not on file documented as of this encounter Miscellaneous Notes * Cerner Conversion Note - Phil Singh MD - 06/16/2019 10:18 AM CDT Evaluation, Physical Therapy Entered On: 06/17/2019 12:08 EDT Performed On: 06/17/2019 11:52 EDT by JACK JIMENEZ, PT General Information, PT Visit Type, PT : Initial evaluation Patient Orders : Order Date Order Ordering 06/16/2019 10:18 PT Evaluation and Treatment Ordered By: Barrera Escalante MD Active Diagnoses : 06/15/2019 00:00 Abnormal levels of other serum enzymes 06/15/2019 00:00 Anemia, unspecified 06/15/2019 00:00 Bradycardia, unspecified 06/15/2019 00:00 Hypotension, unspecified 06/15/2019 00:00 Syncope and collapse 06/15/2019 00:00 Syncope/Near syncope Therapy Diagnosis, PT : PT eval for moblity with no skilled services indicated at this time Onset of Problem, PT : 06/15/2019 EDT Admission Date : 06/15/2019 14:45 Personal Devices : Personal Devices Other: top bridge permanent Assistive Devices : Assistive Devices No Devices Recorded Precautions in Place : Fall prevention measures, Other: recent PM placement; sling to LUE General Information Comment, PT : Pt admitted with syncope, bradycardia and anemia Pt had recent ablation with discharge home with syncopal episode occuring at home. Pt with re-admit and had PPM on 06/16 with PT order following surgery JACK JIMENEZ, PT - 06/17/2019 11:52 EDT General Status Patient Received Status : Up in chair Treatment Start Time : 06/17/2019 11:29 EDT Patient Left Status : Up in chair, RN/PCT informed, Family/Visitors at bedside, All needs met and within reach RN/PCT Informed Comment : Brittaney shayy PT Treatment End Time : 06/17/2019 11:40 EDT Treatment Time : 11 Minute(s) JACK JIMENEZ, PT - 06/17/2019 11:52 EDT History and Environment Living Situation, Therapy : Home Patient Lives With : Spouse Professional Skilled Services : None Persons Providing Information : Patient, Spouse Home Equipment Therapy, PT : None Home Setup : One story Bathroom #1 Features : Walk-In shower Stairs : Yes Stair Location(s) : Inside, Outside Inside Stairs, Number of Steps : 2 Outside Stairs, Number of Steps : 1 JACK JIMENEZ, PT - 06/17/2019 11:52 EDT Prior Level of Function PT GRID Prior LOF Ambulation, Household : Independent Prior LOF Ambulation, Community : Independent Prior LOF Bed Mobility : Independent Prior LOF Toileting : Independent Prior LOF Transfer : Independent JACK JIMENEZ, PT - 06/17/2019 11:52 EDT Upper Extremity Right UE Active ROM : WFL Right UE Strength : WFL Upper Extremity Comment : L UE s/p PPM therfore NT but pt with WFL elbow/wrist/hand AROM JACK JIMENEZ, PT - 06/17/2019 11:52 EDT Lower Extremity RLE Active ROM : WFL Right LE Strength : WFL LLE Active ROM : WFL Left LE Strength : WFL JACK JIMENEZ, PT - 06/17/2019 11:52 EDT Functional Mobility Mobility Grid Sit to Stand : Rehab Complete independence Stand to Sit : Rehab Complete independence JACK JIMENEZ, PT - 06/17/2019 11:52 EDT Gait Training/Assessment, PT Weight Bearing Status : Full Gait Assistance Level : Independent, complete Walking Distance : Pt amb 300' independently with L UE in sling Ambulatory Devices : Gait belt Gait Deviations : No JACK JIMENEZ, PT - 06/17/2019 11:52 EDT 4 Item Dynamic Gait Index Gait Level Surface : Normal Change in Gait Speed : Normal Gait With Horizontal Head Turns : Normal Gait With Vertical Head Turns : Normal Interpretation: 4 item DGI < 10/12 = falls risk : 12 JACK JIMENEZ, PT - 06/17/2019 11:52 EDT Cognition Assessment, PT Orientation : Oriented x 4 Safety/Judgment Comment : good Follows Basic Command Assessment : yes Attention Assessment : Present JACK JIMENEZ PT - 06/17/2019 11:52 EDT Edu Topics Physical Therapy Education Grid Gait Training : Verbalizes understanding, Returns demonstration Role of Physical Therapy : Verbalizes understanding Safety : Verbalizes understanding, Returns demonstration Transfer Training : Verbalizes understanding, Returns demonstration JACK JIMENEZ, PT - 06/17/2019 11:52 EDT Indication Assesessment, PT Physical Therapy Indicated : No Physical Therapy Not Indicated : Independent, complete, No skilled services ind. JACK JIMENEZ, PT - 06/17/2019 11:52 EDT Plan of Care, PT PT Tx Plan/Goals Established w Patient : Yes Reason Tx/Plan Not Established W/ Pt PT : PT eval only as pt demonstrated safe independent functional mobility and does not require skilled PT services at this time JACK JIMENEZ, PT - 06/17/2019 11:52 EDT Treatment Note Subjective Comment : agreed to PT Patient's Response to Treatment : cooperative and without c/o during PT eval Additional Objective Information : Pt instructed to do AROM L elbow/wrist/hand and stated he felt better after getting to move L arm some- Pt expressed understanding of PPM precautions Assessment : Pt demonstrated safe independent functional mobitiy and does not require skilled PT services at this time Plan for Treatment : PT eval only BARBARAJACK, PT - 06/17/2019 11:52 EDT Pain Assessment Pain Scaled Used : 0-10 Pain scale Pain Score Pre-Intervention : 3 Pain Score During-Intervention : 2 Pain Score Post-Intervention. : 2 BARBARA JACK Yayo, PT - 06/17/2019 11:52 EDT Image 1 - Images currently included in the form version of this document have not been included in the text rendition version of the form. Anticipated Discharge Needs, OT/PT Anticipated Discharge to : Home, independently, Home, with family care Recommend Continued Therapy at Discharge : No JACK JIMENEZ, PT - 06/17/2019 11:[address] [facility] PT Charges PT Eval Low Complexity : 1 JACK JIMENEZ, PT - 06/17/2019 11:52 EDT Electronically signed by Yaneth [facility] Conversion Director Of Instructional Technology Cerner at 03/17/2023 9:09 PM CDT documented in this encounter Plan of Treatment Not on file documented as of this encounter Visit Diagnoses Not on filedocumented in this encounter Care Teams Production Crew Supervisor Relationship Specialty Start Date End Date Avel Traore MD [address] [place] [address] PCP - General General Internal Medicine 09/21/24 documented as of this encounter
--- OUTSIDE RECORDS SUMMARY | 2025-06-19 08:34 | XMS_ITS | Encounter Summary ---
Author Organization [employer] ([place], [place], [place], [place]) Address [address] [place] [address] Care Team Providers Care Regulator Assembler Name Role Phone Avel Traore MD Primary Care Provider [phone] Encounter Details Date Type Department Care Team (Late st Contact Info) Description 06/17/2019 Transcribed Document [facility] Family Medicine [facility] [place] [address] ProviderPhil MD [address] [place] [id number] Social History Tobacco Use Types Packs/Day Years Used Date Smoking Tobacco: Never Assessed Sex and Gender Information Value Date Recorded Sex Assigned at Not on file Legal Sex Male 1:29 PM CDT Gender Identity Not on file Sexual Orientation Not on file documented as of this encounter Miscellaneous Notes * Cerner Conversion Note - Phil Singh MD - 06/17/2019 3:09 PM CDT Nursing Discharge Summary Entered On: 06/17/2019 15:10 EDT Performed On: 06/17/2019 15:09 EDT by Brittaney Meng Rn Discharge Documentation Discharge Date/Time : 06/17/2019 14:30 EDT Patient Disposition, General : Discharge Discharge To : Home with ambulatory/outpatient follow-up Mode Of Departure, General Discharge : Private vehicle, Wheelchair Accompanied By, Discharge : Spouse IV Discontinued : Yes Medications Given to Patient : No Personal Belongings With Patient : Yes Prescriptions Given to Patient : Yes Discharge Instructions Reviewed With, Opportunity For Questions Given : Patient, Spouse Patient Education Completed : Yes Number of Prescriptions Given : 3 Teaching Method : Explanation Teaching Evaluation : Verbalizes understanding Brittaney Meng, Rn - 06/17/2019 15:09 EDT Electronically signed by Yaneth, [facility] Conversion Stum[employer] Selector Cerner at 03/17/2023 9:01 PM CDT documented in this encounter Plan of Treatment Not on file documented as of this encounter Visit Diagnoses Not on filedocumented in this encounter Care Teams Regulator Assembler Relationship Specialty Start Date End Date Avel Traore MD [address] [place] [address] [place] [address] PCP - General General Internal Medicine 09/21/24 documented as of this encounter
--- OUTSIDE RECORDS SUMMARY | 2025-06-19 08:34 | XMS_ITS | Encounter Summary ---
Author Organization [employer] ([place], [place], [place], [place]) Address [address] [place] [address] Care Team Providers Care Advanced Practice Nurse Name Role Phone Avel Traore MD Primary Care Provider [phone] Encounter Details Date Type Department Care Team (Late st Contact Info) Description 06/16/2019 Transcribed Document [facility] [place] [facility] [place] [address] ProviderPhil MD [address] [place] [id number] Social History Tobacco Use Types Packs/Day [...] MD - 06/16/2019 10:18 AM CDT Evaluation, Occupational Therapy Entered On: 06/16/2019 15:32 EDT Performed On: 06/16/2019 15:15 EDT by PATRICIA OGDEN, OTR/Jacob General Information, OT Visit Type, OT : Initial evaluation Patient Orders : Order Date Order Ordering 06/16/2019 10:18 OT Evaluation and Treatment Ordered By: Barrera Escalante MD Active Diagnoses : 06/15/2019 00:00 Abnormal levels of other serum enzymes 06/15/2019 00:00 Anemia, unspecified 06/15/2019 00:00 Bradycardia, unspecified 06/15/2019 00:00 Hypotension, unspecified 06/15/2019 00:00 Syncope and collapse 06/15/2019 00:00 Syncope/Near syncope Therapy Diagnosis, OT : impaired fxl mobility Onset of Problem, OT : 06/15/2019 EDT Admission Date : 06/15/2019 14:45 Personal Devices : Personal Devices Other: top bridge permanent Assistive Devices : Assistive Devices No Devices Recorded Precautions in Place : Fall prevention measures, Other: recent PM placement; sling to LUE General Information Comment, OT : Pt is a 69 y.o. male admitted with syncope and anemia. Pt had ablation on Wednesday, went home and had syncopal episodes. Pt has new PM today. Pt is awake and alert and agrees to eval. Pt's spouse in room and is supportive. PATRICIA OGDEN OTR/L - 06/16/2019 15:15 EDT General Status Patient Received Status : Supine in bed Treatment Start Time : 06/16/2019 13:45 EDT Patient Left Status : Supine in bed, RN/PCT informed, Family/Visitors at bedside, All needs met and within reach RN/PCT Informed Comment : ok per Karen JUSTIN Treatment End Time : 06/16/2019 14:05 EDT Treatment Time : 20 Minute(s) PATRICIA OGDEN OTR/Jacob - 06/16/2019 15:15 EDT History and Environment, OT Living Situation, Therapy : Home Patient Lives With : Spouse Professional Skilled Services : None Persons Providing Information : Patient, Spouse Home Equipment, Therapy : None Home Setup : One story Bathroom #1 Features : Walk-In shower Stairs : Yes Stair Location(s) : Inside, Outside Inside Stairs, Number of Steps : 2 Outside Stairs, Number of Steps : 1 PATRICIA OGDEN OTR/L - 06/16/2019 15:15 EDT Prior LOF Bathing, OT : Independent Prior LOF Bed Mobility : Independent Prior LOF Upper Body Dressing, OT : Independent Prior LOF Lower Body Dressing, OT : Independent Prior LOF Toileting : Independent Prior LOF Transfer : Independent Prior LOF Grooming, OT : Independent PATRICIA OGDEN OTR/L - 06/16/2019 15:15 EDT Prior LOF Assist with ADL Comment : Pt reports independence prior to ablation. Pt lives with spouse and still drives. Pt exercises at gym regularly and states he walks several miles each week. Pt has no AE. 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 PATRICIA OGDEN OTR/Jacob - 06/16/2019 15:15 EDT Upper Extremity Upper Extremity Dominance : Right Right UE Active ROM : WFL PATRICIA OGDEN OTR/Jacob - 06/16/2019 15:15 EDT Left Upper Extremity Detailed ROM Grid Left Shoulder Flexion Range Comment : LUE in sling due to recent PM placement PATRICIA OGDEN OTR/Jacob 06/16/2019 15:15 EDT RadialDeviation 0-20 Shoulder Flexion 0-180 : 4/good Elbow Flexion 0-150 : 4/good Elbow Extension 0-0 : 4/good Wrist Flexion 0-80 : 4/good Wrist Extension 0-70 : 4/good PATRICIA OGDEN OTR/Jacob 06/16/2019 15:15 EDT Fine Motor Coordination Impaired : No Upper Extremity Comment : Pt using RUE in fxl manner. MMT not completed in left due to new PM placement PATRICIA OGDEN OTR/Jacob 06/16/2019 15:15 EDT Self Care/Home Management, OT Self Feeding Assist Level, OT : Supervision or set-up Grooming Assist Level, OT : Supervision or set-up Bathing Assist Level, OT : Assist, minimal Upper Body Dressing Assist Level, OT : Assist, moderate Lower Body Dressing Assist Level, OT : Assist, moderate Toileting Assist Device Comment : pt able to use urinal Toilet Transfer Comment : deferred due to HR 36 on monitor PATRICIA OGDEN OTR/Jacob 06/16/2019 15:15 EDT Functional Mobility Mobility Grid Bed Roll Left : Rehab Modified independence Bed Scooting : Rehab Modified independence Supine to Sit : Rehab Modified independence Sit to Stand : Supervision/set-up Stand to Sit : Supervision/set-up Sit to Supine : Rehab Modified independence PATRICIA OGDEN OTR/Jacob 06/16/2019 15:15 EDT Functional MobilityComment : Pt stood from EOB with SBA; pt's BP 153/87 prior to OOB; 142/70 at EOB and 133/66 when standing. Pt's HR at 36 on room monitor. Wearing gait belt, pt marched in place with close SBA and without AD. Pt returned to supine without assist. Call light in reach and pt's spouse in room. D/w RN; HR on nsg station monitor was in the 70's. PATRICIA OGDEN OTR/Jacob 06/16/2019 15:15 EDT Neurological/Sensory Overall Sensory Response : Intact PATRICIA OGDEN OTR/Jacob - 06/16/2019 15:15 EDT Cognition Assessment, OT Orientation : Oriented x 4 PATRICIA OGDEN OTR/Jacob 06/16/2019 15:15 EDT Visual/Perceptual/Vestibular, OT Vision Assessment, OT : Other: reading glasses PATRICIA OGDEN OTR/Jacob - 06/16/2019 15:15 EDT Indication Assessment, OT Occupational Therapy Indicated : Yes Problem List, OT : Impaired, activities daily living, Impaired functional mobility Potential Barriers, OT : None evident Rehabilitation Potential, OT : Good PATRICIA OGDEN OTR/Jacob 06/16/2019 15:15 EDT Plan of Care, OT OT Tx Plan/Goals Established w Patient : Yes OT Frequency Rehab : Other: 2-5X' s per wk OT Duration Rehab : Other: until goals met or pt d/c OT Treatments Planned : Activities of daily living, Functional mobility training, Therapeutic activities, Therapeutic exercises PATRICIA OGDEN OTR/Jacob 06/16/2019 15:15 EDT Proration Clerk Goals, OT Bathing LTG Grid Goal #1 Activity : Bathing Assist : Supervision or set up Date to Meet : 07/17/2019 EDT Goal Status : Initial goal Comment : sponge bath seated EOB PATRICIA OGDEN OTR/Jacob 06/16/2019 15:15 EDT Dressing, Upper Body LTG Grid Goal #1 Activity : Pullover Garment Assist : Independent, complete Date to Meet : 07/17/2019 EDT Goal Status : Initial goal PATRICIA OGDEN OTR/Jacob - 06/16/2019 15:15 EDT Toilet Transfer LTG Grid Goal #1 Activity : Toilet Transfer, Ambulatory Assist : Independent, complete Date to Meet : 07/17/2019 EDT Goal Status : Initial goal PATRICIA OGDEN OTR/Jacob 06/16/2019 15:15 EDT Treatment Note Plan for Treatment : See POC PATRICIA OGDEN OTR/Jacob 06/16/2019 15:53 EDT Subjective Comment : pt pleasant and cooperative Patient's Response to Treatment : pt tolerated well Additional Objective Information : completed initial eval MELVI CARINA GOMEZ/Jacob - 06/16/2019 15:15 EDT Assessment : Pt could benefit from short stay with OT services. Pt is close to baseline fxn. MELVI CARINA GOMEZ/Jacob - 06/16/2019 15:53 EDT Pain Assessment Pain Scaled Used : 0-10 Pain scale Pain Score Pre-Intervention : 0 PATRICIA OGDEN OTR/Jacob - 06/16/2019 15:53 EDT Image 1 - Images currently included in the form version of this document have not been included in the text rendition version of the form. Anticipated Discharge Needs, OT/PT Anticipated Discharge to : Home, with family care MELVI CARINA GOMEZ/Jacob - 06/16/2019 15:53 EDT [facility] OT Charges OT Eval Low Complexity : 1 PATRICIA OGDEN OTR/Jacob - 06/16/2019 15:53 EDT Electronically signed by Yaneth [facility] Conversion Filler Wiper Cerner at 03/17/2023 9:11 PM CDT documented in this encounter Plan of Treatment Not on file documented as of this encounter Visit Diagnoses Not on filedocumented in this encounter Care Teams Advanced Practice Nurse Relationship Specialty Start Date End Date Avel Traore MD [address] [place] [address] [place] [address] PCP - General General Internal Medicine 09/21/24 documented as of this encounter
--- OUTSIDE RECORDS SUMMARY | 2025-06-19 08:34 | XMS_ITS | Clinical Summary ---
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 COLOGUARD Routine 09/14/2023 9:54 AM EDT Colon cancer screening HEPATITIS PANEL, ACUTE Routine 10/22/2021 5:24 AM EST OCCULT BLOOD X 1, STOOL Routine 10/19/2021 12:25 PM EST from Last 3 Months or Most Recently Relevant to Health Maintenance Results * (ABNORMAL) Lipid Panel (12/05/2024 1:25 PM EST) Total Cholesterol 83(L) 100 - 199 mg/dL [facility] Triglycerides 54 0 - 149 mg/dL [facility] HDL Cholesterol 38(L) >39 mg/dL [facility] VLDL Cholesterol Marcelo 13 5 - 40 mg/dL [facility] LDL Chol Calc (NIH) 32 0 - 99 mg/dL [facility] Blood 12/05/2024 1:25 PM EST 12/05/2024 Comment:Blood Release to jarad Bradford [facility] - 12/07/2024 3:06 PM EST Performed at: 01 - [facility] [address] [facility], [place], [place] [id number] [employer] Pain[employer] Supervisor: Cassius Mccarthy PhD, Phone: [phone] Avel Traore MD LAB BLOOD ORDERABLES Final Resul t [facility] [address] [place] [address], [facility] [address] [place] [address], * Cologuard - Stool, Per Rectum (09/14/2023 9:54 AM EDT) Cologuard Negative Negative 09/20/2023 11:19 PM EDT [facility] (CLIA #:[id number]) Comment: NEGATIVE TEST RESULT. A negative Cologuard result indicates a low likelihood that a colorectal cancer (CRC) or advanced adenoma (adenomatous polyps with more advanced pre-malignant features) is present. The chance that a person with a negative Cologuard test has a colorectal cancer is less than 1 in 1500 (negative predictive value >99.9%) or has an advanced adenoma is less than 5.3% (negative predictive value 94.7%). These data are based on a prospective cross-sectional study of 10,000 individuals at average risk for colorectal cancer who were screened with both Cologuard and colonoscopy. (Tricia Rand et al, N Engl J Med 2014;370(14):4561-8813) The normal value (reference range) for this assay is negative. COLOGUARD RE-SCREENING RECOMMENDATION: Periodic colorectal cancer screening is an important part of preventive healthcare for asymptomatic individuals at average risk for colorectal cancer. Following a negative Cologuard result, the [place] Cancer Society and U.S. Multi-Society Task Force screening guidelines recommend a Cologuard re-screening interval of 3 years. References: [place] [employer] Society Guideline for Colorectal Cancer Screening: https://www.cancer.org/cancer/xcene-czpksa-fockrt/gjmxzdtwp-dplybsipx-uraerwo/ac s-rec ommendations.html.; Dwayne DK, Lexy CR, Nneka ZamoraK, Colorectal Cancer Screening: Recommendations for Physicians and Patients from the U.S. Multi-Society Task Force on Colorectal Cancer Screening , Am J Gastroenterology 2017; 112:7743-5726. TEST DESCRIPTION: Composite algorithmic analysis of stool DNA-biomarkers with hemoglobin immunoassay. Quantitative values of individual biomarkers are not reportable and are not associated with individual biomarker result reference ranges. Cologuard is intended for colorectal cancer screening of adults of either sex, 45 years or older, who are at average-risk for colorectal cancer (CRC). Cologuard has been approved for use by the U.S. FDA. The performance of Cologuard was established in a cross sectional study of average-risk adults aged 50-84. Cologuard performance in patients ages 45 to 49 years was estimated by sub-group analysis of near-age groups. Colonoscopies performed for a positive result may find as the most clinically significant lesion: colorectal cancer [4.0%], advanced adenoma (including sessile serrated polyps greater than or equal to 1cm diameter) [20%] or non- advanced adenoma [31%]; or no colorectal neoplasia [45%]. These estimates are derived from a prospective cross-sectional screening study of 10,000 individuals at average risk for colorectal cancer who were screened with both Cologuard and colonoscopy. (Tricia Mejia. et al, N Engl J Med 2014;370(14):6635-5759.) Cologuard may produce a false negative or false positive result (no colorectal cancer or precancerous polyp present at colonoscopy follow up). A negative Cologuard test result does not guarantee the absence of CRC or advanced adenoma (pre-cancer). The current Cologuard screening interval is every 3 years. ([place] [employer] Cancer Society and U.S. Multi-Society Task Force). Cologuard performance data in a 10,000 patient pivotal study using colonoscopy as the reference method can be accessed at the following location: www.Sep[employer].com/results. Additional description of the Cologuard test process, warnings and precautions can be found at www.backstitchogCONWEAVERrd.com. Stool specimen (specimen) Specimen from rectum / Unknown 09/14/2023 9:54 AM EDT 09/15/2023 5:01 PM EDT Avel Traore MD BODY FLUIDS AND STOOLS ORDERABLE S Final Result Performing Organization Address [facility] [employer] Phone Number [facility] (CLIA #:[id number]) [address] [place] [address], * Hepatitis Panel, Acute (10/22/2021 5:24 AM EST) Hepatitis B Surface Ag Non-Reacti ve Non-Reacti ve 10/22/2021 6:33 AM EST [facility] Hep A IgM Non-Reacti ve Non-Reacti ve 10/22/2021 6:33 AM EST [facility] Hep B C IgM Non-Reacti ve Non-Reacti ve 10/22/2021 6:33 AM EST [facility] Hepatitis C Ab Non-Reacti ve Non-Reacti ve 10/22/2021 6:33 AM EST [facility] Blood Venipuncture / Unknown 10/22/2021 5:24 AM EST 10/22/2021 5:58 AM EST Narrative [facility] - 10/22/2021 6:33 AM EST Results may be falsely decreased if patient taking Biotin. Janell Max DO LAB BLOOD ORDERABLES Final Result Performing Organization Address [facility] de Phone Number [facility]
[address] [place] [address], [place] [phone] * Occult Blood X 1, Stool - Stool, Per Rectum (10/19/2021 12:25 PM EST) Fecal Occult Blood Negative Negative DISK DIFFUSION 10/19/2021 1:44 PM EST [facility] Stool Specimen from rectum / Unknown Collection / Unknown 10/19/2021 12:25 PM EST 10/19/2021 12:38 PM EST Elizabeth Page DO BODY FLUIDS AND STOOLS ORDERAB LES Final Result Performing Organization Address [facility] [employer] Phone Number [facility]
[address] [place] [address], from Last 3 Months or Most Recently Relevant to Health Maintenance Insurance MEDICARE [place] [facility] [place]ives * CPR (Attempt to Resuscitate) (Latest Code Status on File) Date Activated Date Inactivated Comments 10/17/2021 8:15 PM 10/28/2021 6:37 PM Question Answer Comments Code Status (Patient has no pulse and is not breathing): CPR (Attempt to Resuscitate) Medical Interventions (Patie nt has pulse or is breathing): Full Support Level Of Support Discussed With: Patient Care Teams Quality Assurance Calibrator Relationship Specialty Start Date End Date Avel Traore MD [address] [place] [address] [place] [address] PCP - General Internal Medicine 11/17/22
--- OUTSIDE RECORDS SUMMARY | 2025-06-19 08:34 | XMS_ITS | Encounter Summary ---
Author Organization [employer] ([place], [place], [place], [place]) Address [address] [place] [address] Care Team Providers Care Organic Chemistry Teacher Name Role Phone Avel Traore MD Primary Care Provider [phone] Encounter Details Date Type Department Care Team (Late st Contact Info) Description 12/18/2021 Transcribed Document [facility] [place] [address] [place] [address] ProviderPhil MD [address] [place] [address] Social History Tobacco Use Types [...] Date Hua rded Speak language other than Kosovan at home Not on file 12/17/2023 Want [...] - Historical ProviderMD - 12/18/2021 10:09 AM DELIVERY ANALYST [facility] Main OR Preop Summary Primary Physician: SERGIO LLANES MD-SUR Finalized Date/Time: 12/18/21 11:16:57 Pt. Name: DALLAS BRODY /Sex: 1950 Male Med Rec #: [id number] Physician: SERGIO LLANES MD-SUR Financial #: [id number] Pt. Type: O Room/Bed: Admit/Disch: 12/18/21 06:58:00 - Institution: [facility] PreOp Case Times Entry 1 In Preop 12/18/21 07:24:00 Ready for Holding n/a Room Patient Ready for 12/18/21 09:09:00 Surgery Patient Out of Preop 12/18/21 09:50:00 Patient Out of n/a Holding Room Last Modified By: Buzz Lew Rn 12/18/21 11:16:55 [facility] PreOp Case Times Audit 12/18/21 11:16:55 Supervisor Roller Shop: [id number] Modifier: [id number] <+> 1 Patient Out of Preop Finalized By: Buzz Lew, Rn Document Signatures Signed By: Buzz Lew Rn 12/18/21 11:16 Electronically signed by Yaneth [facility] Conversion Leather Currier Cerner at 03/17/2023 9:10 PM CDT documented in this encounter Plan of Treatment Not on file documented as of this encounter Visit Diagnoses Not on filedocumented in this encounter Care Teams Organic Chemistry Teacher Relationship Specialty Start Date End Date Avel Traore MD [address] [place] [address] PCP - General General Internal Medicine 09/21/24 documented as of this encounter
--- OUTSIDE RECORDS SUMMARY | 2025-06-19 08:34 | XMS_ITS | Encounter Summary ---
Author Organization [employer] ([place], [place], [place], [place]) Address [address] [place] [address] Care Team Providers Care Iron Carrier Name Role Phone Avel Traore MD Primary Care Provider [phone] Encounter Details Date Type Department Care Team (Late st Contact Info) Description 12/18/2021 Transcribed Document [facility] [place] Family Medicine [address] [place] [address] ProviderPhil MD [address] [place] [address] Social History Tobacco Use Types [...] Date Hua rded Speak language other than Gabonese at home Not on file 12/17/2023 Want [...] Conversion Note - Historical ProviderMD - 12/18/2021 9:01 AM NUT SHELLER Patient: DALLAS BRODY Age: 71 years Sex: Male : 1950 Associated Diagnoses: None Author: COMER, BRAEDEN Peña APRN Chief Complaint pleasant 71 yo male here for R brachiocephalic AVF with Dr. Mcdonald. pt has been doing dialysis since September using sanam cath, needs permanent access. Review of Systems Constitutional: obese. Eye: Glasses. Ear/Nose/Mouth/Throat: Negative. Respiratory: Negative. Cardiovascular: pacemaker and has PVCs. . Gastrointestinal: Negative. Genitourinary: Negative. Hematology/Lymphatics: Negative. Endocrine: Negative. Immunologic: Negative. Musculoskeletal: Negative. Integumentary: Negative. Neurologic: Negative. Psychiatric: Negative. All other systems are negative Health Status Allergies: Allergic Reactions (Selected) Severity Not Documented LevoFLOXacin- Couldn't move, severe reaction., Allergies (1) Active Reaction levoFLOXacin couldn't move, severe reaction Current medications: (Selected) Inpatient Medications Ordered Ancef: 2 Gram, 50 mL, 100 mL/Hr, IV Piggyback, PREOP Normal Saline 500 mL: 20 mL/Hr, IntraVENous famotidine: 20 mg, Oral, 1-Time lidocaine 1% preservative-free injectable solution: 0.5 mL, IntraDermal, 1-Time Documented Medications Documented Eliquis 2.5 mg oral tablet: 1 Tab, Oral, [id number], Take this until 06-19-2019, then go back to your 5mg twice a day dose., 0 Refill(s) FLUoxetine 20 mg oral capsule: [...] tablet 2.5 mg = 1 Tab, Oral, [id number] FLUoxetine 20 mg oral capsule 20 mg = 1 Cap, Oral, Daily levothyroxine 88 mcg (0.088 mg) oral tablet 88 mcg = 1 Tab, Oral, Daily Metoprolol Succinate ER 25 mg oral tablet, extended release 25 mg = 1 Tab, Oral, Daily Osteo Bi-Flex 2 Tab, Oral, Daily Vitamin B12 2,500 mcg, Oral, Daily , Medications (4) Active Scheduled: (3) ceFAZolin/D5w 2 Gram 50 mL, IV Piggyback, PREOP famotidine 20 mg tab 20 mg 1 Tab, Oral, 1-Time lidocaine 1% *PF* inj 2 mL 0.5 mL, IntraDermal, 1-Time Continuous: (1) NaCl 0.9% 500 mL 500 mL, IntraVENous, 20 mL/Hr PRN: (0) Problem list: All Problems Sleep apnea / SNOMED CT 450130436 / Confirmed Hypothyroid / SNOMED CT 24989907 / Confirmed Hyperlipidemia / SNOMED CT 16985521 / Confirmed HTN - Hypertension / SNOMED CT 1302065618 / Confirmed H/O syncope / SNOMED CT 5157826069 / Confirmed History of obstructive sleep apnea / IMO [id number] / Confirmed High blood pressure / SNOMED CT 07757574 / Confirmed ESRD on hemodialysis MWF / SNOMED CT 0958198188 / Confirmed CHF (congestive heart failure) / SNOMED CT 13069000 / Confirmed Chronic kidney disease (CKD) / SNOMED CT 4651641085 / Confirmed Beta thalassemia / SNOMED CT 819770643 / Confirmed Atrial fibrillation / SNOMED CT 35897834 / Confirmed, Active Problems (12) Atrial fibrillation Beta thalassemia CHF (congestive heart failure) ESRD on hemodialysis MWF H/O syncope History of obstructive sleep apnea HTN - Hypertension Hyperlipidemia Hypothyroid Sleep apnea Histories Past Medical History: Active HTN - Hypertension (0653951349) Family History: Entire family history is negative. Procedure history: eyelid surgery bilateral. sinus polyps. throat surgery for sleep apnea. left rotator cuff repair. Vasectomy ([id number]). dialysis catheter placement. Physical Examination VS/Measurements Vital Signs/Vital Measures 12/18/2021 8:00 EST Systolic Blood Pressure 150 mmHg HI Diastolic Blood Pressure 79 mmHg Temperature Source Temporal artery scanning Temperature Mode Fahrenheit Temperature, Fahrenheit 98.1 Deg F Clinical Temperature, C 36.7 Deg C Heart Rate Monitored 74 bpm Respiratory Rate 18 Breaths/Min Oxygen Saturation 97 % Oxygen Therapy Mode Room air , Vitals Signs (last 24 hrs) Last Charted Minimum Maximum Temp 98.1 (DEC 18 08:00) 98.1 (DEC 18 08:00) 98.1 (DEC 18 08:00) Mon HR 74 (DEC 18 08:00) 74 (DEC 18 08:00) 74 (DEC 18 08:00) Resp Rate 18 (DEC 18 08:00) 18 (DEC 18 08:00) 18 (DEC 18 08:00) SBP H 150 (DEC 18 08:00) H 150 (DEC 18 08:00) H 150 (DEC 18 08:00) DBP 79 (DEC 18 08:00) 79 (DEC 18 08:00) 79 (DEC 18 08:00) SpO2 97 (DEC 18 08:00) 97 (DEC 18 08:00) 97 (DEC 18 08:00) , Measurements from flowsheet : Measurements 12/17/2021 13:48 EST Height Source Measured Height Entry Format [place] Height/Length, SENEGALESE (ft) 0 ft Height/Length SENEGALESE 66 Inch CLINICALHEIGHT 167.64 cm [place] Body Weight 63 kg Weight Source Standing scale Weight Entry Format [place] Weight Gabonese lb 188 lb Weight Gabonese oz 2 oz CLINICALWEIGHT 85.51 kg Body Surface Area (BSA) 1.95 m2 Body Mass Index 30.4 kg/m2 HI General: Alert and oriented, No acute distress, obese. Eye: Extraocular movements are intact, glasses. HENT: Normocephalic, Normal hearing. Respiratory: Lungs are clear to auscultation, Respirations are non-labored, R sanam cath. Cardiovascular: Normal rate, No murmur, No gallop, No edema, irregular beats, PVCs, noted. Musculoskeletal: Normal range of motion, Normal strength. Integumentary: Warm, Dry, Parks. Neurologic: Alert, Oriented. Psychiatric: Cooperative, Appropriate mood & affect. Review / Management Results review: No qualifying data available, Lab results: 12/18/2021 8:47 EST Potassium POC 4.1 mmol/L . Impression and Plan Diagnosis 1. ESRD on hemodialysis 2. BERNARDO 3. hx A fib 4. CHF 5. beta thalassemia 6. HTN 7. HLD 8. hypothyroidism . Condition: Stable. pt to proceed with surgery, DC home today Electronically signed by Interface, [facility] Conversion Piped Buttonhole Machine Operator Cerner at 03/17/2023 8:58 PM CDT documented in this encounter Plan of Treatment Not on file documented as of this encounter Visit Diagnoses Not on filedocumented in this encounter Care Teams Iron Carrier Relationship Specialty Start Date End Date Avel Traore MD [address] [place] [address] PCP - General General Internal Medicine 09/21/24 documented as of this encounter
--- OUTSIDE RECORDS SUMMARY | 2025-06-19 08:34 | XMS_ITS | Encounter Summary ---
Author Organization [employer] ([place], [place], [place], [place]) [facility] [address] [facility] [place] [address] Care Team Providers Care Drywall Application Supervisor Name Role Phone Avel Traore MD Primary Care Provider [phone] Encounter Details Date Type Department Care Team (Late st Contact Info) Description 06/20/2019 Transcribed Document [facility] [place] Family Medicine [facility] [address] ProviderPhil MD [address] [place] [id number] Social History Tobacco Use Types Packs/Day Years Used Date Smoking Tobacco: Never Assessed Sex and Gender Information Value Date Recorded Sex Assigned at Not on file Legal Sex Male 1:29 PM CDT Gender Identity Not on file Sexual Orientation Not on file documented as of this encounter Miscellaneous Notes * Cerner Conversion Note - Phil Singh MD - 06/20/2019 12:44 PM CDT Post Visit Phone Call Entered On: 06/20/2019 12:58 EDT Performed On: 06/20/2019 12:44 EDT by IVANNA VIZCARRA RN Post Visit Phone Call Post Visit Phone Call History : First call Emergency Room Visit Since DC : No Adequate Pain Control After Visit : No Surgical Site Free of Redness/Swelling/Drainage : Yes Symptoms of Fever : No Symptoms of Nausea or Vomiting : No Adequate Fluid Intake : Yes Food Intake, Post Visit : Good Mobility Progressing or Maintained as Expected : Yes Using Continuous Passive Motion Machine : N/A Discharge Instructions Understood : Yes Follow-Up Actions : None IVANNA VIZCARRA RN - 06/20/2019 12:44 EDT documented in this encounter Plan of Treatment Not on file documented as of this encounter Visit Diagnoses Not on filedocumented in this encounter Care Teams Drywall Application Supervisor Relationship Specialty Start Date End Date Avel Traore MD [address] [place] [address] PCP - General General Internal Medicine 09/21/24 documented as of this encounter
--- OUTSIDE RECORDS SUMMARY | 2025-06-19 08:34 | XMS_ITS | Encounter Summary ---
Author Organization [employer] ([place], [place], [place], [place]) Address [address] [place] [address] Care Team Providers Care Sausage Stuffer Name Role Phone Avel Traore MD Primary Care Provider [phone] Encounter Details Date Type Department Care Team (Late st Contact Info) Description 06/17/2019 Transcribed Document [facility] [place] [address] ProviderPhil MD [address] [place] [phone] Social History Tobacco Use Types Packs/Day Years Used Date Smoking Tobacco: Never Assessed Sex and Gender Information Value Date Recorded Sex Assigned at Not on file Legal Sex Male 1:29 PM CDT Gender Identity Not on file Sexual Orientation Not on file documented as of this encounter Miscellaneous Notes * Cerner Conversion Note - Phil Singh MD - 06/17/2019 5:30 PM CDT Final Discharge Planning Entered On: 06/17/2019 17:30 EDT Performed On: 06/17/2019 17:30 EDT by NEFT[place]I [place], Optical Assistant Final Discharge Planning Discharge Arrangements : Patient Post-Acute Information Patient Name: DALLAS BRODY Gender: Male : [birth year] Age: 69 Years No Post-Acute Placement(s) Listed No Post-Acute Service(s) Listed No [place] Referral(s) Listed Important Medicare Message Reviewed With : Patient, Spouse Important Medicare Message Reviewed D/T : 06/17/2019 13:10 EDT Transportation Needs : Family/Friend Discharge To Care Management : Home/Residential/Nursing Home or Self Care -01 [place] Optical Assistant - 06/17/2019 17:30 EDT Final Narrative Note Final Narrative Note : Pt D/C home today. Talked w/ him, he denies any needs. NEFT[place]I [place] Optical Assistant - 06/17/2019 17:30 EDT Electronically signed by Yaneth [facility] Conversion Paramedic Instructor Cerner at 03/17/2023 8:52 PM CDT documented in this encounter Plan of Treatment Not on file documented as of this encounter Visit Diagnoses Not on filedocumented in this encounter Care Teams Sausage Stuffer Relationship Specialty Start Date End Date Avel Traore MD [address] [place], [place] [id number] PCP - General General Internal Medicine 09/21/24 documented as of this encounter
--- OUTSIDE RECORDS SUMMARY | 2025-06-19 08:34 | XMS_ITS | Encounter Summary ---
Author Organization [employer] ([place], [place], [place], [place]) Address [address] [place] [address] Care Team Providers Care Block Handler Name Role Phone Avel Traore MD Primary Care Provider [phone] Encounter Details Date Type Department Care Team (Late st Contact Info) Description 06/17/2019 Transcribed Document [facility] [place] Family Medicine [facility] [place] [address] Phil Singh MD [address] [place] [address] Social History Tobacco Use Types Packs/Day Years Used Date Smoking Tobacco: Never Assessed Sex and Gender Information Value Date Recorded Sex Assigned at Not on file Legal Sex Male 1:29 PM CDT Gender Identity Not on file Sexual Orientation Not on file documented as of this encounter Miscellaneous Notes * Cerner Conversion Note - Phil Singh MD - 06/17/2019 1:46 PM CDT Patient Education Materials Follows: Biventricular Pacemaker Implantation A biventricular pacemaker implantation is a procedure to place (implant) a pacemaker into both of the lower chambers (ventricles) of the heart. A pacemaker is a small, battery-powered device that helps control the heartbeat. If the heart beats irregularly or too slowly (bradycardia), the pacemaker will pace the heart so that it beats at a normal rate or a programmed rate. The parts of a biventricular pacemaker include: ??? The pulse generator. The pulse generator contains a small computer and a memory system that is programmed to keep the heart beating at a certain rate. The pulse generator also produces the electrical signal that triggers the heart to beat. This is implanted under the skin of the upper chest, near the collarbone. ??? Wires (leads). The leads are placed in the left and right ventricles of the heart. The leads are connected to the pulse generator. They transmit electrical pulses from the pulse generator to the heart. This procedure may be done to treat: ??? Bradycardia. ??? Symptoms of severe heart failure, such as shortness of breath (dyspnea). ??? Loss of consciousness that happens repeatedly (syncope) because of an irregular heart rate. Tell a health care provider about: ??? Any allergies you have. ??? All medicines you are taking, including vitamins, herbs, eye drops, creams, and ojax-xam-huezzcq medicines. ??? Any problems you or family members have had with anesthetic medicines. ??? Any blood disorders you have. ??? Any surgeries you have had. ??? Any medical conditions you have. ??? Whether you are or may be . What are the risks? Generally, this is a safe procedure. However, problems may occur, including: ??? Infection. ??? Bleeding. ??? Allergic reactions to medicines or dyes. ??? Damage to other structures or organs, such as your blood vessels, lungs, or heart. ??? Failure of the pacemaker to improve your condition. What happens before the procedure? Ask your health care provider about: ? Changing or stopping your regular medicines. This is especially important if you are taking diabetes medicines or blood thinners. ? Taking medicines such as aspirin and ibuprofen. These medicines can thin your blood. Do not take these medicines before your procedure if your health care provider instructs you not to. ??? Follow instructions from your health care provider about eating or drinking restrictions. ??? Do not use any tobacco products for at least 24 hours before your procedure. This includes cigarettes, chewing tobacco, or e-cigarettes. ??? Ask your health care provider how your surgical site will be marked or identified. ??? You may be given antibiotic medicine to help prevent infection. ??? You may have tests, including: ? Blood tests. ? Chest X-rays. ??? Plan to have someone take you home after the procedure. ??? If you go home right after the procedure, plan to have someone with you for 24 hours. What happens during the procedure? To reduce your risk of infection: ? Your health care team will wash or sanitize their hands. ? Your skin will be washed with soap. ? Hair may be removed from your surgical area. ??? An IV tube will be inserted into one of your veins. ??? You will be given one or more of the following: ? A medicine to help you relax (sedative). ? A medicine to make you fall asleep (general anesthetic). ? A medicine that is injected into your spine to numb the area below and slightly above the injection site (spinal anesthetic). ? A medicine that is injected into an area of your body to numb everything below the injection site (regional anesthetic). ??? An incision will be made in your upper chest, near your heart. ??? The leads will be guided into your incision, through your blood vessels, and into your ventricles. Your surgeon will use an X-ray machine (fluoroscope) to guide the leads into your heart. ??? The leads will be attached to your heart muscles and to the pulse generator. ??? The leads will be tested to make sure that they work correctly. ??? The pulse generator will be implanted under your skin, near your incision. ??? Your incision will be closed with stitches (sutures), skin glue, or adhesive tape. ??? A bandage (dressing) will be placed over your incision. The procedure may vary among health care providers and hospitals. What happens after the procedure? Your blood pressure, heart rate, breathing rate, and blood oxygen level will be monitored often until the medicines you were given have worn off. ??? You may continue to receive fluids and medicines through an IV tube. ??? You will have some pain. Pain medicines will be available to help you. ??? You will have a chest X-ray done. This is to make sure that your pacemaker is in the right place. ??? You may have to wear compression stockings. These stockings help to prevent blood clots and reduce swelling in your legs. ??? You will be given a pacemaker identification card. This card lists the implant date, device model, and publicity person of your pacemaker. ??? Do not drive for 24 hours if you received a sedative. This information is not intended to replace advice given to you by your health care provider. Make sure you discuss any questions you have with your health care provider. Document Released: 08/09/2013 Document Revised: 04/22/2017 Document Reviewed: 08/09/2016 Elsevier Interactive Patient Education ? 2018 [employer] documented in this encounter Plan of Treatment Not on file documented as of this encounter Visit Diagnoses Not on filedocumented in this encounter Care Teams Block Handler Relationship Specialty Start Date End Date Avel Traore MD [address] [place] [address] [place] [address] PCP - General General Internal Medicine 09/21/24 documented as of this encounter
--- OUTSIDE RECORDS SUMMARY | 2025-06-19 08:34 | XMS_ITS | Encounter Summary ---
Author Organization [employer] ([place], [place], [place], [place]) Address [address] [place] [address] Care Team Providers Care Food And Beverage Outlets Manager Name Role Phone Avel Traore MD Primary Care Provider [phone] Encounter Details Date Type Department Care Team (Late st Contact Info) Description 06/16/2019 Transcribed Document [facility] [place] Family Medicine [facility] [place] [address] ProviderPhil MD [address] [place] [address] Social History Tobacco Use Types Packs/Day Years Used Date Smoking Tobacco: Never Assessed Sex and Gender Information Value Date Recorded Sex Assigned at Not on file Legal Sex Male 1:29 PM CDT Gender Identity Not on file Sexual Orientation Not on file documented as of this encounter Miscellaneous Notes * Cerner Conversion Note - Phli Singh MD - 06/16/2019 10:18 AM CDT Patient: DALLAS BRODY Age: 69 Years Sex: Male : 1950 Subjective Patient doing well going for PPM placement today. Vital Signs T: 36.4 ??C TMIN: 36.4 ??C TMAX: 36.7 ??C HR: 54(Monitored) RR: 16 BP: 146/71 BP: 137/44(Sitting) BP: 142/51(Standing) BP: 129/58(Supine) SpO2: 96% HT: 170.18 cm WT: 80.91 kg BMI: 29.3 Oxygen Settings (Last) Oxygen Therapy Mode: Room air (06/16/19 07:00:00 EDT) Intake & Output Totals Last 24 Hours (7a-7a) Input Total: 0 mL Output Total: 100 mL Balance: -100 mL Physical Exam General: Alert and oriented, no acute distress. Respiratory: Respirations are non-labored, Breath sounds are equal, Symmetrical chest wall expansion, No chest wall tenderness. Cardiovascular: Normal rate, Regular rhythm, No murmur. Gastrointestinal: Soft, Non-distended, Normal bowel sounds, No organomegaly, Musculoskeletal: Normal strength, no deformity, active arthritis or joint swelling. Neurologic: Alert, No focal deficits, CN grossly intact. Assessment/Plan Syncope Likely secondary to bradycardia, on multiple HR control medications. Rest of the work up unremarkable. Bradycardia HR in 40s, on atenolol, clonidine and flecanide. Recent ablation, two days ago. Getting PPM today. likely DC in AM. Hypertension Continue meds, except for BBs. Anemia Acute on chronic with ? beta thalessemia history with Hb at 9.2, continue to monitor. CKD stage 3 His creatinine is at baseline Hypothyroidism Continue synthroid and his recent TSH is normal. Sleep apnea Contiue home Bipap VTE Prophylaxis - Medical Enoxaparin 40 mg, SubCutaneous, Inj, 1-Time, Routine, Start 06/15/19 18:00:00 EDT, Stop 06/15/19 18:00:00 EDT (MIKE LEDESMA) Medications amLODIPine, 5 mg= 1 Tab, Oral, Daily atenolol, 25 mg= 1 Tab, Oral, BID Bactroban 2% nasal ointment, 1 Application, Nostrils Both, BID FLUoxetine, 10 mg= 1 Cap, Oral, Daily Lovenox, 40 mg= 0.4 mL, SubCutaneous, 1-Time Sodium Chloride 0.9% intravenous solution 1,000 mL, 1000 mL, IntraVENous Synthroid, 88 mcg= 1 Tab, Oral, Daily Tylenol, 650 mg= 2 Tab, Oral, Q4H, PRN Lab Results Test Name Test Result Date/Time Sodium Level 144 mmol/L 06/16/2019 05:46 EDT Sodium Level 147 mmol/L (High) 06/15/2019 13:35 EDT Potassium Level 4.3 mmol/L 06/16/2019 05:46 EDT Potassium Level 4.4 mmol/L 06/15/2019 13:35 EDT Chloride Level 116 mmol/L (High) 06/16/2019 05:46 EDT Chloride Level 117 mmol/L (High) 06/15/2019 13:35 EDT Carbon Dioxide Level 26 mmol/L 06/16/2019 05:46 EDT Carbon Dioxide Level 23 mmol/L 06/15/2019 13:35 EDT Anion Gap 6 (Low) 06/16/2019 05:46 EDT Anion Gap 11 06/15/2019 13:35 EDT Glucose Level 87 mg/dL 06/16/2019 05:46 EDT Glucose Level 91 mg/dL 06/15/2019 13:35 EDT Blood Urea Nitrogen 26 mg/dL (High) 06/16/2019 05:46 EDT Blood Urea Nitrogen 22 mg/dL 06/15/2019 13:35 EDT Creatinine Level 1.50 mg/dL (High) 06/16/2019 05:46 EDT Creatinine Level 1.40 mg/dL (High) 06/15/2019 13:35 EDT eGFR 56 mL/min/1.73m2 (Low) 06/16/2019 05:46 EDT eGFR >60 mL/min/1.73m2 06/15/2019 13:35 EDT eGFR NonAfrican 46 mL/min/1.73m2 (Low) 06/16/2019 05:46 EDT eGFR NonAfrican 50 mL/min/1.73m2 (Low) 06/15/2019 13:35 EDT Bun/Creatinine 17.3 06/16/2019 05:46 EDT Bun/Creatinine 15.7 06/15/2019 13:35 EDT Calcium Level 8.3 mg/dL (Low) 06/16/2019 05:46 EDT Calcium Level 7.4 mg/dL (Low) 06/15/2019 13:35 EDT Protein Total 5.8 Gram/dL (Low) 06/16/2019 05:46 EDT Protein Total 5.6 Gram/dL (Low) 06/15/2019 13:35 EDT Albumin Level 2.8 Gram/dL (Low) 06/16/2019 05:46 EDT Albumin Level 2.6 Gram/dL (Low) 06/15/2019 13:35 EDT Globulin 3.0 Gram/dL 06/16/2019 05:46 EDT Globulin 3.0 Gram/dL 06/15/2019 13:35 EDT A/G Ratio 0.9 (Low) 06/16/2019 05:46 EDT A/G Ratio 0.9 (Low) 06/15/2019 13:35 EDT Bilirubin Total 0.5 mg/dL 06/16/2019 05:46 EDT Bilirubin Total 0.5 mg/dL 06/15/2019 13:35 EDT Alk Phos 53 Units/Liter 06/16/2019 05:46 EDT Alk Phos 48 Units/Liter 06/15/2019 13:35 EDT AST 21 Units/Liter 06/16/2019 05:46 EDT AST 33 Units/Liter 06/15/2019 13:35 EDT ALT 18 Units/Liter 06/16/2019 05:46 EDT ALT 15 Units/Liter (Low) 06/15/2019 13:35 EDT Magnesium Level 2.2 mg/dL 06/16/2019 05:46 EDT Magnesium Level 1.8 mg/dL 06/15/2019 13:35 EDT Lipase Level 105 Units/Liter 06/15/2019 13:35 EDT Troponin I Ultra 1.330 ng/mL (Critical) 06/15/2019 13:35 EDT ProBNP 1986 pg/mL (High) 06/15/2019 13:35 EDT WBC 5.4 K/uL 06/16/2019 05:46 EDT WBC 6.2 K/uL 06/15/2019 13:35 EDT RBC 4.84 Million/uL 06/16/2019 05:46 EDT RBC 4.78 Million/uL 06/15/2019 13:35 EDT Hgb 9.2 g/dL (Low) 06/16/2019 05:46 EDT Hgb 9.6 g/dL (Low) 06/15/2019 18:04 EDT Hgb 9.0 g/dL (Low) 06/15/2019 13:35 EDT Hct 31.2 % (Low) 06/16/2019 05:46 EDT Hct 32.2 % (Low) 06/15/2019 18:04 EDT Hct 30.8 % (Low) 06/15/2019 13:35 EDT MCV 64.5 fL (Low) 06/16/2019 05:46 EDT MCV 64.4 fL (Low) 06/15/2019 13:35 EDT MCH <20.0 pg (Low) 06/16/2019 05:46 EDT MCH <20.0 pg (Low) 06/15/2019 13:35 EDT MCHC 29.5 Gram/dL (Low) 06/16/2019 05:46 EDT MCHC 29.2 Gram/dL (Low) 06/15/2019 13:35 EDT Platelet Count 143 K/uL (Low) 06/16/2019 05:46 EDT Platelet Count 140 K/uL (Low) 06/15/2019 13:35 EDT MPV 10.6 fL 06/16/2019 05:46 EDT MPV 10.1 fL 06/15/2019 13:35 EDT RDW 15.9 % (High) 06/16/2019 05:46 EDT RDW 16.0 % (High) 06/15/2019 13:35 EDT Neut % 58.2 % 06/16/2019 05:46 EDT Neut % 61.1 % 06/15/2019 13:35 EDT Neut # 3.14 K/uL 06/16/2019 05:46 EDT Neut # 3.77 K/uL 06/15/2019 13:35 EDT Lymph % 25.8 % 06/16/2019 05:46 EDT Lymph % 24.8 % 06/15/2019 13:35 EDT Lymph # 1.39 x10(3)/uL 06/16/2019 05:46 EDT Lymph # 1.53 x10(3)/uL 06/15/2019 13:35 EDT [place] % 12.4 % (High) 06/16/2019 05:46 EDT [place] % 11.5 % (High) 06/15/2019 13:35 EDT [place] # 0.67 K/uL 06/16/2019 05:46 EDT [place] # 0.71 K/uL 06/15/2019 13:35 EDT Eos % 2.8 % 06/16/2019 05:46 EDT Eos % 1.8 % 06/15/2019 13:35 EDT Eos # 0.15 x10(3)/uL 06/16/2019 05:46 EDT Eos # 0.11 x10(3)/uL 06/15/2019 13:35 EDT Baso % 0.4 % 06/16/2019 05:46 EDT Baso % 0.3 % 06/15/2019 13:35 EDT Baso # 0.02 x10(3)/uL 06/16/2019 05:46 EDT Baso # 0.02 x10(3)/uL 06/15/2019 13:35 EDT RBC Morphology Abnormal 06/16/2019 05:46 EDT RBC Morphology Abnormal 06/15/2019 13:35 EDT Poikilocytosis 1+ (Abnormal) 06/16/2019 05:46 EDT Hypochromia 1+ (Abnormal) 06/15/2019 13:35 EDT Gm Cells 1+ (Abnormal) 06/16/2019 05:46 EDT Target Cells 1+ (Abnormal) 06/16/2019 05:46 EDT Ovalocytes 1+ (Abnormal) 06/16/2019 05:46 EDT Microcytosis 2+ (Abnormal) 06/16/2019 05:46 EDT Microcytosis 1+ (Abnormal) 06/15/2019 13:[address] Estimate Decreased (Abnormal) 06/16/2019 05:[address] Estimate Decreased (Abnormal) 06/15/2019 13:35 EDT Reticulocyte 1.10 % 06/15/2019 16:06 EDT Slide Review Technologist 06/16/2019 05:46 EDT Slide Review Technologist 06/15/2019 13:35 EDT IG# 0.02 x10(3)/uL 06/16/2019 05:46 EDT IG# 0.03 x10(3)/uL 06/15/2019 13:35 EDT IG% 0.40 % 06/16/2019 05:46 EDT IG% 0.50 % 06/15/2019 13:35 EDT PT 10.9 Second(s) 06/15/2019 13:35 EDT INR 1.0 06/15/2019 13:35 EDT PTT 28.0 Second(s) 06/15/2019 13:35 EDT TSH 2.300 mcInt Units/mL 06/15/2019 13:35 EDT Iron Level 56 mcg/dL (Low) 06/15/2019 16:06 EDT Ferritin Level 47.0 ng/mL 06/15/2019 16:06 EDT TIBC 315.0 mcg/dL 06/15/2019 16:06 EDT Electronically signed by [facility], [facility] Conversion Event Planning Intern Cerner at 03/17/2023 9:11 PM CDT documented in this encounter Plan of Treatment Not on file documented as of this encounter Visit Diagnoses Not on filedocumented in this encounter Care Teams Food And Beverage Outlets Manager Relationship Specialty Start Date End Date Avel Traore MD [address] [place], [place] [id number] PCP - General General Internal Medicine 09/21/24 documented as of this encounter
--- OUTSIDE RECORDS SUMMARY | 2025-06-19 08:34 | XMS_ITS | Encounter Summary ---
Author Organization [employer] ([place], [place], [place], [place]) Address [address] [place] [address] Care Team Providers Care Pigment Making Supervisor Name Role Phone Avel Traore MD Primary Care Provider [phone] Encounter Details Date Type Department Care Team (Late st Contact Info) Description 06/16/2019 Transcribed Document [facility] [place] Family Medicine [facility] [place] [address] ProviderPhil MD [address] [place] [address] Social History Tobacco Use Types Packs/Day Years Used Date Smoking Tobacco: Never Assessed Sex and Gender Information Value Date Recorded Sex Assigned at Not on file Legal Sex Male 1:29 PM CDT Gender Identity Not on file Sexual Orientation Not on file documented as of this encounter Miscellaneous Notes * Cerner Conversion Note - Phil Singh MD - 06/16/2019 5:00 PM CDT Chart Check - Review Order Profile Entered On: 06/16/2019 18:32 EDT Performed On: 06/16/2019 17:00 EDT by Karen Gimenez, RN Chart Check Powerplans Initiated/Discontinued as Appropriate : Yes All Active Orders Reviewed : Yes Karen Gimenez RN - 06/16/2019 18:32 EDT Electronically signed by [facility] Conversion Glass Artist Ace at 03/17/2023 8:58 PM CDT documented in this encounter Plan of Treatment Not on file documented as of this encounter Visit Diagnoses Not on filedocumented in this encounter Care Teams Pigment Making Supervisor Relationship Specialty Start Date End Date Avel Traore MD [address] [place] [address] PCP - General General Internal Medicine 09/21/24 documented as of this encounter
--- OUTSIDE RECORDS SUMMARY | 2025-06-19 08:34 | XMS_ITS | Encounter Summary ---
Author Organization [employer] ([place], [place], [place], [place]) Address [address] [place] [address] Care Team Providers Care Handle Sander Operator Name Role Phone Avel Traore MD Primary Care Provider [phone] Encounter Details Date Type Department Care Team (Late st Contact Info) Description 06/16/2019 Transcribed Document [facility] [place] [facility] [place] [address] ProviderPhil MD [address] [place] [address] Social History Tobacco Use Types Packs/Day Years Used Date Smoking Tobacco: Never Assessed Sex and Gender Information Value Date Recorded Sex Assigned at Not on file Legal Sex Male 1:29 PM CDT Gender Identity Not on file Sexual Orientation Not on file documented as of this encounter Miscellaneous Notes * Cerner Conversion Note - Phil Singh MD - 06/16/2019 9:07 PM CDT DATE OF STUDY: 06/16/2019 ADDENDUM TO PACEMAKER IMPLANT: Patient received conscious sedation under my direction with fentanyl and Versed for approximately one hour duration. There were no complications. Gianfranco Marquez M.D. Dict: 06/16/2019 21:07:04 Trans: 06/16/2019 23:48:09 CC1: Gianfranco Marquez M.D. Electronically signed by Yaneth [facility] Conversion Insole Department Worker Cerner at 03/17/2023 8:59 PM CDT documented in this encounter Plan of Treatment Not on file documented as of this encounter Visit Diagnoses Not on filedocumented in this encounter Care Teams Handle Sander Operator Relationship Specialty Start Date End Date Avel Traore MD [address] [place] [address] PCP - General General Internal Medicine 09/21/24 documented as of this encounter
--- OUTSIDE RECORDS SUMMARY | 2025-06-19 08:34 | XMS_ITS | Encounter Summary ---
Author Organization [employer] ([place], [place], [place], [place]) Address [address] [place] [address] Care Team Providers Care Filter Press Operator Name Role Phone Avel Traore MD Primary Care Provider [phone] Encounter Details Date Type Department Care Team (Late st Contact Info) Description 06/16/2019 Transcribed Document [facility] [place] Family Medicine [place] [address] ProviderPhil MD [address] [place] [address] Social History Tobacco Use Types Packs/Day Years Used Date Smoking Tobacco: Never Assessed Sex and Gender Information Value Date Recorded Sex Assigned at Not on file Legal Sex Male 1:29 PM CDT Gender Identity Not on file Sexual Orientation Not on file documented as of this encounter Miscellaneous Notes * Cerner Conversion Note - Phil ProviderMD - 06/16/2019 2:00 AM CDT Reed Polisher Details Entered On: 06/16/2019 4:42 EDT Performed On: 06/16/2019 2:00 EDT by Jessie Ordoñez RN Order Details Transport Mode Order Detail : Wheelchair Isolation Precautions Order Detail : Standard Precautions Order Detail : N/A IV Order Detail : 1 Nurse Collect Order Detail : 0 Lift/Transfer : Minimal Central Line Order Detail : No Room Service : Appropriate Arterial Line : No Jessie Ordoñez RN - 06/16/2019 4:42 EDT documented in this encounter Plan of Treatment Not on file documented as of this encounter Visit Diagnoses Not on filedocumented in this encounter Care Teams Filter Press Operator Relationship Specialty Start Date End Date Avel Traore MD [address] [place] [address] PCP - General General Internal Medicine 09/21/24 documented as of this encounter
--- OUTSIDE RECORDS SUMMARY | 2025-06-19 08:34 | XMS_ITS | Encounter Summary ---
Author Organization [employer] ([place], [place], [place], [place]) Address [address] [place] [address] Care Team Providers Care Headstart Teacher Name Role Phone Avel Traore MD Primary Care Provider [phone] Encounter Details Date Type Department Care Team (Late st Contact Info) Description 2022 Transcribed Document [facility] [place] Family Medicine [address] [place] [address] ProviderPhil MD [address] [place] [address] Social History Tobacco Use Types [...] Date Hua rded Speak language other than Pakistani at home Not on file 12/17/2023 Want [...] Conversion Note - Phil ProviderMD - 2022 8:34 AM CUSTOMER TECHNICAL SERVICES MANAGER [facility] Main OR PostOp Summary Primary Physician: SERGIO LLANES MD-SUR Finalized Date/Time: 02/05/22 10:31:15 Pt. Name: SAHRA BRODY D.O.B./Sex: 1950 Male Med Rec #: [id number] Physician: SERGIO LLANES MD-SUR Financial #: [id number] Pt. Type: O Room/Bed: Admit/Disch: 02/05/22 06:43:00 - Institution: [facility] Main OR PostOp Case Times Entry 1 In PACU II 02/05/22 09:20:00 Ready for PACU II 02/05/22 10:29:00 Discharge Discharge from PACU 02/05/22 10:29:00 II Last Modified By: IVANNA ANDRADE RN 02/05/22 10:31:11 [facility] Main OR PostOp Case Times Audit 02/05/22 10:31:11 Disassembler: [id number] Modifier: [id number] <+> 1 Ready for PACU II Discharge <+> 1 Discharge from PACU II Finalized By: IVANNA ANDARDE RN Document Signatures Signed By: IVANNA ANDRADE RN 02/05/22 10:31 documented in this encounter Plan of Treatment Not on file documented as of this encounter Visit Diagnoses Not on filedocumented in this encounter Care Teams Headstart Teacher Relationship Specialty Start Date End Date Avel Traore MD [address] [place] [address] [place] [address] PCP - General General Internal Medicine 09/21/24 documented as of this encounter
--- OUTSIDE RECORDS SUMMARY | 2025-06-19 08:34 | XMS_ITS | Encounter Summary ---
Author Organization [facility] ([place], [place], [place], [place]) Address [address] [place] [address] Care Team Providers Care Cafeteria Table Attendant Name Role Phone Avel Traore MD Primary Care Provider Encounter Details Date Type Department Care Team (Late st Contact Info) Description 06/16/2019 Transcribed Document [facility] [place] [facility] [place] [address] ProviderPhil MD [facility] [place] [address] Social History Tobacco Use Types Packs/Day Years Used Date Smoking Tobacco: Never Assessed Sex and Gender Information Value Date Recorded Sex Assigned at Not on file Legal Sex Male 1:29 PM CDT Gender Identity Not on file Sexual Orientation Not on file documented as of this encounter Miscellaneous Notes * Cerner Conversion Note - Phil Singh MD - 06/16/2019 1:21 PM CDT Initial Discharge Planning Entered On: 06/16/2019 13:25 EDT Performed On: 06/16/2019 13:21 EDT by MARIANNA GALARZA Home Theater Experience Expert-911 Emergency Dispatcher Initial Assessment I Previously Documented Living Environment : No qualifying data available. Living Situation : Home Patient Lives With : Spouse Emergency Contact #1 : Neetu Slaughter Emergency Contact #1 Emergency Contact #1 Relationship : spouse Emergency Contact #2 : na Emergency Contact #2 Phone Number : na Emergency Contact #2 Relationship : na Enter Doctors Name : Dr. Nicholas Torres Does Patient have PCP Listed? : Yes Legal Guardian : No MARIANNA GALARZA Home Theater Experience Expert-911 Emergency Dispatcher - 06/16/2019 13:21 EDT Initial Assessment II Sensory and Motor Deficits : None Current Home Treatments and Equipment : BiPAP Does the Patient have a Floor to SNF Benefit? : Yes MARIANNA GALARZA Home Theater Experience Expert-911 Emergency Dispatcher - 06/16/2019 13:21 EDT Discharge Needs I Anticipated Discharge To, CM : Home independently Current Home Treatment/Equipment : Current Home Treatment/Equipment No qualifying data available. Post Acute/Home Treatments : None MARIANNA GALARZA Home Theater Experience Expert-911 Emergency Dispatcher - 06/16/2019 13:21 EDT Discharge Needs II Professional Skilled Services : Professional Skilled Services No qualifying data available. Needs Assistance with Transportation : No Discharge Options Discussed with Patient : Home Health MARIANNA GALARZA Home Theater Experience Expert-911 Emergency Dispatcher - 06/16/2019 13:21 EDT Narrative Note Narrative Note : Patient is a low readmission risk of 37. Patient denied ever having HH or SNF services. He reported that he felt good when discharged yesterday and didn't feel that he need any services. Patient reported that he is independent with ADL's and is very active. Patient reported that he does not feel he needs services at discharge. CM will continue to follow for discharge needs. MARIANNA GALARZA Home Theater Experience Expert-911 Emergency Dispatcher - 06/16/2019 13:21 EDT documented in this encounter Plan of Treatment Not on file documented as of this encounter Visit Diagnoses Not on filedocumented in this encounter Care Teams Cafeteria Table Attendant Relationship Specialty Start Date End Date Avel Traore MD [address] [place] [address] PCP - General General Internal Medicine 09/21/24 documented as of this encounter
--- OUTSIDE RECORDS SUMMARY | 2025-06-19 08:34 | XMS_ITS | Encounter Summary ---
Author Organization [employer] ([place], [place], [place], [place]) Address [address] [place] [address] Care Team Providers Care Gauger Chief Delivery Name Role Phone Avel Traore MD Primary Care Provider [phone] Encounter Details Date Type Department Care Team (Late st Contact Info) Description 12/18/2021 Transcribed Document [facility] [place] [address] [place] [address] ProviderPhil MD [address] [place] [address] Social History Tobacco Use Types [...] Conversion Note - Historical ProviderMD - 12/18/2021 10:32 AM HOSPITAL ORDERLY DATE OF PROCEDURE: 12/18/2021 SURGEON: Tirso Mcdonald MD PREOPERATIVE DIAGNOSIS: Chronic kidney disease stage 5. POSTOPERATIVE DIAGNOSIS: Chronic kidney disease stage 5. PROCEDURE PERFORMED: Right brachiocephalic AV fistula. BIRD KEEPER: MARLEN Mcgee. ANESTHESIA: LMAC. FINDINGS: Both the artery and vein were excellent. DESCRIPTION OF PROCEDURE: Using LMAC anesthesia, the patient was prepped and draped in sterile fashion. Sterile drape was used, and preoperative antibiotics were given. 1% lidocaine with epinephrine was used. Incision was made and carried down to identify the cephalic vein. It was isolated with division of tributaries using 3-0 silk tie and hemoclips. Brachioradialis aponeurosis was opened, the artery exposed and encircled with vessel loops. Systemic heparin was given. Vein was divided distally and gently dilated with heparinized saline. The artery was controlled with vessel loops, arteriotomy performed, and end-to-side anastomosis was constructed with 6-0 Prolene suture. Upon completion, palpable thrill was present. With good hemostasis, wound was closed with 3-0 Vicryl and 4-0 Monocryl. Sterile bandages were applied, and the patient was taken to Outpatient in good condition. /[id number] Tirso Mcdonald MD CPA/AQ / CPA / MODL /[id number] CC: [facility] documented in this encounter Plan of Treatment Not on file documented as of this encounter Visit Diagnoses Not on filedocumented in this encounter Care Teams Gauger Chief Delivery Relationship Specialty Start Date End Date Avel Traore MD [address] [place] [address] [place] [address] PCP - General General Internal Medicine 09/21/24 documented as of this encounter
--- OUTSIDE RECORDS SUMMARY | 2025-06-19 08:34 | XMS_ITS | Encounter Summary ---
Author Organization [email or web address] ([place], [place], [place], [place]) Address [address] [place] [address] Care Team Providers Care Wire Stretcher Name Role Phone Avel Traore MD Primary Care Provider [phone] Encounter Details Date Type Department Care Team (Late st Contact Info) Description 2022 Transcribed Document [facility] [place] [address] [place] [address] ProviderPhil MD [address] [place] [address] Social History Tobacco Use Types [...] Conversion Note - Phil ProviderMD - 2022 7:36 AM FRANCHISE SPECIALIST PAT Adult Entered On: 2022 7:38 EST Performed On: 2022 7:36 EST by Buzz Lew Rn Height and Weight, Clinical Dosing Height Source : Measured Height Entry Format : Colbert Height, Feet : 5 ft(Converted to: 152 cm, 60 Inch) Height, Inches : 6 Inch(Converted to: 0 ft 6 Inch, 15.24 cm) Clinical Height : 167.64 cm Weight Source : Standing scale Weight Entry Format : Colbert Clinical Dosing Weight : 85 kg Weight, Pounds : 187 lb Body Surface Area (BSA) : 1.95 m2 Body Mass Index : 30.2 kg/m2 (HI) [place] Body Weight : 63 kg Buzz Lew Rn - 2022 7:36 EST Health Histories Smoking Status : Never (less than 100 in lifetime; none in last 30 days) Smokeless Tobacco Status : Never Buzz Lew Rn - 2022 7:36 EST Social History (As Of: 2022 07:38:40 EST) Tobacco: Never (less than 100 in lifetime) Smoking Status. (Last Updated: 06/13/2019 06:47:25 EDT by DOMITILA VILLALTA RN) Alcohol: Alcohol Use History No. (Last Updated: 06/13/2019 06:47:30 EDT by DOMITILA VILLALTA RN) Substance Abuse: Drug Use Hx: No. Use in Last 12 Months: No. (Last Updated: 06/13/2019 06:47:34 EDT by DOMITILA VILLALTA RN) Infectious Disease History Does patient have symptoms of COVID-19? : No Has the Patient Been Tested for COVID-19 in the last 14 days? : Yes, Patient stated results Negative Where and When was COVID19 testing completed? : 02/04/22 Does the Patient state known exposure to a COVID-19 positive case in the last 14 days? : No Patient Vaccinated for COVID-19 : Fully vaccinated Buzz Lew Rn - 2022 7:36 EST Infectious Disease Risk Screening Grid Cough < 2 wks of unknown origin : NO Cough > 2 weeks : NO Blood in Sputum : NO Fever or self-reported Fever : NO Rash of unknown origin : NO Headache : NO Stiff neck : NO Night Sweats : NO Unexplained Weight Loss : NO Diarrhea (3 episode per day) : NO Buzz Lew Rn - 2022 7:36 EST Physical contact outside [place] in the last 30 days : No Hospitalized in Foreign Country : No Infectious Disease History : Chicken pox/Shingles, Influenza INF Disease TB Screening Calc : 0 INF Disease Recent Travel Calc : 0 Buzz Lew Rn - 2022 7:36 EST COVID19 PreProcedure Screening Is this an Emergent or Add on Procedure? : No Date PreProcedure COVID-19 test known? : Yes Date of PreProcedure COVID-19 : 02/04/2022 EST Has patient been isolated since the test : Yes Exposed to COVID19 symptoms since test? : No Buzz Lew Rn - 2022 7:36 EST Anesthesia/Transfusion History Family History of Anesthesia Reaction : Prior transfusion without reaction Blood Transfusion Acceptable to Patient : Yes Transfusion History : Prior anesthesia reaction Type of Anesthesia Reaction : Excessive nausea/vomiting Family History of Anesthesia Reaction : None Buzz Lew Rn - 2022 7:36 EST Advance Directive Patient has Advance Directive *Q : No, patient refuses Advance Directive information Buzz Lew Rn - 2022 7:36 EST [place] Suicide Severity Rating Scale (C-SSRS) CSSRS Past Month Wish to be : No CSSRS Past Month Suicidal Thoughts : No CSSRS Lifetime Suicide Behavior : No Suicide Severity Rating Score : 0 Suicide Severity Rating : No Additional Care Required at this time Buzz Lew Rn - 2022 7:36 EST Psychosocial History Do You Have a History of the Following? : Patient denies history Currently in Unsafe Situation : No Buzz Lew Rn - 2022 7:36 EST General Info Preferred Name : Jeremy Legal Guardian : No Support Person/Pt Rep Name : Neetu Slaughter- Support Person/Pt Rep Contact Information : [phone] Want Family/Rep/Phys Notified of Admit : No Emergency Contact #1 : Neetu Emergency Contact #1 Emergency Contact #1 Relationship : Emergency Contact #2 : , Emergency Contact #2 Phone Number : , Emergency Contact #2 Relationship : , Primary Language : Kosovan Communication Barrier : None Saloonkeeper Needed : No Buzz Lew Rn - 2022 7:36 EST Bill Scale Bill Sensory Perception : No impairment Bill Moisture : Rarely moist Bill Activity : Walks frequently Bill Mobility : No limitation Bill Nutrition : Excellent Bill Friction and Shear : No apparent problem Bill Score : 23 Buzz Lew Rn - 2022 7:36 EST Sleep Apnea Risk Assmt BiPAP/CPAP Ordered for Home Use : Yes Hx of Obstructive Sleep Apnea Diagnosis : Yes BiPAP/CPAP Used at Home : Yes Age over 50 Years Old : Yes Gender Male : Yes Sleep Apnea Risk Comment : Bipap Buzz Lew Rn - 2022 7:36 EST Electronically signed by Yaneth [facility] Conversion Zmt Operator Cerner at 03/17/2023 8:59 PM CDT documented in this encounter Plan of Treatment Not on file documented as of this encounter Visit Diagnoses Not on filedocumented in this encounter Care Teams Wire Stretcher Relationship Specialty Start Date End Date Avel Traore MD [address] [place] [address] [place] [address] PCP - General General Internal Medicine 09/21/24 documented as of this encounter
--- OUTSIDE RECORDS SUMMARY | 2025-06-19 08:34 | XMS_ITS | Encounter Summary ---
Author Organization [employer] ([place], [place], [place], [place]) Address [address] [place] [address] Care Team Providers Care Book Shelver Name Role Phone Avel Traore MD Primary Care Provider [phone] Encounter Details Date Type Department Care Team (Late st Contact Info) Description 06/16/2019 Transcribed Document [facility] [place] [facility] [place] [address] Phil Singh MD [address] [place] [address] Social History Tobacco Use Types Packs/Day Years Used Date Smoking Tobacco: Never Assessed Sex and Gender Information Value Date Recorded Sex Assigned at Not on file Legal Sex Male 1:29 PM CDT Gender Identity Not on file Sexual Orientation Not on file documented as of this encounter Miscellaneous Notes * Cerner Conversion Note - Phil Singh MD - 06/16/2019 8:59 PM CDT DATE OF STUDY: 06/16/2019 DUAL-CHAMBER PACEMAKER IMPLANTATION INDICATIONS: Sick sinus syndrome, ventricular ectopic beats and even without ventricular ectopic beats, the sinus rates are persistently low in the 40s, sometimes dropping into the 30s, frequently and almost always in the 50s or below. We tried to use medicines for ventricular ectopic beats and this slowed his heart even further. He has had recent syncopal episode when he got significantly bradycardic, but also was hypotensive. At this point, we think he has significant sinus node dysfunction, sick sinus syndrome, and I have recommended a pacemaker. He is agreeable. Consent was obtained. DESCRIPTION OF PROCEDURE: Patient was brought to the EP laboratory. 1% lidocaine was used to anesthetize the left subclavian region. Access obtained to the left subclavian vein x2. A 0.035 guidewire was advanced down to the level of the inferior vena cava. A pocket was established by sharp and blunt dissection. An active fixation pacing lead placed to the RV apex in the right atrial appendage. The leads were anchored with a 0 silk tie. The pocket was lavaged with antibiotic solution. Bovie and thrombin were used for hemostasis. The generator was placed into the pocket, closed up in three layers. Dermabond applied. No observed complications. PACEMAKER DATA: Company is [employer], model is [id number], serial number is [id number]. The right atrial lead is [id number], pacing threshold 1 V at 0.5 msec. Lead impedance is 360 ohms. P-wave is 3.5 mV. The RV lead is [id number], pacing threshold 0.5 V at 0.5 msec, impedance 510 ohms, R-wave 12 mV. Final programming is DDDR, low rate 70, upper rate 120. CONCLUSION: Successful dual-chamber pacemaker implantation. No observed complications. Gianfranco Marquez M.D. Dict: 06/16/2019 20:59:05 Trans: 06/16/2019 22:59:08 CC1: Gianfranco Marquez M.D. documented in this encounter Plan of Treatment Not on file documented as of this encounter Visit Diagnoses Not on filedocumented in this encounter Care Teams Book Shelver Relationship Specialty Start Date End Date Avel Traoer MD [address] [place] [address] [place], [place] [id number] PCP - General General Internal Medicine 09/21/24 documented as of this encounter
--- OUTSIDE RECORDS SUMMARY | 2025-06-19 08:34 | XMS_ITS | Encounter Summary ---
Author Organization [employer] ([place], [place], [place], [place]) Address [address] [place] [address] Care Team Providers Care Barber Shop Manager Name Role Phone Avel Traore MD Primary Care Provider [phone] Encounter Details Date Type Department Care Team (Late st Contact Info) Description 12/18/2021 Transcribed Document [facility] [place] [address] [place] [address] ProviderPhil MD [address] [place] [address] Social History Tobacco Use Types [...] Date Hua rded Speak language other than German at home Not on file 12/17/2023 Want [...] - Historical ProviderMD - 12/18/2021 10:09 AM RENTAL REPRESENTATIVE [facility] Main OR IntraOp Summary Primary Physician: SERGIO LLANES MD-SUR Finalized Date/Time: 12/19/21 14:17:58 Pt. Name: DALLAS BRODY /Sex: 1950 Male Med Rec #: [id number] Physician: SERGIO LLANES MD-SUR Financial #: [id number] Pt. Type: O Room/Bed: Admit/Disch: 12/18/21 06:58:00 - 12/18/21 11:45:00 Institution: [facility] IntraOp Case Attendance Entry 1 Entry 2 Entry 3 Case Attendee SERGIO LLANES MD-SUR CORNEA, MIHAELA, MD-ANS Poff, Janie, MARGOTH Role Performed Surgeon/Proceduralist, Anesthesiologist of Sales Representative [employer], First First Record Time In 12/18/21 09:52:00 12/18/21 10:01:00 12/18/21 09:52:00 Time Out 12/18/21 10:39:00 12/18/21 10:39:00 12/18/21 10:39:00 Procedure Arteriovenous Fistula Arteriovenous Fistula Arteriovenous Fistula Formation(Right) Formation(Right) Formation(Right) Other Attendee Superficial Wound Closed By: Last Modified By: Shyanne Duran RN Poff, Janie, RN Poff, Janie, RN 12/18/21 14:00:59 12/18/21 14:00:59 12/18/21 14:00:59 Entry 4 Entry 5 Entry 6 Case Attendee FAUSTINO JAMIL CRNA OTHER, ATTENDEE #1 GEORGE TRUJILLO PA Role Performed [employer] LINE CORE FEEDER/Nurse Tunnel Form Placing Supervisor Student Physician transportation assistant Time In 12/18/21 10:01:00 12/18/21 10:01:00 12/18/21 09:52:00 Time Out 12/18/21 10:39:00 12/18/21 10:39:00 12/18/21 10:39:00 Procedure Arteriovenous Fistula Arteriovenous Fistula Arteriovenous Fistula Formation(Right) Formation(Right) Formation(Right) Other Attendee Héctor Vera [facility] Student Superficial Wound Closed By: Last Modified By: Shyanne Duran, Shyanne Mendoza, Shyanne Mendoza RN 12/18/21 14:00:59 12/18/21 14:00:59 12/18/21 14:00:59 Entry 7 Case Attendee Cuco Clements, Cover Making Machine Operator Role Performed Scrub, First Time In 12/18/21 09:52:00 Time Out 12/18/21 10:39:00 Procedure Arteriovenous Fistula Formation(Right) Other Attendee Superficial Wound Closed By: Last Modified By: Shyanne Duran RN 12/18/21 14:00:59 [facility] IntraOp Case Attendance Audit 12/18/21 14:00:59 Power Equipment Mechanics Instructor: SRIDHAR Modifier: POLATOSHA 1 <+> Time Out 1 <*> Procedure Arteriovenous Fistula Formation(Right) 2 <+> Time Out 2 <*> Procedure Arteriovenous Fistula Formation(Right) 3 <+> Time Out 3 <*> Procedure Arteriovenous Fistula Formation(Right) 4 <+> Time Out 4 <*> Procedure Arteriovenous Fistula Formation(Right) 5 <+> Time Out 5 <*> Procedure Arteriovenous Fistula Formation(Right) 6 <+> Time Out 6 <*> Procedure Arteriovenous Fistula Formation(Right) 7 <+> Time Out 7 <*> Procedure Arteriovenous Fistula Formation(Right) 12/18/21 11:51:54 Power Equipment Mechanics Instructor: SRIDHAR Modifier: QUINTINJAN 1 <*> Procedure Arteriovenous Fistula Formation(Right) 2 <*> Procedure Arteriovenous Fistula Formation(Right) 3 <+> Time In 3 <*> Procedure Arteriovenous Fistula Formation(Right) 4 <*> Procedure Arteriovenous Fistula Formation(Right) 5 <*> Procedure Arteriovenous Fistula Formation(Right) 6 <+> Time In 6 <*> Procedure Arteriovenous Fistula Formation(Right) 7 <+> Time In 7 <*> Procedure Arteriovenous Fistula Formation(Right) 12/18/21 10:11:39 Power Equipment Mechanics Instructor: SRIDHAR Modifier: SRIDHAR <+> 1 Procedure <+> 2 Case Attendee <+> 2 Role Performed <+> 2 Time In <+> 2 Procedure <+> 3 Case Attendee <+> 3 Role Performed <+> 3 Procedure <+> 4 Case Attendee <+> 4 Role Performed <+> 4 Time In <+> 4 Procedure <+> 5 Case Attendee <+> 5 Role Performed <+> 5 Time In <+> 5 Procedure <+> 5 Other Attendee <+> 6 Case Attendee <+> 6 Role Performed <+> 6 Procedure <+> 7 Case Attendee <+> 7 Role Performed <+> 7 Procedure [facility] IntraOp Case Times Entry 1 Patient In Room Time 12/18/21 09:52:00 Out Room Time 12/18/21 10:39:00 Anesthesia Start Time 12/18/21 10:01:00 Stop Time 12/18/21 10:39:00 Surgery / Procedure Times Start Time 12/18/21 10:09:00 Stop Time 12/18/21 10:29:00 Last Modified By: Shyanne Duran RN 12/18/21 14:00:56 [facility] IntraOp Case Times Audit 12/18/21 14:00:56 Power Equipment Mechanics Instructor: SRIDHAR Modifier: POFFJAN <+> 1 Out Room Time <+> 1 Stop Time <+> 1 Stop Time 12/18/21 10:09:29 Power Equipment Mechanics Instructor: SRIDHAR Modifier: POFFJAN <+> 1 Start Time <+> 1 Start Time [facility] IntraOp Cautery Entry 1 ESU Identification Cautery Type Monopolar ESU ID Number [id number] ID Type Hospital Number Cautery Settings Cut Setting 30 Coag Setting 30 ESU Grounding Pad Ground Pad Type Adult Grounding Pad Site Left thigh Grounding Pad Shyanne Duran RN Applied By Grounding Pad Site Warm, dry and intact Skin Condition Before Cautery Grounding Pad Site Warm, dry and intact Skin Condition After Cautery Last Modified By: Shyanne Duran RN 12/18/21 10:15:25 [facility] IntraOp Counts Verification Entry 1 Procedure Arteriovenous Fistula Formation(Right) Count Info Count Type Sponge, Sharps, Miscellaneous Counts Verification Baseline/pre-procedure Sequence Count Results Not Applicable Counts Performed By Count Performed By Cuco Clements, Surgical (Scrub) Magnetic Tape Winder Count Performed By Shyanne Duran RN (RN) Last Modified By: Shyanne Duran RN 12/18/21 10:13:54 [facility] IntraOp Counts Final Entry 1 Procedure Arteriovenous Fistula Formation(Right) Final Count Info Count Type Sponge, Sharps, Miscellaneous Counts Verification Skin Closure/end of Sequence procedure Count Results Correct, surgeon notified Counts Performed By Count Performed By Cuco Clements Surgical (Scrub) Magnetic Tape Winder Count Performed By Shyanne Duran RN (RN) Last Modified By: Shyanne Duran RN 12/18/21 10:29:25 [facility] IntraOp Counts Final Audit 12/18/21 10:29:25 Power Equipment Mechanics Instructor: SRIDHAR Modifier: SRIDHAR 1 <*> Procedure Arteriovenous Fistula Formation(Right) 1 <+> Count Performed By (RN) [facility] IntraOp Departure from OR Entry 1 Integumentary Assessment Integumentary WDL with patient Assessment WDL specific variances Patient's Normal Surgical incision = Integumentary RIGHT ARM Variance(s) Transfer/Handoff Transfer to Ambulatory unit, Phase II Handoff Method Phone call Post-op Transport Stretcher/Gurney Via Patient Transport Shyanne Duran RN Accompanied by Transfer/Handoff PATIENT TRANSPORTED TO [facility] OPS BY RN ON 2L O2 PER NASAL CANNULA. PATIENT AWAKE AND ALERT. Last Modified By: Shyanne Duran RN 12/18/21 10:17:49 [facility] IntraOp Dressing and Packing Entry 1 Type Dressing Location RIGHT ARM Wound Dressing Item Skin Closure Glue Applied By GEORGE TRUJILLO PA Other Comments Dermabond Last Modified By: Shyanne Duran RN 12/18/21 10:16:01 [facility] IntraOp Fire Risk Assessment Entry 1 Fire Info Surgical Site or 1- Yes Incision Above the Xyphoid Open O2 Source 1- Yes (Mask or Cannula) Available Ignition 1- Yes (ESU, Laser, Light Source) Fire Risk 3 Assessment Score Fire Score Fire Risk Yes Assessment Complete Fire Risk Shyanne Duran RN Assessment Verified By Fire Risk 12/18/21 10:08:00 Assessment Verified Date/Time Fire Risk High Risk Protocol Yes Implemented Standard Fire Yes Safety Precautions Followed Last Modified By: Shyanne Duran RN 12/18/21 10:12:44 [facility] IntraOp General Case Horse Farm Manager 1 Case Information OR OR 02 [facility] Case Level 1 Room Verified Yes Wound Class 1 - Clean Specialty General Anesthesia Type MAC ASA Class 4 Diagnosis Preop Diagnosis END STAGE RENAL DISEASE Postop Same As Preop Yes Postop Diagnosis END STAGE RENAL DISEASE Wound Class Definitions Last Modified By: Shyanne Duran RN 12/18/21 10:14:16 [facility] IntraOp Intraoperative Assessment Entry 1 Handoff Method Online nursing summary Valid History / Yes Physical in Chart Preoperative Yes Checklist Reviewed/Evaluated Allergies Reviewed Yes Patient is Latex No Sensitive Isolation Not applicable Precautions Noted Level of WDL Consciousness (WDL = Alert, Oriented to Person, Place, and Time) Skin Assessment Yes Verified Present Upon IVs Arrival to OR Last Modified By: Shyanne Duran RN 12/18/21 10:13:36 [facility] IntraOp Intraoperative Equipment Entry 1 Type Monitoring Equipment Equipment Waste Management System ID Number [id number] Intraop Monitoring Electrocardiogram Five lead placement (ECG) Electrode Placement Blood Pressure Non-Invasive BP Device Source Antiembolic Devices Scopes Photo/Video Documentation Photo No Video No Last Modified By: Shyanne Duran RN 12/18/21 10:14:54 [facility] IntraOp Medication Admin Entry 1 Entry 2 Medication/Irrigant Xylocaine 1% with COMBO heparinized NS epinephrine 1:100,000 1000units/100ml - 20 mL mixed with .9% [id number] NaCl 20 mL Combo Med List Time Administered 12/18/21 10:08:00 Route of Local IRRIGANT Administration Dose Dose 10 Unit of Measure ml ml Volume Administered By SERGIO LLANES MD-SUR ATKINS, COLBY P, MD-SUR Procedure Irrigation Irrigant Volume In Irrigant Volume Out Last Modified By: Shyanne Duran RN Poff, Janie, RN 12/18/21 10:29:39 12/18/21 10:16:44 [facility] IntraOp Medication Admin Audit 12/18/21 10:29:39 Power Equipment Mechanics Instructor: SRIDHAR Modifier: SRIDHAR <+> 1 Dose [facility] IntraOp Patient Positioning Entry 1 Procedure Arteriovenous Fistula Formation(Right) Body Position Supine Left Arm Position Resting at side Right Arm Position Extended on hand table Left Leg Position Uncrossed, parallel Right Leg Position Uncrossed, parallel Position Comments Patient remained on stretcher for duration of procedure Feet Uncrossed Yes Pressure Points Yes Checked Positioning Devices Head Rest, Safety Strap, Thighs, Table, Hand Positioned By Shyanne Duran RN, GEORGE TRUJILLO PA, SERGIO LLANES MD-SUR Position Verified Positioning Yes Verified by Anesthesia Positioning Yes Verified by Surgeon Last Modified By: Shyanne Duran RN 12/18/21 10:12:00 [facility] IntraOp Sign In Entry 1 Patient, Site, Yes Procedure Identified Surgical Consent Yes Confirmed Relevant Surgical Yes Documents Available Surgical Site Yes Marked by person performing procedure Anesthesia Machine Yes Check Completed Medication Checks Yes Completed Allergies Yes Airway Difficult Yes Airway/Aspiration Risk Difficult Yes Airway/Aspiration Intervention Equipment Available Blood Loss Risk Yes Blood Loss Yes Intervention Equipment Prepared and Ready Blood Identifiers Not applicable Verified Per Policy Hypothermia Risk Yes Warming Measures Yes Taken Last Modified By: Shyanne Duran RN 12/18/21 10:09:40 [facility] IntraOp Sign Out Entry 1 RN Confirmation Surgical Yes Procedure(s) Identified Instrument, Sponge Yes and Sharps Counts Correct/Documented Equipment Problems N/A Documented Specimen Labeled N/A Correctly Urinary Catheter N/A Documented in IView Wound Yes classification reviewed, verified and updated post case in both the General Case Data and Procedure segments Clarke Patient Yes Recovery Concerns Reviewed with Anesthesia Provider, Surgeon and RN Clarke Patient Yes Management Concerns Reviewed with Anesthesia Provider, Surgeon and RN Safety Checklist Yes Elements Complete? RN Sign Out Shyanne Duran RN Signature RN Sign Out 12/18/21 10:39:00 Signature Date/Time Plan of Care Outcome - Fire Risk OUTCOME STATEMENT: Goal met Patient is free from injury related to surgical fire Plan of Care Outcome - Pt Positioning OUTCOME STATEMENT: Goal met Absence of signs and symptoms of positioning injury. Plan of Care Outcome - Skin Prep OUTCOME STATEMENT: Goal met Intraoperative care is consistent with measures to prevent infection Plan of Care Outcome - Xray/Images OUTCOME STATEMENT: N/A Absence of observable signs or symptoms of radiation injury Plan of Care Outcome - Counts OUTCOME STATEMENT: N/A Absence of signs and symptoms of injury related to extraneous objects Last Modified By: Shyanne Duran RN 12/18/21 14:01:34 [facility] IntraOp Sign Out Audit 12/18/21 14:01:34 Power Equipment Mechanics Instructor: SRIDHAR Modifier: SRIDHAR <+> 1 Urinary Catheter Documented in IView <+> 1 Wound classification reviewed, verified and updated post case in both the General Case Data and Procedure segments [facility] IntraOp Skin Prep Entry 1 Procedure Arteriovenous Fistula Formation(Right) Prescribed Yes Pre-Surgical Prep Completed Prep Area RIGHT ARM Intraop Prep Integumentary WDL Assessment WDL Prep Agents DuraPrep Prep by Shyanne Duran RN Hair Removal Methods No hair removal performed Last Modified By: Shyanne Duran RN 12/18/21 10:14:32 [facility] IntraOp Surgical Procedures Entry 1 Procedure Arteriovenous Fistula Formation Modifiers Right Additional RIGHT BRACHIOCEPHALIC Procedure ARTERIOVENOUS FISTULA Description Primary Procedure Yes Primary Surgeon SERGIO LLANES MD-DUSTIN Start 12/18/21 10:09:00 Stop 12/18/21 10:29:00 Anesthesia Type MAC Specialty General Wound Class 1 - Clean Last Modified By: Shyanne Duran RN 12/18/21 14:01:03 [facility] IntraOp Surgical Procedures Audit 12/18/21 14:01:03 Power Equipment Mechanics Instructor: SRIDHAR Modifier: SRIDHAR <+> 1 Stop [facility] IntraOp Temp Regulation Devices Entry 1 Temp Regulation Temperature Warm blankets, Room Regulation Device temperature Temperature Full body Regulation Site Temperature Shyanne Duran RN Regulation Device Applied by Last Modified By: Shyanne Duran RN 12/18/21 10:15:01 [facility] IntraOP Time Out Entry 1 Procedure to be Arteriovenous Fistula Performed Formation(Right) Time Out Time Out Pause Time 12/18/21 10:08:00 All activity Yes suspended (unless life threatening emergency) Team Verbally Correct patient Confirms Information identity, Correct side and site are marked, Consent form is present and accurate, Agreement on the procedure to be done, Correct patient position, Confirm antibiotics have been administered, Confirm the skin prep has dried, Performed in location of procedure after prepped/draped Antibiotic Yes Prophylaxis Administered Or In Progress Within the Last 60 Minutes Beta Margo Yes Administered Venous N/A Thromboembolism Prophylaxis Required Anticipated Critical Events Surgeon None expected Anesthesia Provider None expected Nursing Assures Sterility of instruments Essential Imaging N/A Labeled and Displayed Last Modified By: Shyanne Duran RN 12/18/21 10:13:27 Case Comments <None> Finalized By: JOSHUA HUNT Document Signatures Signed By: Shyanne Duran RN 12/18/21 14:01 JOSHUA HUNT 12/19/21 14:17 Unfinalized History Date/Time Username Reason for Unfinalizing Freetext Reason for Unfinalizing 12/19/21 14:17 ANETTE Correct Billing documented in this encounter Plan of Treatment Not on file documented as of this encounter Visit Diagnoses Not on filedocumented in this encounter Care Teams Barber Shop Manager Relationship Specialty Start Date End Date Avel Traore MD [address] [place] [address] [place] [address] PCP - General General Internal Medicine 09/21/24 documented as of this encounter
--- OUTSIDE RECORDS SUMMARY | 2025-06-19 08:34 | XMS_ITS | Encounter Summary ---
Author Organization [employer] ([place], [place], [place], [place]) Address [address] [place] [address] Care Team Providers Care Business Development Sales Executive Name Role Phone Avel Traore MD Primary Care Provider [phone] Encounter Details Date Type Department Care Team (Late st Contact Info) Description 06/17/2019 Transcribed Document [facility] [place] [facility] [place] [address] ProviderPhil MD [facility] [place] [address] Social History Tobacco Use Types Packs/Day Years Used Date Smoking Tobacco: Never Assessed Sex and Gender Information Value Date Recorded Sex Assigned at Not on file Legal Sex Male 1:29 PM CDT Gender Identity Not on file Sexual Orientation Not on file documented as of this encounter Miscellaneous Notes * Cerner Conversion Note - Phil Singh MD - 06/17/2019 2:00 AM CDT Manager Massage Department Details Entered On: 06/17/2019 4:42 EDT Performed On: 06/17/2019 2:00 EDT by Jessie Ordoñez, MARGOTH Order Details Transport Mode Order Detail : Wheelchair Isolation Precautions Order Detail : Standard Precautions Order Detail : N/A IV Order Detail : 1 Oxygen Order Detail : 0 Nurse Collect Order Detail : 0 Lift/Transfer : Minimal Central Line Order Detail : No Room Service : Appropriate Arterial Line : No Jessie Ordoñez, MARGOTH - 06/17/2019 4:41 EDT documented in this encounter Plan of Treatment Not on file documented as of this encounter Visit Diagnoses Not on filedocumented in this encounter Care Teams Business Development Sales Executive Relationship Specialty Start Date End Date Avel Traore MD [address] [place], [place] [id number] PCP - General General Internal Medicine 09/21/24 documented as of this encounter
--- OUTSIDE RECORDS SUMMARY | 2025-06-19 08:34 | XMS_ITS | Encounter Summary ---
Author Organization [employer] ([place], [place], [place], [place]) Address [address] [place] [address] Care Team Providers Care Hide Cleaner Name Role Phone Avel Traore MD Primary Care Provider [phone] Encounter Details Date Type Department Care Team (Late st Contact Info) Description 12/18/2021 Transcribed Document [facility] [place] Family Medicine [address] [place] [address] ProviderPhil MD [address] [place] [address] Social History Tobacco Use Types [...] Date Hua rded Speak language other than Maldivian at home Not on file 12/17/2023 Want [...] Conversion Note - Historical ProviderMD - 12/18/2021 11:32 AM SUPERVISOR [facility] [address] [place] [id number] DALLAS BRODY :1950 Visit Time:12/18/2021 What to do next Your Diagnosis End stage renal disease, End stage renal disease Instructions From Your Care Team Diet after Discharge: Resume usual diet as tolerated, Do not drink any alcoholic beverages Activity after Discharge: Rest and relax today, No strenuous activity. keep arm elevated 3 days, walk 3 to 5 times a day Lifting Restrictions: No heavy lifting over 10 pounds, keep arm elevated Driving after Discharge: Do not drive until 24 hours after no longer taking pain medications Showering/Bathing: wash arm incision in 24 hours gently with soap and water, no submerging or soaking , no pools , tubs, etc. continue to wash daily and prior to dialysis. Notify Provider of: fever or chills, excessive bleeding, pain , swelling, pus-like drainage, or loss of sensation Wound/Incision Care after Discharge: Keep operative site/wound site clean and dry take pain medication with food, take stool softeners 2 to 3 times a day while on pain medication you may also use ice for 20min/hr as needed for pain control and/or swelling Discharge Follow Up Instructions: Give Patient A-V Fistula Discharge Instructions Activity: Refer to discharge instruction sheet, Discharge Activity: Activity as tolerated Diet: Discharge Diet: Resume usual diet as tolerated Follow-Up Appointments Follow Up with TIRSO LLANES MD-DUSTIN When Within 1 week Comments Call office tomorrow to schedule Follow-up appointment Where: [address] [place] [address] [address] [place] [id number]- Medications What How Much When Instructions Next Dose amLODIPine (amLODIPine 5 mg oral tablet) 1 Tablet(s) Oral Every Day Hold if Systolic Blood Pressure (top number) is less than 140 apixaban (Eliquis 2.5 mg oral tablet) 1 Tablet(s) Oral Interval Every 12 Hours Take this until 06-19-2019, then go back to your 5mg twice a day dose. chondroitin-glucosamine (Osteo Bi-Flex) 2 Tablet(s) Oral Every [...] and medications per pharmacy guidance. Education Materials Dr. Tirso Llanes [address], [place] [address] Office- [phone] Akila Hidalgo, Nurse Practitioner, Discharge Instructions ??? Arteriovenous Fistula Creation An Arteriovenous Fistula is a surgical connection of an artery and a vein. This is a common procedure for hemodialysis. Blood will go out from and come back to the fistula through separate needles after it is cleaned by the dialysis machine. Once the fistula is created, it will need to mature which takes approximately 8-12 weeks. Please continue to follow up with Dr. Llanes. He will let you know when it is okay to use the fistula for dialysis. Discharge Medications: Resume taking your medications as [...] Care: Your incision will be closed with absorbable stitches and may have thin strips of tape on it. Remove the dressing in 3 days. [...] peroxide, or other ointments on your incision. Showering: You may shower tomorrow. No tub baths. Keep the incision away from the shower stream. Keep the clear dressing in place, it is waterproof. Do not soak the incision. Activity: Rest [...] AV fistula: To prevent damage to the fistula, no one should take your blood pressure [...] that need hospital attention please return to [facility] on [address]. If you live out of town and are in an emergency situation please call 911 or go to the nearest emergency room. Emergency Awareness and Preventative Care STROKE is [...] Assistance with quitting is available by contacting 3-925-KNWD-NOW. This is a free resource providing counseling, [...] This Visit (last charted value for your 12/18/2021 visit) General Chemistry 12/18/2021 8:47 AM Potassium POC: 4.1 mmol/L -- Normal range between ( 3.5 and 4.9 ) :Potassium Level POC: :Potassium Level POC Patient Name:DALLAS BRODY I have received this information and was given the opportunity to ask questions. Patient/Tattooer Name: Patient/Tattooer Signature: Relationship to Patient: Clinician/Hospital Tattooer Signature: Date: documented in this encounter Plan of Treatment Not on file documented as of this encounter Visit Diagnoses Not on filedocumented in this encounter Care Teams Hide Cleaner Relationship Specialty Start Date End Date Avel Traore MD [address] [place] [address] PCP - General General Internal Medicine 09/21/24 documented as of this encounter
--- OUTSIDE RECORDS SUMMARY | 2025-06-19 08:34 | XMS_ITS | Encounter Summary ---
Author Organization [employer] ([place], [place], [place], [place]) Address [address] [place] [address] Care Team Providers Care Hot Repairman Name Role Phone Avel Traore MD Primary Care Provider [phone] Encounter Details Date Type Department Care Team (Late st Contact Info) Description 06/17/2019 Transcribed Document [facility] [place] Family Medicine [facility] [place] [address] ProviderPhil MD [address] [place] [address] Social History Tobacco Use Types Packs/Day Years Used Date Smoking Tobacco: Never Assessed Sex and Gender Information Value Date Recorded Sex Assigned at Not on file Legal Sex Male 1:29 PM CDT Gender Identity Not on file Sexual Orientation Not on file documented as of this encounter Miscellaneous Notes * Cerner Conversion Note - Phil ProviderMD - 06/17/2019 4:00 AM CDT Height and Weight, Routine Entered On: 06/17/2019 6:21 EDT Performed On: 06/17/2019 4:00 EDT by Luis Coffey [facility] Unit Coord Height and Weight, Routine Routine Weight Source : Standing scale Routine Weight Entry Format : [place] Routine Weight, Pounds : 182 lb Routine Weight, Ounces : 6 oz Routine Weight Calculation : 82.9 kg Height Source : Stated Height Entry Format : [place] Height, Feet : 5 ft Height, Inches : 7 Inch Clinical Height : 170.18 cm Body Surface Area (BSA), Routine : 1.95 m2 Body Mass Index (BMI), Routine : 28.62 kg/m2 Luis Coffey Care Asst-Health Unit [facility] - 06/17/2019 6:21 EDT Electronically signed by Yaneth, [facility] Conversion Fun House Operator Cerner at 03/17/2023 9:09 PM CDT documented in this encounter Plan of Treatment Not on file documented as of this encounter Visit Diagnoses Not on filedocumented in this encounter Care Teams Hot Repairman Relationship Specialty Start Date End Date Avel Traore MD [address] [place] [address] [place] [address] PCP - General General Internal Medicine 09/21/24 documented as of this encounter
--- OUTSIDE RECORDS SUMMARY | 2025-06-19 08:34 | XMS_ITS | Encounter Summary ---
Author Organization [employer] ([place], [place], [place], [place]) Address [address] [place] [address] Care Team Providers Care Paste Mixer Name Role Phone Avel Traore MD Primary Care Provider [phone] Encounter Details Date Type Department Care Team (Late st Contact Info) Description 06/16/2019 Transcribed Document [facility] [place] Family Medicine [place] [address] ProviderPhil MD [address] [place] [address] Social History Tobacco Use Types Packs/Day Years Used Date Smoking Tobacco: Never Assessed Sex and Gender Information Value Date Recorded Sex Assigned at Not on file Legal Sex Male 1:29 PM CDT Gender Identity Not on file Sexual Orientation Not on file documented as of this encounter Miscellaneous Notes * Cerner Conversion Note - Phil Singh MD - 06/16/2019 5:00 AM CDT Chart Check - Review Order Profile Entered On: 06/16/2019 4:42 EDT Performed On: 06/16/2019 5:00 EDT by Jessie Ordoñez RN Chart Check Powerplans Initiated/Discontinued as Appropriate : Yes All Active Orders Reviewed : Yes Jessie Ordoñez RN - 06/16/2019 4:42 EDT documented in this encounter Plan of Treatment Not on file documented as of this encounter Visit Diagnoses Not on filedocumented in this encounter Care Teams Paste Mixer Relationship Specialty Start Date End Date Avel Traore MD [address] [place] [address] PCP - General General Internal Medicine 09/21/24 documented as of this encounter
--- OUTSIDE RECORDS SUMMARY | 2025-06-19 08:34 | XMS_ITS | Encounter Summary ---
Author Organization [employer] ([place], [place], [place], [place]) Address [address] [place] [address] Care Team Providers [employer] Name Role Phone Avel Traore MD Primary Care Provider [phone] Encounter Details Date Type Department Care Team (Late st Contact Info) Description 06/17/2019 Transcribed Document [facility] [place] [address] ProviderPhil MD [address] [place] [id number] Social History Tobacco Use Types Packs/Day Years Used Date Smoking Tobacco: Never Assessed Sex and Gender Information Value Date Recorded Sex Assigned at Not on file Legal Sex Male 1:29 PM CDT Gender Identity Not on file Sexual Orientation Not on file documented as of this encounter Miscellaneous Notes * Cerner Conversion Note - Phil Singh MD - 06/17/2019 1:46 PM CDT [facility] [address] [address] [address] :1950 Visit Time:06/15/2019 Your Visit Summary Your Care Team Admitting Physician - PAMELLA ECHOLS MD-INT Attending Physician - PAMELLA ECHOLS MD-INT Primary Care Physician - KETAN TORRES (REF), -MED Referring Physician - FAUSTINO ALDRICH MD Your Diagnosis Acute hypotension Acute on chronic anemia Bradycardia Cardiac syncope, Syncope and collapse, Syncope and collapse Elevated troponin I measurement Syncope/Near syncope What to do next Instructions From Your Care Team STOP taking the following medications: 1) clonidine 2) lasix (furosemide) 3) losartan Discharge Activity: Discharge Activity: Activity as tolerated Diet: Discharge Diet: Heart healthy diet Follow-Up Appointments Follow Up with MIKE LEDESMA MD-CAR When In 1 month Comments Call for follow up appointment Where: [address] [place] [address] [address] [place] [address]- Follow Up with [facility] When Within 2 to 3 days Comments For further assistance with your Primary Care Physician please contact the [facility] at [phone]. Follow Up with KETAN TORRES (REF), -MED When Within 2 to 3 [address] Torres is their Primary Care Provider. Please contact the [facility] at if you need assistance scheduling a Specialist or Primary Care Provider in the future. Where: [facility] [address]- Medications What How Much When Instructions Next Dose acetaminophen-oxyCODONE (Percocet 5/ 325 oral tablet) 1 to 2 tab Oral Every 6 Hours as needed for for pain New medication. Prescription provided. 06/17 atenolol (atenolol 25 mg oral tablet) 1 Tablet(s) Oral Two Times A Day Hold if Systolic Blood Pressure (top number) is less than 135 New medication. Prescription provided. 06/17 8p amLODIPine (amLODIPine 5 mg oral tablet) 1 Tablet(s) Oral Every Day Hold if Systolic Blood Pressure (top number) is less than 140 New medication. Prescription provided. 06/18 8a apixaban (Eliquis 2.5 mg oral tablet) 1 Tablet(s) Oral Interval Every 12 Hours Take this until 06-19-2019, then go back to your 5mg twice a day dose. Please note: new dose. This is a dose decrease. Prescription sent to [facility] 06/17 8p chondroitin-glucosamine (Osteo Bi-Flex) 2 Tablet(s) Oral Every Day 06/18 flecainide (flecainide 100 mg oral tablet) 0.5 Tablet(s) Oral Two Times A Day New medication. Prescription sent to [facility] Pickup at [place] [address] 06/17 8p FLUoxetine (FLUoxetine 10 mg oral tablet) 1 Tablet(s) Oral Every Day 06/18 8a levothyroxine (levothyroxine 88 mcg (0.088 mg) oral tablet) 1 Tablet(s) Oral Every Day 06/18 7a Pharmacy Information [facility] [address], [place] [id number] [phone] Take your medications faithfully. Do NOT skip [...] reaction) Immunizations This Visit No Immunizations Found Stroke/TIA Instructions Individualized Stroke Risk Factors Individualized Stroke Risk Factors *Q: Atrial fibrillation, Congestive heart failure, High cholesterol, Hypertension/High blood pressure Stroke/TIA Signs/Symptoms to Report Immediately: Sudden onset difficulty speaking, Sudden onset difficulty understanding speech, Sudden onset change in vision, Sudden onset weakness particulary on one side of the body, Sudden onset numbness/tingling, Sudden severe headache, Sudden dizziness or trouble with gait, Call : EMS activation is crucial Mutually Agreed Upon Goals My LDL Level: My LDL Level: Education Materials Biventricular Pacemaker Implantation A biventricular pacemaker implantation [...] including vitamins, herbs, eye drops, creams, and qclx-jpt-hcezfnu medicines. ??? Any problems you or family [...] lists the implant date, device model, and wallpaper printer of your pacemaker. ??? Do not drive for 24 hours if you received a sedative. This information is not intended to replace advice given to you by your health care provider. Make sure you discuss any questions you have with your health care provider. Document Released: 08/09/2013 Document Revised: 04/22/2017 Document Reviewed: 08/09/2016 [email or web address] Patient Education ?? 2018 [employer]. flecainide (FLEK a nide) Franciscor What is the most important information I should know about flecainide? You should not use this medicine if you have a serious heart condition such as bundle branch block or AV block (without a pacemaker), or if your heart cannot pump blood properly. You may receive your first dose in a hospital or clinic setting to quickly treat any serious side effects. What is flecainide? Flecainide is a Class IC anti-arrhythmic that is used in certain situations to prevent serious heart rhythm disorders. Flecainide may also be used for purposes not listed in this medication guide. What should I discuss with my healthcare provider before taking flecainide? You should not use flecainide if you are allergic to it, or if: ? you have a serious heart condition such as bundle branch block or AV block (unless you have a pacemaker); or ?? your heart cannot pump blood properly. Tell your doctor if you have ever had: ? a heart attack; ?? chronic atrial fibrillation, or 'AFib'; ?? congestive heart failure; ?? a heart condition called 'sick sinus syndrome'; ?? an electrolyte imbalance (such as low levels of potassium or magnesium in your blood); or ?? liver disease. It is not known whether this medicine will harm an unborn baby. Tell your doctor if you are or plan to become . It may not be safe to breast-feed while using this medicine. Ask your doctor about any risk. How should I take flecainide? Follow all directions on your prescription label and read all medication guides or instruction sheets. Your doctor may occasionally change your dose. Use the medicine exactly as directed. You may receive your first few doses in a hospital or clinic setting to quickly treat any serious side effects. Your heart rate will be monitored using an electrocardiograph or ECG (sometimes called an EKG). This will help your doctor determine how long to treat you with flecainide. You may also need frequent blood tests to check your liver or kidney function. Store at room temperature away from moisture, heat, and light. What happens if I miss a dose? Take the medicine as soon as you can, but skip the missed dose if it is almost time for your next dose. Do not take two doses at one time. What happens if I overdose? Seek emergency medical attention or call the Poison Help line at . Overdose symptoms may include nausea, vomiting, slow heart rate, fainting, or seizure (convulsions). What should I avoid while taking flecainide? Follow your doctor's instructions about any restrictions on food, beverages, or activity. What are the possible side effects of flecainide? Get emergency medical help if you have signs of an allergic reaction: hives; difficulty breathing; swelling of your face, lips, tongue, or throat. Call your doctor at once if you have: ? fast or pounding heartbeats; ?? fluttering in your chest, shortness of breath, and sudden dizziness (like you might pass out); ?? slow heart rate, weak pulse, slow breathing (breathing may stop); ?? feeling short of breath; ?? swelling, rapid weight gain; ?? pale skin, easy bruising or bleeding, unusual weakness; ?? fever, flu-like symptoms; or ?? jaundice (yellowing of the skin or eyes). Common side effects may include: ? dizziness; ?? vision problems; ?? trouble breathing; ?? headache; ?? nausea; or ?? feeling weak or tired. This is not a complete list of side effects and others may occur. Call your doctor for medical advice about side effects. You may report side effects to FDA at 3-402-DNR-9691. What other drugs will affect flecainide? Tell your doctor about all your other medicines, especially: ? digoxin; ?? a diuretic or 'water pill'; ?? a beta-laura (atenolol, metoprolol, propranolol, sotalol, and others); ?? other heart medications such as amiodarone, diltiazem, disopyramide, nifedipine, quinidine, or verapamil; or ?? seizure medication. This list is not complete. Other drugs may affect flecainide, including prescription and ejpb-rhm-rearzos medicines, vitamins, and herbal products. Not all possible drug interactions are listed here. Where can I get more information? Your pharmacist can provide more information about flecainide. Remember, keep this and all other medicines out of the reach of children, never share your medicines with others, and use this medication only for the indication prescribed. Every effort has been made to ensure that the information provided by [employer]. [employer]') is accurate, up-to-date, and complete, but no guarantee is made to that effect. Drug information contained herein may be time sensitive. [employer] information has been compiled for use by healthcare practitioners and consumers in the [place] and therefore [employer] does not warrant that uses outside of the [place] are appropriate, unless specifically indicated otherwise. [employer]'s drug information does not endorse drugs, diagnose patients or recommend therapy. [facility] drug information is an informational resource designed to assist licensed healthcare practitioners in caring for their patients and/or to serve consumers viewing this service as a supplement to, and not a substitute for, the expertise, skill, knowledge and judgment of healthcare practitioners. The absence of a warning for a given drug or drug combination in no way should be construed to indicate that the drug or drug combination is safe, effective or appropriate for any given patient. [employer] does not assume any responsibility for any aspect of healthcare administered with the aid of information [employer] provides. The information contained herein is not intended to cover all possible uses, directions, precautions, warnings, drug interactions, allergic reactions, or adverse effects. If you have questions about the drugs you are taking, check with your doctor, nurse or pharmacist. Copyright 0754-0478 [employer]. Version: 4.01. Revision Date: 12/13/2018.amlodipine (am ARAVIND di ney) Norvasc What is the most important information I should know about amlodipine? Follow all directions on your medicine label and package. Tell each of your healthcare providers about all your medical conditions, allergies, and all medicines you use. What is amlodipine? Amlodipine is a calcium channel laura that dilates (widens) blood vessels and improves blood flow. Amlodipine is used to treat chest pain (angina) and other conditions caused by coronary artery disease. Amlodipine is also used to treat high blood pressure (hypertension). Lowering blood pressure may lower your risk of a stroke or heart attack. Amlodipine is for use in adults and children who are at least 6 years old. Amlodipine may also be used for purposes not listed in this medication guide. What should I discuss with my healthcare provider before taking amlodipine? You should not take amlodipine if you are allergic to it. To make sure amlodipine is safe for you, tell your doctor if you have: ? liver disease; or ?? a heart valve problem called aortic stenosis. It is not known whether this medicine will harm an unborn baby. Tell your doctor if you are or plan to become . Amlodipine can pass into breast milk, but effects on the nursing baby are not known. Tell your doctor if you are breast-feeding. Amlodipine is not approved for use by anyone younger than 6 years old. How should I take amlodipine? Follow all directions on your prescription label. Your doctor may occasionally change your dose. Do not use this medicine in larger or smaller amounts or for longer than recommended. You may take amlodipine with or without food. Take the medicine at the same time each day. Your blood pressure will need to be checked often. Your chest pain may become worse when you first start taking amlodipine or when your dose is increased. Call your doctor if your chest pain is severe or ongoing. If you are being treated for high blood pressure, keep using amlodipine even if you feel well. High blood pressure often has no symptoms. You may need to use blood pressure medicine for the rest of your life. Your hypertension or heart condition may be treated with a combination of drugs. Use all medications as directed by your doctor. Read the medication guide or patient instructions provided with each medication. Do not change your doses or stop taking any of your medications without your doctor's advice. This is especially important if you also take nitroglycerin. Amlodipine is only part of a complete program of treatment that may also include diet, exercise, weight control, and other medications. Follow your diet, medication, and exercise routines very closely. Store at room temperature away from moisture, heat, and light. What happens if I miss a dose? Take the missed dose as soon as you remember. If you are more than 12 hours late, skip the missed dose. Do not take extra medicine to make up the missed dose. What happens if I overdose? Seek emergency medical attention or call the Poison Help line at . Overdose symptoms may include rapid heartbeats, redness or warmth in your arms or legs, or fainting. What should I avoid while taking amlodipine? Avoid getting up too fast from a sitting or lying position, or you may feel dizzy. Get up slowly and steady yourself to prevent a fall. What are the possible side effects of amlodipine? Get emergency medical help if you have signs of an allergic reaction: hives; difficulty breathing; swelling of your face, lips, tongue, or throat. In rare cases, when you first start taking amlodipine, your angina may get worse or you could have a heart attack. Seek emergency medical attention or call your doctor right away if you have symptoms such as: chest pain or pressure, pain spreading to your jaw or shoulder, nausea, sweating. Call your doctor at once if you have: ? pounding heartbeats or fluttering in your chest; ?? worsening chest pain; ?? swelling in your feet or ankles; ?? severe drowsiness; or ?? a light-headed feeling, like you might pass out. Common side effects may include: ? dizziness; ?? feeling tired; ?? stomach pain, nausea; or ?? flushing (warmth, redness, or tingly feeling). This is not a complete list of side effects and others may occur. Call your doctor for medical advice about side effects. You may report side effects to FDA at 8-561-MIS-1367. What other drugs will affect amlodipine? Tell your doctor about all your current medicines and any you start or stop using, especially: ? nitroglycerin; ?? simvastatin (Zocor, Simcor, Vytorin); or ?? any other heart or blood pressure medications. This list is not complete. Other drugs may interact with amlodipine, including prescription and giqq-dmd-kpcptyd medicines, vitamins, and herbal products. Not all possible interactions are listed in this medication guide. Where can I get more information? Your pharmacist can provide more information about amlodipine. Remember, keep this and all other medicines out of the reach of children, never share your medicines with others, and use this medication only for the indication prescribed. Every effort has been made to ensure that the information provided by [employer]. [employer]') is accurate, up-to-date, and complete, but no guarantee is made to that effect. Drug information contained herein may be time sensitive. [employer] information has been compiled for use by healthcare practitioners and consumers in the [place] and therefore [employer] does not warrant that uses outside of the [place] are appropriate, unless specifically indicated otherwise. [facility] drug information does not endorse drugs, diagnose patients or recommend therapy. [facility] drug information is an informational resource designed to assist licensed healthcare practitioners in caring for their patients and/or to serve consumers viewing this service as a supplement to, and not a substitute for, the expertise, skill, knowledge and judgment of healthcare practitioners. The absence of a warning for a given drug or drug combination in no way should be construed to indicate that the drug or drug combination is safe, effective or appropriate for any given patient. [employer] does not assume any responsibility for any aspect of healthcare administered with the aid of information [employer] provides. The information contained herein is not intended to cover all possible uses, directions, precautions, warnings, drug interactions, allergic reactions, or adverse effects. If you have questions about the drugs you are taking, check with your doctor, nurse or pharmacist. Copyright 9343-8162 [employer]. Version: 14.. Revision Date: 03/08/2017.atenolol (a TEN oh lol) Tenormin What is the most important information I should know about atenolol? You should not use this medicine if you have a serious heart condition such as 'AV block,' very slow heartbeats, or heart failure. What is atenolol? Atenolol is a beta-laura that affects the heart and circulation (blood flow through arteries and veins). Atenolol is used to treat angina (chest pain) and hypertension (high blood pressure). Atenolol is also used to lower the risk of after a heart attack. Atenolol may also be used for purposes not listed in this medication guide. What should I discuss with my healthcare provider before taking atenolol? You should not use atenolol if you are allergic to it, or if you have: ? a serious heart condition such as 'AV block' (second or third degree); ?? very slow heartbeats; or ?? heart failure. To make sure atenolol is safe for you, tell your doctor if you have: ? congestive heart failure; ?? coronary artery disease (hardened arteries); ?? asthma, bronchitis, emphysema; ?? diabetes; ?? overactive thyroid; ?? liver or kidney disease; ?? pheochromocytoma (tumor of the adrenal gland); ?? peripheral vascular disease such as Raynaud's syndrome; or ?? allergies (or if you are undergoing allergy treatments or skin-testing). Using atenolol during could harm the unborn baby. Tell your doctor if you are or if you become while using this medicine. Atenolol can pass into breast milk and may harm a nursing baby. Tell your doctor if you are breast-feeding a baby. Atenolol is not approved for use by anyone younger than 18 years old. How should I take atenolol? Follow all directions on your prescription label. Your doctor may occasionally change your dose to make sure you get the best results. Do not use this medicine in larger or smaller amounts or for longer than recommended. Your blood pressure will need to be checked often. If you need surgery, tell the surgeon ahead of time that you are using atenolol. You may need to stop using the medicine for a short time. It may take up to 2 weeks before you get the full effect of atenolol. Keep using the medication as directed and tell your doctor if your symptoms do not improve. You should not stop taking atenolol suddenly. Stopping suddenly may make your condition worse. If you are being treated for high blood pressure: Keep using this medicine even if you feel well. High blood pressure often has no symptoms. You may need to use blood pressure medicine for the rest of your life. Your condition may need to be treated with a combination of drugs. Use all medications as directed by your doctor. Read the medication guide or patient instructions provided with each medication. Do not change your doses or medication schedule without your doctor's advice. Store at room temperature away from moisture, heat, and light. Keep the bottle tightly closed when not in use. What happens if I miss a dose? Take the missed dose as soon as you remember. Skip the missed dose if it is almost time for your next scheduled dose. Do not take extra medicine to make up the missed dose. What happens if I overdose? Seek emergency medical attention or call the Poison Help line at . Overdose symptoms may include extreme weakness or lack of energy, very slow heart rate, shortness of breath, or fainting. What should I avoid while taking atenolol? Follow your doctor's instructions about any restrictions on food, beverages, or activity. What are the possible side effects of atenolol? Get emergency medical help if you have signs of an allergic reaction: hives; difficult breathing; swelling of your face, lips, tongue, or throat. Call your doctor at once if you have: ? new or worsening chest pain; ?? slow or uneven heartbeats; ?? a light-headed feeling, like you might pass out; ?? shortness of breath (even with mild exertion), swelling, rapid weight gain; or ?? a cold feeling in your hands and feet. Common side effects may include: ? dizziness; ?? feeling tired; or ?? depressed mood. This is not a complete list of side effects and others may occur. Call your doctor for medical advice about side effects. You may report side effects to FDA at 0-686-JEW-1938. What other drugs will affect atenolol? Tell your doctor about all your current medicines and any you start or stop using, especially: ? digoxin, digitalis; ?? indomethacin; ?? any other beta-laura--bisoprolol, carvedilol, labetalol, metoprolol, nebivolol, propranolol, sotalol, timolol, and others; or ?? heart or blood pressure medication--amiodarone, clonidine, diltiazem, disopyramide, nicardipine, nifedipine, reserpine, verapamil, and others. This list is not complete. Other drugs may interact with atenolol, including prescription and wvgg-lmm-lmonyox medicines, vitamins, and herbal products. Not all possible interactions are listed in this medication guide. Where can I get more information? Your pharmacist can provide more information about atenolol. Remember, keep this and all other medicines out of the reach of children, never share your medicines with others, and use this medication only for the indication prescribed. Every effort has been made to ensure that the information provided by [employer]. [employer] is accurate, up-to-date, and complete, but no guarantee is made to that effect. Drug information contained herein may be time sensitive. [employer] information has been compiled for use by healthcare practitioners and consumers in the [place] and therefore [employer] does not warrant that uses outside of the [place] are appropriate, unless specifically indicated otherwise. [facility] drug information does not endorse drugs, diagnose patients or recommend therapy. [facility] drug information is an informational resource designed to assist licensed healthcare practitioners in caring for their patients and/or to serve consumers viewing this service as a supplement to, and not a substitute for, the expertise, skill, knowledge and judgment of healthcare practitioners. The absence of a warning for a given drug or drug combination in no way should be construed to indicate that the drug or drug combination is safe, effective or appropriate for any given patient. [employer] does not assume any responsibility for any aspect of healthcare administered with the aid of information [employer] provides. The information contained herein is not intended to cover all possible uses, directions, precautions, warnings, drug interactions, allergic reactions, or adverse effects. If you have questions about the drugs you are taking, check with your doctor, nurse or pharmacist. Copyright 5019-8111 [employer]. Version: 9.01. Revision Date: 08/05/2016. Emergency Awareness and Preventative Care STROKE is [...] Assistance with quitting is available by contacting 1-574-VCJHNOW. This is a free resource providing counseling, [...] CPR? There are two easy steps: Call 9-1-1 if you see a teen or adult [...] This Visit (last charted value for your 06/15/2019 visit) Hematology 06/16/19 05:46:00 WBC: 5.4 K/uL -- Normal range between ( 3.6 and 9.5 ) RBC: 4.84 Million/uL -- Normal range between ( 4.20 and 5.70 ) Hct: 31.2 % -- Normal range between ( 40.1 and 51.0 ) Hgb: 9.2 g/dL -- Normal range between ( 13.5 and 17.3 ) Platelet Count: 143 K/uL -- Normal range between ( 163 and 369 ) MCH: <20.0 pg -- Normal range between ( 25.6 and 32.2 ) MCHC: 29.5 Gram/dL -- Normal range between ( 32.2 and 36.5 ) MCV: 64.5 fL -- Normal range between ( 79.0 and 94.8 ) Slide Review: Technologist Eos %: 2.8 % -- Normal range between ( 0.0 and 7.0 ) Target Cells: 1+ Granite #: 0.67 K/uL -- Normal range between ( 0.16 and 1.00 ) Eos #: 0.15 x10(3)/uL -- Normal range between ( 0.00 and 0.80 ) Granite %: 12.4 % -- Normal range between ( 3.0 and 9.0 ) Baso %: 0.4 % -- Normal range between ( 0.0 and 1.5 ) Microcytosis: 2+ RBC Morphology: Abnormal Baso #: 0.02 x10(3)/uL -- Normal range between ( 0.00 and 0.20 ) RDW: 15.9 % -- Normal range between ( 11.7 and 14.9 ) Neut %: 58.2 % -- Normal range between ( 34.0 and 71.0 ) Ovalocytes: 1+ Neut #: 3.14 K/uL -- Normal range between ( 1.56 and 6.13 ) Lymph %: 25.8 % -- Normal range between ( 19.3 and 53.1 ) Platelet Ct Estimate: Decreased [place] Cells: 1+ Lymph #: 1.39 x10(3)/uL -- Normal range between ( 1.00 and 3.90 ) MPV: 10.6 fL -- Normal range between ( 9.4 and 12.4 ) Poikilocytosis: 1+ IG#: 0.02 x10(3)/uL -- Normal range between ( 0.00 and 0.05 ) IG%: 0.40 % -- Normal range between ( 0.00 and 0.60 ) 06/15/19 16:06:00 Reticulocyte: 1.10 % -- Normal range between ( 0.50 and 1.80 ) 06/15/19 13:35:00 Hypochromia: 1+ General Chemistry 06/16/19 05:46:00 Creatinine Level: 1.50 mg/dL -- Normal range between ( 0.70 and 1.30 ) Sodium Level: 144 mmol/L -- Normal range between ( 136 and 146 ) Potassium Level: 4.3 mmol/L -- Normal range between ( 3.5 and 5.1 ) Chloride Level: 116 mmol/L -- Normal range between ( 102 and 112 ) Carbon Dioxide Level: 26 mmol/L -- Normal range between ( 21 and 32 ) Anion Gap: 6 -- Normal range between ( 9 and 20 ) Bilirubin Total: 0.5 mg/dL -- Normal range between ( 0.2 and 1.2 ) A/G Ratio: 0.9 -- Normal range between ( 1.1 and 2.5 ) ALT: 18 Units/Liter -- Normal range between ( 16 and 61 ) AST: 21 Units/Liter -- Normal range between ( 5 and 37 ) Globulin: 3.0 Gram/dL -- Normal range between ( 1.5 and 4.5 ) Alk Phos: 53 Units/Liter -- Normal range between ( 27 and 136 ) Bun/Creatinine: 17.3 -- Normal range between ( 8.0 and 20.0 ) Calcium Level: 8.3 mg/dL -- Normal range between ( 8.4 and 10.1 ) eGFR : 56 mL/min/1.73m2 eGFR NonAfrican: 46 mL/min/1.73m2 Glucose Level: 87 mg/dL -- Normal range between ( 74 and 106 ) Magnesium Level: 2.2 mg/dL -- Normal range between ( 1.5 and 2.4 ) Blood Urea Nitrogen: 26 mg/dL -- Normal range between ( 7 and 22 ) Protein Total: 5.8 Gram/dL -- Normal range between ( 6.4 and 8.2 ) Albumin Level: 2.8 Gram/dL -- Normal range between ( 3.4 and 5.0 ) 06/15/19 13:35:00 Lipase Level: 105 Units/Liter -- Normal range between ( 73 and 393 ) Cardiac Specific Markers 06/15/19 13:35:00 Troponin I Ultra: 1.330 ng/mL -- Normal range between ( 0.015 and 0.045 ) ProBNP: 1986 pg/mL -- Normal range between ( 0 and 125 ) Coagulation 06/15/19 13:35:00 INR: 1.0 -- Normal range between ( 0.9 and 1.1 ) PTT: 28.0 Second(s) -- Normal range between ( 22.0 and 32.0 ) PT: 10.9 Second(s) -- Normal range between ( 9.6 and 12.0 ) Endocrinology 06/15/19 13:35:00 TSH: 2.300 mcInt Units/mL -- Normal range between ( 0.358 and 3.740 ) Iron Studies 06/15/19 16:06:00 Ferritin Level: 47.0 ng/mL -- Normal range between ( 26.0 and 388.0 ) TIBC: 315.0 mcg/dL -- Normal range between ( 250.0 and 450.0 ) Iron Level: 56 mcg/dL -- Normal range between ( 65 and 175 ) Computed Tomography 06/15/19 14:11:00 CT Head WO: CT Head WO Diagnostic Radiology 06/16/19 13:13:15 CR Chest 1 Vw Portable: CR Chest 1 Vw Portable Patient Name:DALLAS BRODY I have received and understand this information and was given the opportunity to ask questions. Patient/China Painter Name: Patient/China Painter Signature: Relationship to Patient: Clinician/Hospital China Painter Signature: Date: documented in this encounter Plan of Treatment Not on file documented as of this encounter Visit Diagnoses Not on filedocumented in this encounter Care Teams [employer] Librarian Relationship Specialty Start Date End Date Avel Traore MD [address] [place] [address] PCP - General General Internal Medicine 09/21/24 documented as of this encounter
[2025-06-19 08:51] LABS: Hematocrit 26.6 % (42.0-52.0); Hemoglobin 7.9 g/dL (14.1-18.0)
[2025-06-19] MEDS: 0.9 % SODIUM CHLORIDE 250 ML 25 ML IV (09:26)
== END 2025-06-19 13:55 | disposition home or self-care (01) ==
LOC: INF 08:20
PROVIDERS: PCP Pediatrics; Visit Provider Internal Medicine Nephrology
DX: N18.6 End stage renal disease (principal); Z99.2 Dependence on renal dialysis; D63.1 Anemia in chronic kidney disease
CPT/HCPCS: 36430; 85014; 85018; 86850; J7050; P9016

== ENCOUNTER 2025-08-28 14:11 | Outpatient (CLI) | payer MEDICARE, SELFPAY ==
--- OUTSIDE RECORDS SUMMARY | 2025-08-28 14:17 | XMS_ITS | Encounter Summary ---
[facility] Address [address] [place] [id number] Care Team Providers Care Mixer Operator Hot Metal Name Role Phone Avel Traore MD Primary Care Provider [phone] Reason for Visit * Reason Onset Date Comments replacement PAP device order 05/17/2023 Encounter Details Date Type Department Care Team (Late st Contact Info) Description 05/17/[address] [facility] [address] [place] [address] Nicole Asher MD [address] [place] [address] replacement PAP device order Social History [...] eligible for a new one. Fax is [phone] documented in this encounter Plan of Treatment Not on file documented as of this encounter Visit Diagnoses Not on filedocumented in this encounter Care Teams Mixer Operator Hot Metal Relationship Specialty Start Date End Date Avel Traore MD [address] [place] [address] PCP - General Internal Medicine 11/17/22 documented as of this encounter
--- OUTSIDE RECORDS SUMMARY | 2025-08-28 14:18 | XMS_ITS | Data Portability ---
Author Organization [facility] - [facility] [place] Address [address] [place] [address] Care Team Providers Care Glue Mill Operator Name Role Phone KIRT NEGRETE Primary Care Provider EMY GARZA Rn Cardiac Cath [phone] Assessment No assessment recorded. Plan of Treatment Reminders Order Date Submit Date Provider Last Modified By Organization Details Last Modified Time Details Appointments None recorded. Lab H pylori urea breath test, co2 infrared 2024 025 [facility] (Lab Registration) , [address] [place] [address] [place], [address], 5 18:11:16 hepatic function panel, serum 2024 025 [facility] (Lab Registration) , [address] [place] [address] [place], [address], 5 16:55:36 Referral general surgeon referral 2024 025 justin Guadalupe DO, [address] [place] [address] [place], [address], 5 08:19:00 Procedures None recorded. Surgeries None recorded. Imaging None recorded. Medication Orders None recorded. Patient TargetsNo targets recorded. Patient InstructionsNo instructions recorded. Reason for Referral General Surgeon Referral for Gallstone Referring Physician: Emy Garza [facility]astroenter[facility], Encounter Date: 02/14/2025 Results Created Date Observation Date Name Description Value Unit Range Abnormal Flag Note LastModifiedBy Organization Detail LastModifiedTime 02/15/20 25 02/14/2025 HEPAT IC FUNCT ION PANEL total protein 6.2 g/dL 6.4-8. 2 low Not Available [facility] (Lab Registration) [address] [place], [address], 02/14/2025 16:55:36 02/15/20 25 02/14/2025 HEPAT IC FUNCT ION PANEL albumin 3.1 g/dL 3.4-5. 0 low Not Available [facility] (Lab Registration) [address] [place], [address], 02/14/2025 16:55:36 02/15/20 25 02/14/2025 HEPAT IC FUNCT ION PANEL bilirubin direct 1.1 mg/dL 0.0-0. 3 high Not Available [facility] (Lab Registration) [address] [place], [address], 02/14/2025 16:55:36 02/15/20 25 02/14/2025 HEPAT IC FUNCT ION PANEL bilirubin total 2.0 mg/dL 0.4-1. 5 high Not Available [facility] (Lab Registration) [address] [place], [address], 02/14/2025 16:55:36 02/15/20 25 02/14/2025 HEPAT IC FUNCT ION PANEL AST (SGOT) 21 U/L 15-37 Not Available [facility] (Lab Registration) [address] [place], [address], 02/14/2025 16:55:36 02/15/20 25 02/14/2025 HEPAT IC FUNCT ION PANEL ALT (SGPT) 17 U/L 12-78 Not Available [facility] (Lab Registration) [address] [place], [address], 02/14/2025 16:55:36 02/15/20 25 02/14/2025 HEPAT IC FUNCT ION PANEL alk phosphatase 100 U/L Not Available [facility] (Lab Registration) [address] [place], [address], 02/14/2025 16:55:36 02/15/20 25 02/14/2025 HEPAT IC FUNCT ION PANEL note Unles s other carroll noted testi ng perfo rmed at: [facility] [address] [place] [address] [phone] Erick vásquez MD CLIA: [id number] Not Available [facility] (Lab Registration) [address] [place], [address], 02/14/2025 16:55:36 02/15/20 25 02/14/2025 H. PYLOR I BREAT H TEST note Unles s other carroll noted [facility] ng [facility] [address] [place] [address] 8599 87-36 00 Erick vásquez MD CLIA: [id number] Not Available [facility] (Lab Registration) [address] [place], [address], 02/16/2025 18:11:16 02/15/20 25 02/16/2025 H. PYLOR I BREAT H TEST H pylori breath test NEGATI VE negati ve Perfo rmed at: [address] [address] Lab Direc tor: Ramesh stone PhD, Phone : [phone] Not Available [facility] (Lab Registration) [address] [place], [address], 02/16/2025 18:11:16 Result Notes None recorded. Problems Name Problem SNOMED Code Status Onset Date Resolution Date Notes Provider Name and Address Organization Details Recorded Time Hyperbilirubin emia 81041892 Active 2024 Emy Garza NP [address], [address], [place], [address] [place] [address] & [place] 15:41:44 Gallstone 127579858 Active 2024 Emy Garza NP [address], [address], [place], [address], [place] - [facility] - [facility] & [place] 5 15:41:57 Abdominal bloating 558986173 Active 2024 Emy Garza NP [address], [address], [place], [address], [place] - [facility] - [facility] & [place] 5 15:42:29 Problem Notes None recorded. Procedures Surgical History Date Name Laterality Status Provider Name and Address Organization Details Recorded Time 5 operative procedure on shoulder completed Nara Norman [place] - [facility] [place] & [place] 02/14/2025 14:31:23 2 Pacemaker/Defib rillator completed Nara Norman [place] [facility] [place] & [place] 02/14/2025 14:30:10 3 Colonoscopy completed Nara Elio [place] - [facility] [place] & [place] 02/14/2025 14:26:19 7 Sinus Surgery completed Nara Norman [place] [facility] [place] & [place] 02/14/2025 14:26:19 7 procedure on eyelid completed Nara Norman [place] - [facility] - [facility] & [place] 02/14/2025 14:31:47 Imaging Results None recorded. Procedure Notes None recorded. Medical Equipment None Reported. Allergies Allergen ID Allergen Name Allergen Category Reaction Reaction Severity Criticality Documentation Date Start Date Code Code System Note Provider Name and Address Organization Details Recorded Time 32025 levofloxa devon medicatio n arthralgi a (joint pain) chest pain confusion dizziness lighthead edness nausea severe severe severe severe severe severe Not available 12/16/2022 32861 RxNorm Other react ions and sever ities : 'Vomi ting - Moder ate'. Nara Elio null, [place] - [facility] - [place] & [place] 5 14:26:07 Medications Name Sig Start Date [...] completed Not Available Not Available Not Available Joay-Alka 0.8 mg tablet TAKE 1 TABLET BY [...] Updated DateTime 3 167.64 cm 26.5 kg/m2 60305.1 5 g 97.3 [degF] 105 /min 103/67 mm[Hg] Kati Herrera [facility] & [place] 3 10:56:43 Date Recorded Body height Body mass index (BMI) Body weight Body temperature Oxygen saturation Oxygen saturation in Arterial blood by Pulse oximetry Heart rate Provider Name and Address Organization Details Last Updated DateTime 5 165.1 cm 26.7 kg/m2 17700.2 2 g 98.1 [degF] 97 % 97 % 67 /min Nara Elio [facility] & [place] 5 14:36:14 Date Recorded Body height Body mass index (BMI) Body weight Heart rate Oxygen saturation Oxygen saturation in Arterial blood by Pulse oximetry Body temperature Systolic And Diastolic Provider Name and Address Organization Details Last Updated DateTime 5 165.1 cm 26.9 kg/m2 38519.5 3 g 79 /min 97 % 97 % 98.1 [degF] 130/60 mm[Hg] Chioma Hernandez [facility] & [place] 5 11:43:01 Social History Question Answer Notes LastModified by Organizat ion Details LastModified Time Tobacco Smoking Status Never Smoker Kati Herrera [facility], [facility] & [place] 12/16/2022 11:00:56 Do You Have An Advance [...] anxious, or unable to sleep at night)? [id number] Information not available 02/14/2025 Family History Relationship Description Onset Age of this Age Resolved Age Notes LastModified by Organization Details LastModified Time Mother Hypertensive disorder [email or web address] Not available 2024 14:29:20 Mother Heart disease ksnelling Not available 2024 14:29:41 Father Cerebrovascu lar accident ksnelling Not available 14:29:29 Father Heart disease ksnelling Not available 2024 14:29:41 Medical History Condition Response Coronary Artery Disease Y Gout Y None N Colon Cancer N Kidney Stones N Hyperthyroidism N Emphysema N Hypothyroidism N Glaucoma N Depression N COPD N Diverticulitis/Diverticulosis N Anesthesia Complications N Obstructive Sleep Apnea Y Anxiety Disorder N Hearing Loss N Arthritis N Acid Reflux (GERD) N Cancer N Stroke N Liver Disease N Fibromyalgia N Headaches N Speech Delay N Kidney Disease Y Allergies/Hayfever N Heart Problems N Heart Conditions N Migraines N Thyroid Problems N Kidney or Bladder Problems Y Developmental Delay N Osteoporosis/Osteopenia N Anemia Y [...] Diagnosis SNOMED-CT Code Diagnosis ICD10 Code Diagnosis IMO Codes Diagnosis Note [id number] Rekha Nguyen MD [facility] [id number] [address] [facility], [place] [address] 12/16/2022 10:45:56 12/16/2022 11:21:02 Sebaceous cyst of skin 325029521 L72.3 Advised patient this is not malignant. Explained if this is not bothering him, we should not remove it. Should it become infected or start to bother him we can discuss removal. Encouraged him to keep the area clean. Will see him back as needed. [id number] Emy Garza NP [facility] [address] [place] [address] 02/14/2025 14:16:37 02/14/2025 15:59:43 Hyperbilirubinemia 95228775 E80.6 65778 Labs from 11/2024 with total bilirubin 2.1, indirect bilirubin 1.18, direct bilirubin 0.92. Normal appearance of liver and CBD on ultrasound 01/04/25. Denies jaundice or family history of liver disease. Recommend follow up hepatic function panel today. Gallstone [id number] K80. 20 [id number] Cholelithi asis with borderline gallbladde r wall thickening measuring 3 mm on liver ultrasound 01/04/2025 . Given findings of cholelithi asis as well as elevated bilirubin recommend evaluation by General surgery. Abdominal bloating 48444 9008 R14.0 42721 Two month history generalize d abdominal bloating and gas. Recommend H. pylori breath test today. Possibly secondary to medication s for ESRD. [id number] DO Rebeca DING [facility] [address] [facility], [place] [address] 02/21/2025 11:38:46 02/21/2025 13:49:58 Biliary calculus [id number] K80.20 [id number] - patient has signs and symptoms likely asymptomat ic cholelithi asis- patient's flatulence is not likely related to his underlying cholelithi asis- patient does have end-stage renal disease with certain medication s for electrolyt e management which can cause GI upset- patient's case was discussed with GI with recommenda tions for observatio n for what is likely [...] Guarantor Name 02/14/2025 1 [place] ([place]ICARE[place] Dallas Hernandezbs [id number] Dallas Colbert Sukhjinder 02/18/2025 2 [employer] (MEDICARE SUPPLEMENT) Dallas Colbert Sukhjinder [id number] Dallas Colbert Sukhjinder Notes Date Note Type Note Provider Name and Address Organization Details Recorded Time 12/16/2022 text/html ROS as noted in the HPI 72yo male in the office today to discuss a growth on the back of his head. States it has only been present for a couple of months. It was larger at one time when he saw his PCP. It has gone down significantly since then. Denies any drainage. Rekha Nguyen MD [address] [facility], [place], [address], [facility] & [place] 12/25/2022 15:00:01 02/14/2025 text/html 75-year-old male with [...] bowel movements. denies nausea, vomiting, jaundice. Emy Garza NP [address] [place] [address], [address], [place], [address], [facility] & [place] 03/30/2025 11:43:31 02/21/2025 text/html ROS as noted in the HPI 75-year-old male presents for evaluation for abdominal bloating, significant fluctuance, and occasional diarrhea. Patient also has elevated liver enzymes for which he underwent a liver ultrasound which revealed cholelithiasis. Patient denies fatty food digestive issues including epigastric/right upper quadrant abdominal pain, nausea, vomiting. patient states his largest issue is significant fluctuance. DARRYL GUADALUEP, [address], [address], [place], [address], [place] - [facility] - [place] & [place] 02/22/2025 20:53:20
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
--- OUTSIDE RECORDS SUMMARY | 2025-08-28 14:18 | XMS_ITS | Encounter Summary ---
[facility] Organization [facility] Address [address] [place] [address] Care Team Providers Care Easement Man Name Role Phone Avel Traore MD Primary Care Provider [phone] Reason for Visit * Reason Comments Med Refill Encounter Details Date Type Department Care Team (Late st Contact Info) Description 08/16/2025 Refill [facility] [address] [place] [address] [place] [address] Avel Traore MD [address] [place] [address] [place] [address] Seasonal allergic rhinitis due to pollen [...] pollen documented in this encounter Care Teams Easement Man Relationship Specialty Start Date End Date Avel Traore MD [address] [place] [address] PCP - General Internal Medicine 11/17/22 documented as of this encounter
--- OUTSIDE RECORDS SUMMARY | 2025-08-28 14:18 | XMS_ITS | Encounter Summary ---
[facility] Organization [facility] Address [address] [place] [address] Care Team Providers Care Process Control Supervisor Name Role Phone Avel Traore MD Primary Care Provider [phone] Encounter Details Date Type Department Care Team (Late st Contact Info) Description 08/08/2012 Conversion Encounter [facility] HISTORICAL CONV [address] [place] [address] Interface, See Report Social History [...] Lukas Mayorga M.D. ' Arianna Fish APRN [facility], [address] [facility] OFFICE NOTE SAHRA SLAUGHTER : 1950 DATE [...] A2. However, this should not cause any correction complications. Other confounding factors are vitamin B12 [...] plan. Lukas Mayorga M.D.* FB/rxalw Doc. ID [id number] Rev. #0 cc: Gian Keller M.D.* Dr. Torres, [place], [place] Page 3 of 3 Page 1 of 3 Authenticated by LUKAS MAYORGA MD On 08/24/2012 12:02:20 PM * Interface, See Report - 08/08/2012 8:59 AM EDT Maira Moore M. Carlisle, M.D. ' Darwin Edgar M.D. ' Gonzalo Zendejas, PABLO Head M.D. ' Kenneth Phelps M.D. ' Lukas Mayorga M.D. ' Arianna Fish APRN [facility], [address] [place] [address] [employer] OFFICE NOTE SAHRA SLAUGHTER : 1950 DATE [...] level. Lukas Mayorga M.D.* FB/rxalw Doc. ID [id number] Rev. #0 cc: Gian Keller M.D.* Nicholas Torres M.D.* Page 2 of 2 Page 1 of 2 Authenticated by LUKAS MAYORGA MD On 11/15/2012 04:16:53 PM * Interface, See Report - 08/08/2012 8:59 AM EDT Edvin Somers M.D. ' Joshua Weaver M.D. ' Darwin Edgar M.D. ' PABLO Trujillo M.D. ' Kenneth Phelps M.D. ' Firas Gadsden, MPapito Fish APRN [address] [facility], [address] [place] [id number] [employer] OFFICE NOTE SAHRA SLAUGHTER : 1950 DATE [...] level. Lukas Mayorga M.D.* JOE/rxalw Doc. ID [id number] Rev. #0 cc: Nicholas Torres M.D.* Gian [...] Mayorga M.D. ' Arianna Fish APRN [address] [facility], [facility] [address] [place] [address] [employer] OFFICE NOTE SAHRA SLAUGHTER : 1950 DATE [...] anemia. Lukas Mayorga M.D.* FB/rxalw Doc. ID [id number] Rev. #0 cc: Gian Keller M.D.* Nicholas Torres M.D.* SAHRA SLAUGHTER : 1950 DATE OF VISIT: 05/01/2013 Page 3 of 3 Page 1 of 3 DOCUMENT CODE :[facility]: PHYSICIAN CODE :[id number]: Authenticated by LUKAS MAYORGA MD On 05/02/2013 06:07:49 PM * Interface, See Report - 08/08/2012 8:59 AM EDT Edvin Somers M.D. ' Joshua Weaver M.D. ' Darwin Edgar M.D. ' PABLO Trujillo M.D. ' Kenneth Phelps M.D. ' Lukas Mayorga M.D. ' Arianna Fish APRN [address] [place] [address], [facility] [address] [place] [address] [employer] OFFICE NOTE SAHRA SLAUGHTER : 1950 DATE [...] B12. Lukas Mayorga M.D.* FB/rxalw Doc. ID [id number] Rev. #0 cc: Gian Keller M.D.* Nicholas Torres M.D.* Bubba Solares D.O.* SAHRA SLAUGHTER : 1950 DATE OF VISIT: 08/07/2013 Page 2 of 2 Page 1 of 2 DOCUMENT CODE :[facility]: PHYSICIAN CODE :[id number]: Authenticated by LUKAS MAYORGA MD On 08/09/2013 03:34:06 PM * Interface, See Report - 08/08/2012 8:59 AM EDT Edvin Somers M.D. ' Joshua Weaver M.D. ' Darwin Edgar M.D. ' Maira Gonzalez M.D. ' Jayla Rahman M.D. ' Arianna Fihs APRN ' Park Arellano APRN [facility], [facility] [address] [place] [address] [employer] OFFICE NOTE SAHRA SLAUGHTER : 1950 DATE [...] weeks. Lukas Mayorga M.D.* FB/rxblt Doc. ID [id number] Rev. #0 cc: Gian Keller M.D.* Nicholas Torres M.D.* Bubba Solares D.O.* SAHRA SLAUGHTER : 1950 DATE OF VISIT: 11/06/2013 Page 2 of 3 Page 1 of 3 DO NOT TEXT EDIT THIS LINE :[facility]:[id number]: Authenticated by LUKAS MAYORGA MD On 11/07/2013 04:34:54 PM documented in this encounter Plan of Treatment Not on file documented as of this encounter Visit Diagnoses Not on filedocumented in this encounter Additional Health Concerns Infection Onset Date Last Indicated Resolved Time COVID Screen (preop/placement) 10/17/2021 10/17/2021 10/17/2021 11:58 PM EST documented as of this encounter Care Teams Process Control Supervisor Relationship Specialty Start Date End Date Avel Traore MD [address] [place] [address] PCP - General Internal Medicine 11/17/22 documented as of this encounter
[2025-08-28 15:16] LABS: Hematocrit 36.2 % (42.0-52.0); Hemoglobin 11.3 g/dL (14.1-18.0); Immature Granulocytes % 0.4 %; Mean Corpuscular HGB Conc 31.2 g/dL (31.8-35.4); Mean Corpuscular Hemoglobin 21.3 pg (27.0-31.2); Mean Corpuscular Volume 68.3 fl (80-94); Nucleated Red Blood Cells % 0.4 %; Platelet Count 152 K/mm3 (142-424); Red Blood Count 5.30 M/mm3 (4.60-6.20); Red Cell Distribution Width-SD 43.2 fL; White Blood Count 4.8 K/mm3 (4.8-10.8)
[2025-08-28 15:27] LABS: Anion Gap 14.3 mEq/L (5-15); Blood Urea Nitrogen 29 mg/dl (9-20); Calcium 9.4 mg/dl (8.4-10.2); Carbon Dioxide 31 mmol/L (22.0-30.0); Chloride 98 mmol/L (98-107); Estimated Glomerular Filt Rate 9 ml/min (>60); GFR (African American) 11 ML/MIN (>60); Glucose 80 mg/dl (74-100); Potassium 5.3 mmoL/L (3.5-5.1); Sodium 138 mmol/L (136-145)
[2025-08-28 15:40] LABS: Free Thyroxine Index 3.3 ug/dL (5.93-13.13); T4 (Thyroxine) 8.0 ug/dl (5.53-11.0); Triiodothryronine (T3) Uptake 41 % (23.5-40.5)
[2025-08-28 15:42] LABS: Creatinine,Serum 6.30 mg/dl (0.66-1.25)
[2025-08-28 15:53] LABS: Thyroid Stimulating Hormone 3.44 uIU/mL (0.465-4.68)
[2025-08-28 16:12] LABS: NT Pro Brain Natriuretic Pep. 200000 pg/mL (0-450)
== END 2025-08-28 23:59 | disposition home or self-care (01) ==
LOC: LAB 14:12
PROVIDERS: PCP Pediatrics; Visit Provider Internal Medicine
DX: I50.20 Unspecified systolic (congestive) heart failure (principal); R94.31 Abnormal electrocardiogram [ECG] [EKG]
CPT/HCPCS: 36415; 80048; 83880; 84436; 84443; 84479; 85025

== ENCOUNTER 2025-09-04 07:45 | Outpatient (CLI) | payer MEDICARE, SELFPAY ==
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
--- OUTSIDE RECORDS SUMMARY | 2025-09-04 07:47 | XMS_ITS | Encounter Summary ---
Author Organization [employer] ([place], [place], [place], [place]) Address [address] [place] [address] Care Team Providers Care Guide Dog Instructor Name Role Phone Avel Traore MD Primary Care Provider [phone] Encounter Details Date Type Department Care Team (Late st Contact Info) Description 06/15/2019 Transcribed Document [facility] Family Medicine [facility] [place] [address] Phil Singh MD [address] [place] [address] Social History Tobacco Use Types Packs/Day Years Used Date Smoking Tobacco: Never Assessed Sex and Gender Information Value Date Recorded Sex Assigned at Not on file Legal Sex Male 1:29 PM CDT Gender Identity Not on file Sexual Orientation Not on file documented as of this encounter Miscellaneous Notes * Cerner Conversion Note - Phil Singh MD - 06/15/2019 9:36 AM CDT Patient [...] be done for people who: ??? Have Qdtzm-Cjhgmeboz-Yuqpr syndrome. ??? Have fast heart rhythms (tachycardia). [...] including vitamins, herbs, eye drops, creams, and deqz-qid-trsihhh medicines. ??? Any problems you or family [...] 04/03/2010 Document Revised: 10/04/2017 Document Reviewed: 10/04/2017 [employer] Interactive Patient Education ? 2019 Designlab. documented in this encounter Plan of Treatment Not on file documented as of this encounter Visit Diagnoses Not on filedocumented in this encounter Care Teams Guide Dog Instructor Relationship Specialty Start Date End Date Avel Traore MD [address] [place] [address] [place] [address] PCP - General General Internal Medicine 09/21/24 documented as of this encounter
--- OUTSIDE RECORDS SUMMARY | 2025-09-04 07:48 | XMS_ITS | Encounter Summary ---
Author Organization [email or web address] ([place], [place], [place], [place]) Address [address] [place] [address] Care Team Providers Care Petroleum Terminal Plant Operator Name Role Phone Avel Traore MD Primary Care Provider [phone] Encounter Details Date Type Department Care Team (Late st Contact Info) Description 06/15/2019 Transcribed Document [facility] Family Medicine [facility] [place] [address] ProviderPhil MD [address] [place] [address] Social History Tobacco Use Types Packs/Day Years Used Date Smoking Tobacco: Never Assessed Sex and Gender Information Value Date Recorded Sex Assigned at Not on file Legal Sex Male 1:29 PM CDT Gender Identity Not on file Sexual Orientation Not on file documented as of this encounter Miscellaneous Notes * Cerner Conversion Note - Phil Singh MD - 06/15/2019 5:[address] [facility] [address] [address] [address] :1950 [...] Comments Appointment has been made Where: [address] [facility] [address] [place] [address]- Medications What How Much When Instructions Next Dose apixaban (Eliquis 5 mg oral tablet) 1 Tablet(s) Oral Interval Every 12 Hours Pt given samples. flecainide (flecainide 100 mg oral tablet) 0.5 Tablet(s) Oral Two Times A Day Refills: 6 Pickup at [facility] 493 furosemide (Lasix 20 mg oral tablet) [...] oral tablet) Oral Every Evening Pharmacy Information [facility]: [address] [place], [place] [phone] Take your medications faithfully. Do NOT skip [...] be done for people who: ??? Have Efivg-Nhbocqcrg-Lnbda syndrome. ??? Have fast heart rhythms (tachycardia). [...] including vitamins, herbs, eye drops, creams, and yrpb-emy-xkiujat medicines. ??? Any problems you or family [...] 04/03/2010 Document Revised: 10/04/2017 Document Reviewed: 10/04/2017 [employer] Interactive Patient Education ?? 2019 OSIX. Emergency Awareness and Preventative Care STROKE is [...] Assistance with quitting is available by contacting 4-513-EUZY-NOW. This is a free resource providing counseling, [...] was given the opportunity to ask questions. Patient/Mold Making Plastics Sheets Supervisor Name: Patient/Mold Making Plastics Sheets Supervisor Signature: Relationship to Patient: Clinician/Hospital Mold Making Plastics Sheets Supervisor Signature: Date: Electronically signed by aYneth, Jerzy Conversion Chucking And Boring Machine Operator Cerner at 03/17/2023 8:56 PM CDT documented in this encounter Plan of Treatment Not on file documented as of this encounter Visit Diagnoses Not on filedocumented in this encounter Care Teams Petroleum Terminal Plant Operator Relationship Specialty Start Date End Date Avel Traore MD [address] [place] [address] PCP - General General Internal Medicine 09/21/24 documented as of this encounter
--- OUTSIDE RECORDS SUMMARY | 2025-09-04 07:48 | XMS_ITS | Encounter Summary ---
Author Organization [employer] ([place], [place], [place], [place]) Address [address] [place] [address] Care Team Providers Care Machine I Coremaker Name Role Phone Avel Traore MD Primary Care Provider [phone] Encounter Details Date Type Department Care Team (Late st Contact Info) Description 06/15/2019 Transcribed Document [facility] Family Medicine [facility] [place] [address] ProviderPhil MD [address] [place] [address] Social History Tobacco Use Types Packs/Day [...] on filedocumented in this encounter Care Teams Machine I Coremaker Relationship Specialty Start Date End Date Avel Traore MD [address] [place] [address] [place] [address] PCP - General General Internal Medicine 09/21/24 documented as of this encounter
--- OUTSIDE RECORDS SUMMARY | 2025-09-04 07:48 | XMS_ITS | Encounter Summary ---
Author Organization [employer] ([place], [place], [place], [place]) Address [address] [place] [address] Care Team Providers Care Sales Agent Name Role Phone Avel Traore MD Primary Care Provider [phone] Encounter Details Date Type Department Care Team (Late st Contact Info) Description 06/15/2019 Transcribed Document [facility] Family Medicine [facility] [place] [address] ProviderPhil MD [address] [place] [address] Social History Tobacco Use Types Packs/Day [...] Reason for Hospitalization Mr. Brody presented to [facility] for planned LVOT ablation on 06/13 Hospital Course Mr. Brody presented to [facility] for planned LVOT ablation on 06/13, underwent [...] tablet 5 mg = 1 Tab, Oral, [id number] flecainide 100 mg oral tablet 50 mg [...] filedocumented in this encounter Care Teams Sales Agent Relationship Specialty Start Date End Date Avel Traore MD [address] [place] [address] [place] [address] PCP - General General Internal Medicine 09/21/24 documented as of this encounter
--- OUTSIDE RECORDS SUMMARY | 2025-09-04 07:48 | XMS_ITS | Encounter Summary ---
Author Organization [employer] ([place], [place], [place], [place]) Address [address] [place] [address] Care Team Providers Care Webbing Weaver Name Role Phone Avel Traore MD Primary Care Provider [phone] Encounter Details Date Type Department Care Team (Late st Contact Info) Description 06/15/2019 Transcribed Document [facility] Family Medicine [facility] [place] [address] ProviderPhil MD [address] [place] [address] Social History Tobacco Use Types Packs/Day [...] of the form. Electronically signed by Yaneth, [facility] Conversion Toolmaker Grade Three Cerner at 03/17/2023 8:53 PM CDT documented in this encounter Plan of Treatment Not on file documented as of this encounter Visit Diagnoses Not on filedocumented in this encounter Care Teams Webbing Weaver Relationship Specialty Start Date End Date Avel Traore MD [address] [place] [address] [place] [address] PCP - General General Internal Medicine 09/21/24 documented as of this encounter
--- OUTSIDE RECORDS SUMMARY | 2025-09-04 07:48 | XMS_ITS | Encounter Summary ---
Author Organization [employer] ([place], [place], [place], [place]) Address [address] [place] [address] Care Team Providers Care Livestock Sales Representative Name Role Phone Avel Traore MD Primary Care Provider [phone] Encounter Details Date Type Department Care Team (Late st Contact Info) Description 06/15/2019 Transcribed Document [facility] [place] [facility] [place] [address] ProviderPhil MD [facility] [place] [address] Social History Tobacco Use Types [...] On: 06/15/2019 13:26 EDT by Mane Childers STRATEGIC MANAGER Quick Look Assessment Level of Consciousness : Alert, Awake Affect/Behavior : Appropriate, Calm Orientation : Oriented x 4 Mane Childers RN - 06/15/2019 13:26 EDT ED General-Functional Assess Information Obtained From : Patient Communication Barrier : None Primary Language : Italian Any Spiritual/Cultural Needs or Requests : No [...] EDT Integumentary Assessment Integumentary Assessment WDL : Mane Moeller RN - 06/15/2019 13:26 EDT Neurologic ASMT, ED Neurologic Assessment WDL : Mane Moeller RN - 06/15/2019 13:26 EDT Electronically signed by Yaneth [facility] Conversion Route Sales Manager Cerner at 03/17/2023 9:01 PM CDT documented in this encounter Plan of Treatment Not on file documented as of this encounter Visit Diagnoses Not on filedocumented in this encounter Care Teams Livestock Sales Representative Relationship Specialty Start Date End Date Avel Traroe MD [address] [place] [address] [place] [address] PCP - General General Internal Medicine 09/21/24 documented as of this encounter
--- OUTSIDE RECORDS SUMMARY | 2025-09-04 07:48 | XMS_ITS | Encounter Summary ---
Author Organization [employer] ([place], [place], [place], [place]) Address [address] [place] [address] Care Team Providers Care Pe Manager Name Role Phone Avel Traore MD Primary Care Provider [phone] Encounter Details Date Type Department Care Team (Late st Contact Info) Description 06/15/2019 Transcribed Document [facility] Family Medicine [facility] [place] [address] ProviderPhil MD [address] [place] [address] Social History Tobacco Use Types Packs/Day Years Used Date Smoking Tobacco: Never Assessed Sex and Gender Information Value Date Recorded Sex Assigned at Not on file Legal Sex Male 1:29 PM CDT Gender Identity Not on file Sexual Orientation Not on file documented as of this encounter Miscellaneous Notes * Cerner Conversion Note - Phil Singh MD - 06/15/2019 10:15 AM CDT [facility] [address] [address] [address] :1950 [...] EDT Comments Appointment has been made Where: [address] [place] [address] [place] [address]- Medications What How Much When Instructions Next [...] oral tablet) Oral Every Evening Pharmacy Information [facility]: [address] [place], [place] [phone] Take your medications faithfully. Do NOT skip [...] be done for people who: ??? Have Jiobp-Fklfkjend-Orgby syndrome. ??? Have fast heart rhythms (tachycardia). [...] including vitamins, herbs, eye drops, creams, and sutv-cns-qjvxcdc medicines. ??? Any problems you or family [...] 04/03/2010 Document Revised: 10/04/2017 Document Reviewed: 10/04/2017 [employer] Interactive Patient Education ?? 2019 Fluid. Emergency Awareness and Preventative Care STROKE is [...] Assistance with quitting is available by contacting 4-583-QQZL-NOW. This is a free resource providing counseling, [...] was given the opportunity to ask questions. Patient/Electronic Device Monitor Name: Patient/Electronic Device Monitor Signature: Relationship to Patient: Clinician/Hospital Electronic Device Monitor Signature: Date: Electronically signed by Yaneth [facility] Conversion Department Editor Cerner at 03/17/2023 9:09 PM CDT documented in this encounter Plan of Treatment Not on file documented as of this encounter Visit Diagnoses Not on filedocumented in this encounter Care Teams Pe Manager Relationship Specialty Start Date End Date Avel Traore MD [address] [place] [address] PCP - General General Internal Medicine 09/21/24 documented as of this encounter
--- OUTSIDE RECORDS SUMMARY | 2025-09-04 07:48 | XMS_ITS | Encounter Summary ---
Author Organization [employer] ([place], [place], [place], [place]) Address [address] [place] [address] Care Team Providers Care Grease Maker Head Name Role Phone Avel Traore MD Primary Care Provider [phone] Encounter Details Date Type Department Care Team (Late st Contact Info) Description 06/15/2019 Transcribed Document [facility] Family Medicine [facility] [place] [address] ProviderPhil MD [address] [place] [address] Social History Tobacco Use Types Packs/Day [...] Edvin Fallon Rn - 06/15/2019 9:35 EDT documented in this encounter Plan of Treatment Not on file documented as of this encounter Visit Diagnoses Not on filedocumented in this encounter Care Teams Grease Maker Head Relationship Specialty Start Date End Date Avel Traore MD [address] [place] [address] PCP - General General Internal Medicine 09/21/24 documented as of this encounter
--- OUTSIDE RECORDS SUMMARY | 2025-09-04 07:48 | XMS_ITS | Encounter Summary ---
Author Organization [employer] ([place], [place], [place], [place]) Address [address] [facility] [place] [address] Care Team Providers Care Aircraft Technician Name Role Phone Avel Traore MD Primary Care Provider [phone] Encounter Details Date Type Department Care Team (Late st Contact Info) Description 06/15/2019 Transcribed Document [facility] Family [facility] [place] [address] ProviderPhil MD [address] [place] [address] Social History Tobacco Use Types Packs/Day Years Used Date Smoking Tobacco: Never Assessed Sex and Gender Information Value Date Recorded Sex Assigned at Not on file Legal Sex Male 1:29 PM CDT Gender Identity Not on file Sexual Orientation Not on file documented as of this encounter Miscellaneous Notes * Cerner Conversion Note - Phil Singh MD - 06/15/2019 5:24 PM CDT [facility] [address] [address] [address] :1950 Visit [...] [facility] [address] [place] [address]- Medications What How Much When Instructions Next Dose apixaban (Eliquis 5 mg oral tablet) 1 Tablet(s) Oral Interval Every 12 Hours Pt given samples. flecainide (flecainide 100 mg oral tablet) 0.5 Tablet(s) Oral Two Times A Day Refills: 6 Pickup at [facility] 493 furosemide (Lasix 20 mg [...] oral tablet) Oral Every Evening Pharmacy Information [facility] 493: [address] [place] [phone] Take your medications faithfully. Do NOT skip [...] be done for people who: ??? Have Fbean-Yowxsnynd-Coint syndrome. ??? Have fast heart rhythms (tachycardia). [...] including vitamins, herbs, eye drops, creams, and fraa-uvk-ebtajbp medicines. ??? Any problems you or family [...] 04/03/2010 Document Revised: 10/04/2017 Document Reviewed: 10/04/2017 [employer] Interactive Patient Education ?? 2019 Force-A. Emergency Awareness and Preventative Care STROKE is [...] Assistance with quitting is available by contacting 5-507-MKOC-NOW. This is a free resource providing counseling, [...] was given the opportunity to ask questions. Patient/Naphthalene Operator Helper Name: Patient/Naphthalene Operator Helper Signature: Relationship to Patient: Clinician/Hospital Naphthalene Operator Helper Signature: Date: Electronically signed by Yaneth, Jerzy Conversion Planetarium Sky Show Technician Cerner at 03/17/2023 8:56 PM CDT documented in this encounter Plan of Treatment Not on file documented as of this encounter Visit Diagnoses Not on filedocumented in this encounter Care Teams Aircraft Technician Relationship Specialty Start Date End Date Avel Traore MD [address] [place] [address] PCP - General General Internal Medicine 09/21/24 documented as of this encounter
--- OUTSIDE RECORDS SUMMARY | 2025-09-04 07:48 | XMS_ITS | Encounter Summary ---
Author Organization [employer] ([place], [place], [place], [place]) Address [address] [facility] [place] [address] Care Team Providers Care Runner Out Name Role Phone Avel Traore MD Primary Care Provider [phone] Encounter Details Date Type Department Care Team (Late st Contact Info) Description 06/15/2019 Transcribed Document [facility] Family Medicine [facility] [place] [address] ProviderPhil MD [address] [place] [address] Social History Tobacco Use Types Packs/Day Years Used Date Smoking Tobacco: Never Assessed Sex and Gender Information Value Date Recorded Sex Assigned at Not on file Legal Sex Male 1:29 PM CDT Gender Identity Not on file Sexual Orientation Not on file documented as of this encounter Miscellaneous Notes * Cerner Conversion Note - Phil Singh MD - 06/15/2019 5:27 PM CDT [facility] [address] [address] [address] :1950 [...] Comments Appointment has been made Where: [address] [facility] [address] [place] [address]- Medications What How Much When Instructions Next Dose apixaban (Eliquis 5 mg oral tablet) 1 Tablet(s) Oral Interval Every 12 Hours Pt given samples. flecainide (flecainide 100 mg oral tablet) 0.5 Tablet(s) Oral Two Times A Day Refills: 6 Pickup at [facility] 493 furosemide (Lasix 20 mg oral [...] oral tablet) Oral Every Evening Pharmacy Information [facility] 493: [address] [place], [place] [phone] Take your medications faithfully. Do NOT skip [...] be done for people who: ??? Have Zleek-Lwrhuzdqo-Cuvcw syndrome. ??? Have fast heart rhythms (tachycardia). [...] including vitamins, herbs, eye drops, creams, and msrs-yfe-ijoiedp medicines. ??? Any problems you or family [...] 04/03/2010 Document Revised: 10/04/2017 Document Reviewed: 10/04/2017 [employer] Interactive Patient Education ?? 2019 Virident Systems. Emergency Awareness and Preventative Care STROKE is [...] Assistance with quitting is available by contacting 9-944-HZIQ-NOW. This is a free resource providing counseling, [...] was given the opportunity to ask questions. Patient/Beauty Counselor Name: Patient/Beauty Counselor Signature: Relationship to Patient: Clinician/Hospital Beauty Counselor Signature: Date: documented in this encounter Plan of Treatment Not on file documented as of this encounter Visit Diagnoses Not on filedocumented in this encounter Care Teams Runner Out Relationship Specialty Start Date End Date Avel Traore MD [address] [place] [address] PCP - General General Internal Medicine 09/21/24 documented as of this encounter
--- OUTSIDE RECORDS SUMMARY | 2025-09-04 07:51 | XMS_ITS | Encounter Summary ---
Author Organization [employer] ([place], [place], [place], [place]) Address [address] [place] [address] Care Team Providers Care Museum Host/Hostess Name Role Phone Avel Traore MD Primary Care Provider [phone] Encounter Details Date Type Department Care Team (Late st Contact Info) Description 06/17/2019 Transcribed Document [facility] Family Medicine [facility] [place] [address] ProviderPhil MD [facility] [address] Social History Tobacco Use Types [...] EDT Performed On: 06/17/2019 4:00 EDT by uLis Coffey Care [facility] Unit Coord Height and Weight, Routine Routine Weight Source : Standing scale Routine Weight Entry Format : Cotton Routine Weight, Pounds : 182 lb Routine Weight, Ounces : 6 oz Routine Weight Calculation : 82.9 kg Height Source : Stated Height Entry Format : Cotton Height, Feet : 5 ft Height, Inches : 7 Inch Clinical Height : 170.18 cm Body Surface Area (BSA), Routine : 1.95 m2 Body Mass Index (BMI), Routine : 28.62 kg/m2 Luis Coffey Care Asst-Health Unit [facility] - 06/17/2019 6:21 EDT Electronically signed by Yaneth, [facility] Conversion Quarter Lining Smoother Cerner at 03/17/2023 9:09 PM CDT documented in this encounter Plan of Treatment Not on file documented as of this encounter Visit Diagnoses Not on filedocumented in this encounter Care Teams Museum Host/Hostess Relationship Specialty Start Date End Date Avel Traore MD [address] [place] [address] [place] [address] PCP - General General Internal Medicine 09/21/24 documented as of this encounter
--- OUTSIDE RECORDS SUMMARY | 2025-09-04 07:51 | XMS_ITS | Encounter Summary ---
[facility] Address [address] [place] [address] Care Team Providers Care Delivery Tech Name Role Phone Avel Traore MD Primary Care Provider [phone] Encounter Details Date Type Department Care Team (Late st Contact Info) Description 08/08/2012 Conversion Encounter [facility] HISTORICAL CONV [address] [place] [address] Interface, See Report Social History [...] Lukas Mayorga M.D. ' Arianna Fish APRN [facility], [address] OFF[address] NOTE SAHRA SLAUGHTER : 1950 DATE [...] A2. However, this should not cause any senior living complications. Other confounding factors are vitamin B12 [...] plan. Lukas Mayorga M.D.* FB/rxalw Doc. ID [id number] Rev. #0 cc: Gian Keller M.D.* Dr. Torres, [place], [place] Page 3 of 3 Page 1 of 3 Authenticated by LUKAS MAYORGA MD On 08/24/2012 12:02:20 PM * Interface, See Report - 08/08/2012 8:59 AM EDT Maira Moore M. Owen, M.D. ' Darwin Edgar M.D. ' Gonzalo Zendejas, PABLO Head M.D. ' Kenneth Phelps M.D. ' Lukas Mayorga M.D. ' Arianna Fish APRN [facility], [address] [place] [address] [employer] OFFICE NOTE SAHRA SLAUGHTER : 1950 DATE [...] level. Lukas Mayorga M.D.* FB/rxalw Doc. ID [id number] Rev. #0 cc: Gian Keller M.D.* Nicholas Torres M.D.* Page 2 of 2 Page 1 of 2 Authenticated by LUKAS MAYORGA MD On 11/15/2012 04:16:53 PM * Interface, See Report - 08/08/2012 8:59 AM EDT Edvin Somers M.D. ' Joshua Weaver M.D. ' Darwin Edgar M.D. ' PABLO Trujillo M.D. ' Kenneth Phelps M.D. ' Firas Fred, MPapito Fish APRN [address] [facility], [address] [place] [id number] [employer] OFFICE NOTE SAHRA SLAUGHTER : 1950 DATE [...] level. Lukas Mayorga M.D.* JOE/rxalw Doc. ID [id number] Rev. #0 cc: Nicholas Torres M.D.* Gian [...] Mayorga M.D. ' Arianna Fish APRN [address] [facility], [facility] [address] [place] [address] [employer] OFFICE NOTE SAHRA SLAUGHTER : 1950 DATE [...] anemia. Lukas Mayorga M.D.* FB/rxalw Doc. ID [id number] Rev. #0 cc: Gian Keller M.D.* Nicholas Torres M.D.* SAHRA SLAUGHTER : 1950 DATE OF VISIT: 05/01/2013 Page 3 of 3 Page 1 of 3 DOCUMENT CODE :[facility]: PHYSICIAN CODE :[id number]: Authenticated by LUKAS MAYORGA MD On 05/02/2013 06:07:49 PM * Interface, See Report - 08/08/2012 8:59 AM EDT Edvin Somers M.D. ' Joshua Weaver M.D. ' Darwin Edgar M.D. ' PABLO Trujillo M.D. ' Kenneth Phelps M.D. ' Lukas Mayorga M.D. ' Arianna Fish APRN [address] [place] [address], [facility] [address] [place] [address] [employer] OFFICE NOTE SAHRA SLAUGHTER : 1950 DATE [...] B12. Lukas Mayorga M.D.* FB/rxalw Doc. ID [id number] Rev. #0 cc: Gian Keller M.D.* Nicholas Torres M.D.* Bubba Solares D.O.* SAHRA SLAUGHTER : 1950 DATE OF VISIT: 08/07/2013 Page 2 of 2 Page 1 of 2 DOCUMENT CODE :[facility]: PHYSICIAN CODE :[id number]: Authenticated by LUKAS MAYORGA MD On 08/09/2013 03:34:06 PM * Interface, See Report - 08/08/2012 8:59 AM EDT Edvin Somers M.D. ' Joshua Weaver M.D. ' Darwin Edgar M.D. ' Maira Gonzalez M.D. ' Jayla Rahman M.D. ' Arianna Fish APRN ' Park Arellano APRN [facility], [facility] [address] [place] [address] [employer] OFFICE NOTE SAHRA SLAUGHTER : 1950 DATE [...] go over the blood work results with Shara. I reassured him that his anemia is stable. 2. Patient's ferritin has been drifting down, however, he had a thorough evaluation that was negative. 3. Patient will come back to see me in three months with repeat CBC, ferritin, and vitamin B12. 4. Will continue B12 1000 mcg IM every two weeks. Lukas Mayorga M.D.* FB/rxblt Doc. ID [id number] Rev. #0 cc: Gian Keller M.D.* Nicholas Torres M.D.* Bubba Solares D.O.* SAHRA SLAUGHTER : 1950 DATE OF VISIT: 11/06/2013 Page 2 of 3 Page 1 of 3 DO NOT TEXT EDIT THIS LINE :[facility]:[id number]: Authenticated by LUKAS MAYORGA MD On 11/07/2013 04:34:54 PM documented in this encounter Plan of Treatment Not on file documented as of this encounter Visit Diagnoses Not on filedocumented in this encounter Additional Health Concerns Infection Onset Date Last Indicated Resolved Time COVID Screen (preop/placement) 10/17/2021 10/17/2021 10/17/2021 11:58 PM EST documented as of this encounter Care Teams Delivery Tech Relationship Specialty Start Date End Date Avel Traore MD [address] [place] [address] PCP - General Internal Medicine 11/17/22 documented as of this encounter
--- OUTSIDE RECORDS SUMMARY | 2025-09-04 07:51 | XMS_ITS | Encounter Summary ---
Author Organization [employer] ([place], [place], [place], [place]) Address [address] [place] [address] Care Team Providers Care Air Traffic Instructor Name Role Phone Avel Traore MD Primary Care Provider [phone] Encounter Details Date Type Department Care Team (Late st Contact Info) Description 06/16/2019 Transcribed Document [facility] [place] [facility] [place] [address] ProviderPhil MD [facility] [place] [address] Social History Tobacco Use Types [...] On: 06/16/2019 13:21 EDT by MARIANNA GALARZA Coordinating Producer-Marine Rigger Initial Assessment I Previously Documented Living Environment [...] Yes Legal Guardian : No MARIANNA GALARZA Coordinating Producer-Marine Rigger - 06/16/2019 13:21 EDT Initial Assessment II Sensory and Motor Deficits : None Current Home Treatments and Equipment : BiPAP Does the Patient have a Floor to SNF Benefit? : Yes MARIANNA GALARZA Coordinating Producer-Marine Rigger - 06/16/2019 13:21 EDT Discharge Needs I Anticipated Discharge To, CM : Home independently Current Home Treatment/Equipment : Current Home Treatment/Equipment No qualifying data available. Post Acute/Home Treatments : None MARIANNA GALARZA Coordinating Producer-Marine Rigger - 06/16/2019 13:21 EDT Discharge Needs II Professional Skilled Services : Professional Skilled Services No qualifying data available. Needs Assistance with Transportation : No Discharge Options Discussed with Patient : Home Health MARIANNA GALARZA Coordinating Producer-Marine Rigger - 06/16/2019 13:21 EDT Narrative Note Narrative [...] to follow for discharge needs. MARIANNA GALARZA Coordinating Producer-Marine Rigger - 06/16/2019 13:21 EDT documented in this encounter Plan of Treatment Not on file documented as of this encounter Visit Diagnoses Not on filedocumented in this encounter Care Teams Air Traffic Instructor Relationship Specialty Start Date End Date Avel Traore MD [address] [place] [address] PCP - General General Internal Medicine 09/21/24 documented as of this encounter
--- OUTSIDE RECORDS SUMMARY | 2025-09-04 07:51 | XMS_ITS | Encounter Summary ---
Author Organization [employer] ([place], [place], [place], [place]) Address [address] [place] [address] Care Team Providers Care Vp Cardiovascular Service Line Name Role Phone Avel Traore MD Primary Care Provider [phone] Encounter Details Date Type Department Care Team (Late st Contact Info) Description 06/16/2019 Transcribed Document [facility] [place] [facility] [place] [address] Phil Singh MD [address] [place] [address] Social History Tobacco Use Types Packs/Day [...] No observed complications. PACEMAKER DATA: Company is [employer], model is [id number], serial number is [id number]. The right atrial lead is [id number], pacing threshold 1 V at 0.5 msec. Lead impedance is 360 ohms. P-wave is 3.5 mV. The RV lead is [id number], pacing threshold 0.5 V at 0.5 msec, [...] on filedocumented in this encounter Care Teams Vp Cardiovascular Service Line Relationship Specialty Start Date End Date Avel Traore MD [address] [place] [address] [place], [place] [id number] PCP - General General Internal Medicine 09/21/24 documented as of this encounter
--- OUTSIDE RECORDS SUMMARY | 2025-09-04 07:51 | XMS_ITS | Encounter Summary ---
Author Organization [employer] ([place], [place], [place], [place]) Address [address] [place] [address] Care Team Providers Care Grey Roll Man Name Role Phone Avel Traore MD Primary Care Provider [phone] Encounter Details Date Type Department Care Team (Late st Contact Info) Description 06/17/[address] [facility] [place] [facility] [place] [address] ProviderPhil MD [facility] [place] [place] [address] Social History Tobacco Use Types [...] Singh MD - 06/17/2019 2:00 AM CDT Crystal Evaluator Details Entered On: 06/17/2019 4:42 EDT Performed [...] Jessie Ordoñez, MARGOTH - 06/17/2019 4:41 EDT Electronically signed by Ailyn Wolfe Conversion Mattress And [employer]springs Supervisor Cerner at 03/17/2023 9:00 PM CDT documented in this encounter Plan of Treatment Not on file documented as of this encounter Visit Diagnoses Not on filedocumented in this encounter Care Teams Grey Roll Man Relationship Specialty Start Date End Date Avel Traore MD [address] [place], [place] [id number] PCP - General General Internal Medicine 09/21/24 documented as of this encounter
--- OUTSIDE RECORDS SUMMARY | 2025-09-04 07:51 | XMS_ITS | Encounter Summary ---
Author Organization [employer] ([place], [place], [place], [place]) Address [address] [place] [address] Care Team Providers Care Geriatric Nursing Assistant Name Role Phone Avel Traore MD Primary Care Provider [phone] Encounter Details Date Type Department Care Team (Late st Contact Info) Description 06/16/2019 Transcribed Document [facility] [place] [facility] [place] [address] ProviderPhil MD [address] [place] [address] Social History Tobacco Use Types Packs/Day [...] 06/17/2019 11:52 EDT Electronically signed by Yaneth [facility] Conversion Personnel Assistant Cerner at 03/17/2023 9:09 PM CDT documented in this encounter Plan of Treatment Not on file documented as of this encounter Visit Diagnoses Not on filedocumented in this encounter Care Teams Geriatric Nursing Assistant Relationship Specialty Start Date End Date Avel Traore MD [address] [place] [address] PCP - General General Internal Medicine 09/21/24 documented as of this encounter
--- OUTSIDE RECORDS SUMMARY | 2025-09-04 07:51 | XMS_ITS | Encounter Summary ---
Author Organization [employer] ([place], [place], [place], [place]) Address [address] [place] [address] Care Team Providers Care Easter Bunny Name Role Phone Avel Traore MD Primary Care Provider [phone] Encounter Details Date Type Department Care Team (Late st Contact Info) Description 06/16/2019 Transcribed Document [facility] [place] [facility] [place] [address] ProviderPhil MD [address] [place] [address] Social History Tobacco Use Types Packs/Day [...] Lymph # 1.53 x10(3)/uL 06/15/2019 13:35 EDT Thayer % 12.4 % (High) 06/16/2019 05:46 EDT Thayer % 11.5 % (High) 06/15/2019 13:35 EDT Thayer # 0.67 K/uL 06/16/2019 05:46 EDT Thayer # 0.71 K/uL 06/15/2019 13:35 EDT Eos [...] EDT Hypochromia 1+ (Abnormal) 06/15/2019 13:35 EDT Osgood Cells 1+ (Abnormal) 06/16/2019 05:46 EDT Target [...] mcg/dL 06/15/2019 16:06 EDT Electronically signed by [facility] Conversion Community Coordinator For [employer] Cerner at 03/17/2023 9:11 PM CDT documented in this encounter Plan of Treatment Not on file documented as of this encounter Visit Diagnoses Not on filedocumented in this encounter Care Teams Easter Bunny Relationship Specialty Start Date End Date Avel Traore MD [address] [place], [place] [id number] PCP - General General Internal Medicine 09/21/24 documented as of this encounter
--- OUTSIDE RECORDS SUMMARY | 2025-09-04 07:51 | XMS_ITS | Encounter Summary ---
Author Organization [employer] ([place], [place], [place], [place]) Address [address] [place] [address] Care Team Providers Care Phlebotomy Support Tech Name Role Phone Avel Traore MD Primary Care Provider [phone] Encounter Details Date Type Department Care Team (Late st Contact Info) Description 06/20/2019 Transcribed Document [facility] [place] [facility] [place] [address] ProviderPhil MD [address] [place] [id number] Social History Tobacco Use Types Packs/Day Years [...] on filedocumented in this encounter Care Teams Phlebotomy Support Tech Relationship Specialty Start Date End Date Avel Traore MD [address] [place] [address] PCP - General General Internal Medicine 09/21/24 documented as of this encounter
--- OUTSIDE RECORDS SUMMARY | 2025-09-04 07:51 | XMS_ITS | Encounter Summary ---
Author Organization [employer] ([place], [place], [place], [place]) Address [address] [place] [address] Care Team Providers Care Grassland Conservationist Name Role Phone Avel Traore MD Primary Care Provider [phone] Encounter Details Date Type Department Care Team (Late st Contact Info) Description 06/17/2019 Transcribed Document [facility] [place] [facility] [place] [address] ProviderPhil MD [address] [place] [id number] Social History Tobacco Use Types Packs/Day Years [...] 06/17/2019 15:09 EDT Electronically signed by Yaneth, [facility] Conversion Magneto Electrician Cerner at 03/17/2023 9:01 PM CDT documented in this encounter Plan of Treatment Not on file documented as of this encounter Visit Diagnoses Not on filedocumented in this encounter Care Teams Grassland Conservationist Relationship Specialty Start Date End Date Avel Traore MD [address] [place] [address] [place] [address] PCP - General General Internal Medicine 09/21/24 documented as of this encounter
--- OUTSIDE RECORDS SUMMARY | 2025-09-04 07:51 | XMS_ITS | Encounter Summary ---
Author Organization [employer] ([place], [place], [place], [place]) Address [address] [place] [address] Care Team Providers Care Inspector Open Die Name Role Phone Avel Traore MD Primary Care Provider [phone] Encounter Details Date Type Department Care Team (Late st Contact Info) Description 06/16/2019 Transcribed Document [facility] [place] [facility] [place] [address] ProviderPhil MD [address] [place] [address] Social History Tobacco Use Types [...] Karen Gimenez RN - 06/16/2019 18:32 EDT documented in this encounter Plan of Treatment Not on file documented as of this encounter Visit Diagnoses Not on filedocumented in this encounter Care Teams Inspector Open Die Relationship Specialty Start Date End Date Avel Traore MD [address] [place] [address] PCP - General General Internal Medicine 09/21/24 documented as of this encounter
--- OUTSIDE RECORDS SUMMARY | 2025-09-04 07:51 | XMS_ITS | Encounter Summary ---
Author Organization [facility] Address [address] [place] [id number] Care Team Providers Care Negative Cutter Name Role Phone Avel Traore MD Primary Care Provider [phone] Reason for Visit * Reason Onset Date Comments replacement PAP device order 05/17/2023 Encounter Details Date Type Department Care Team (Late st Contact Info) Description 05/17/2023 Telephone [facility] [address] [place] [address] Nicole Asher MD [address] [place] [address] replacement PAP device order Social [...] eligible for a new one. Fax is [phone] documented in this encounter Plan of Treatment Not on file documented as of this encounter Visit Diagnoses Not on filedocumented in this encounter Care Teams Negative Cutter Relationship Specialty Start Date End Date Avel Traore MD [address] [place] [address] PCP - General Internal Medicine 11/17/22 documented as of this encounter
--- OUTSIDE RECORDS SUMMARY | 2025-09-04 07:51 | XMS_ITS | Encounter Summary ---
Author Organization [facility] Address [address] [place] [address] Care Team Providers Care Commission For The Blind Director Name Role Phone Avel Traore MD Primary Care Provider [phone] Reason for Visit * Reason Comments Med Refill Encounter Details Date Type Department Care Team (Late st Contact Info) Description 08/16/2025 Refill [facility] [address] [place] [address] [place] [address] Avel Traore MD [address] [place] [address] [place] [address] Seasonal allergic rhinitis due to pollen [...] pollen documented in this encounter Care Teams Commission For The Blind Director Relationship Specialty Start Date End Date Avel Traore MD [address] [place] [address] PCP - General Internal Medicine 11/17/22 documented as of this encounter
--- OUTSIDE RECORDS SUMMARY | 2025-09-04 07:51 | XMS_ITS | Encounter Summary ---
Author Organization [employer] ([place], [place], [place], [place]) Address [address] [place] [address] Care Team Providers Care Housing Manager Name Role Phone Avel Traore MD Primary Care Provider Encounter Details Date Type Department Care Team (Late st Contact Info) Description 06/17/2019 Transcribed Document [facility] [place] Family Medicine [facility] [address] ProviderPhil MD [address] [place] [id number] Social History Tobacco Use Types Packs/Day Years [...] On: 06/17/2019 17:30 EDT by [place]FT[place]I [place], Energy Advisor Final Discharge Planning Discharge Arrangements : Patient Post-Acute Information Patient Name: DALLAS BRODY Gender: Male : [birth year] Age: 69 Years No Post-Acute Placement(s) Listed No Post-Acute Service(s) Listed No Cur[place] Referral(s) Listed Important Medicare Message Reviewed With : Patient, Spouse Important Medicare Message Reviewed D/T : 06/17/2019 13:10 EDT Transportation Needs : Family/Friend Discharge To Care Management : Home/Residential/Correction or Self Care -01 [place] Energy Advisor - 06/17/2019 17:30 EDT Final Narrative Note Final Narrative Note : Pt D/C home today. Talked w/ him, he denies any needs. [place] Energy Advisor - 06/17/2019 17:30 EDT Electronically signed by Yaneth [facility] Conversion Form Tamper Cerner at 03/17/2023 8:52 PM CDT documented in this encounter Plan of Treatment Not on file documented as of this encounter Visit Diagnoses Not on filedocumented in this encounter Care Teams Housing Manager Relationship Specialty Start Date End Date Avel Traore MD [address] [place], [place] [id number] PCP - General General Internal Medicine 09/21/24 documented as of this encounter
--- OUTSIDE RECORDS SUMMARY | 2025-09-04 07:51 | XMS_ITS | Encounter Summary ---
Author Organization [employer] ([place], [place], [place], [place]) Address [address] [place] [address] Care Team Providers Care Cashier General Name Role Phone Avel Traore MD Primary Care Provider [phone] Encounter Details Date Type Department Care Team (Late st Contact Info) Description 06/14/2019 Transcribed Document [facility] [place] [facility] [place] [address] ProviderPhil MD [facility] [place] [address] Social History Tobacco Use Types [...] on filedocumented in this encounter Care Teams Cashier General Relationship Specialty Start Date End Date Avel Traore MD [address] [place] [address] PCP - General General Internal Medicine 09/21/24 documented as of this encounter
--- OUTSIDE RECORDS SUMMARY | 2025-09-04 07:51 | XMS_ITS | Encounter Summary ---
Author Organization [employer] ([place], [place], [place], [place]) Address [address] [place] [address] Care Team Providers Care Services Manager Name Role Phone Avel Traore MD Primary Care Provider [phone] Encounter Details Date Type Department Care Team (Late st Contact Info) Description 06/16/2019 Transcribed Document [facility] [place] [facility] [place] [address] ProviderPhil MD [address] [place] [address] Social History Tobacco Use Types Packs/Day [...] week. Pt has no AE. 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 PATRICIA OGDEN OTR/Jacob - 06/16/2019 15:15 [...] exercises PATRICIA OGDEN OTR/Jacob 06/16/2019 15:15 EDT Travel Consultant Goals, OT Bathing LTG Grid Goal #1 [...] MELVI CARINA GOMEZ/Jacob - 06/16/2019 15:53 EDT [place] OT Charges OT Eval Low Complexity : 1 PATRICIA OGDEN OTR/Jacob - 06/16/2019 15:53 EDT Electronically signed by Yaneth [facility] Conversion Tile Shader Cerner at 03/17/2023 9:11 PM CDT documented in this encounter Plan of Treatment Not on file documented as of this encounter Visit Diagnoses Not on filedocumented in this encounter Care Teams Services Manager Relationship Specialty Start Date End Date Avel Traore MD [address] [place] [address] [place] [address] PCP - General General Internal Medicine 09/21/24 documented as of this encounter
--- OUTSIDE RECORDS SUMMARY | 2025-09-04 07:51 | XMS_ITS | Encounter Summary ---
Author Organization [employer] ([place], [place], [place], [place]) Address [address] [place] [address] Care Team Providers Care Work Over Rig Operator Name Role Phone Avel Traore MD Primary Care Provider [phone] Encounter Details Date Type Department Care Team (Late st Contact Info) Description 06/13/2019 Transcribed Document [facility] [place] [facility] [place] [address] ProviderPhil MD [address] [place] [address] Social History Tobacco Use Types Packs/Day [...] agree with charting completed by Aleta Shepherd, nursing technician community health nurse staff. Alessandro Hernandez RN - 06/13/2019 16:25 EDT documented in this encounter Plan of Treatment Not on file documented as of this encounter Visit Diagnoses Not on filedocumented in this encounter Care Teams Work Over Rig Operator Relationship Specialty Start Date End Date Avel Traore MD [address] [place] [address] PCP - General General Internal Medicine 09/21/24 documented as of this encounter
--- OUTSIDE RECORDS SUMMARY | 2025-09-04 07:51 | XMS_ITS | Referral Summary ---
Author Organization [employer] ([place], [place], [place], [place]) Address [address] [place] [address] Care Team Providers Care Lockstitch Waistline Joiner Name Role Phone Avel Traore MD Primary Care Provider [phone] Allergies Active Allergy Reactions Criticality Noted Date [...] Date Hua rded Speak language other than Slovenian at home Not on file 12/17/2023 Want [...] file Insurance [place] [address] Care Teams Lockstitch Waistline Joiner Relationship Specialty Start Date End Date Avel Traore MD [address] [place] [address] [place] [address] PCP - General General Internal Medicine 09/21/24
--- OUTSIDE RECORDS SUMMARY | 2025-09-04 07:51 | XMS_ITS | Encounter Summary ---
Author Organization [employer] ([place], [place], [place], [place]) Address [address] [place] [address] Care Team Providers Care Drier Tender Name Role Phone Avel Traore MD Primary Care Provider [phone] Encounter Details Date Type Department Care Team (Late st Contact Info) Description 06/17/2019 Transcribed Document [facility] [place] Family Medicine Formerly [facility] [place] [address] ProviderPhil MD [address] [place] [address] Social History Tobacco Use Types Packs/Day Years Used Date Smoking Tobacco: Never Assessed Sex and Gender Information Value Date Recorded Sex Assigned at Not on file Legal Sex Male 1:29 PM CDT Gender Identity Not on file Sexual Orientation Not on file documented as of this encounter Miscellaneous Notes * Cerner Conversion Note - Phil Singh MD - 06/17/2019 1:[address] [facility] [place] [address] [address] :1950 Visit [...] Comments Call for follow up appointment Where: [address] [place] [address] [address] [place] [address]- Follow Up with Patient Resource Center When Within 2 to 3 days Comments For further assistance with your Primary Care Physician please contact the Patient Resource Center at [phone]. Follow Up with KETAN TORRES (REF), -MED When Within 2 to [address] Torres is their Primary Care Provider. Please contact the Patient Resource Center at if you need assistance scheduling a Specialist or Primary Care Provider in the future. Where: [facility] [place] [address]- Medications What How Much When Instructions Next [...] is a dose decrease. Prescription sent to [facility] 06/17 8p chondroitin-glucosamine (Osteo Bi-Flex) 2 Tablet(s) Oral Every Day 06/18 flecainide (flecainide 100 mg oral tablet) 0.5 Tablet(s) Oral Two Times A Day New medication. Prescription sent to [facility] Pickup at [place] [address] 06/17 8p FLUoxetine (FLUoxetine 10 mg oral tablet) 1 Tablet(s) Oral Every Day 06/18 8a levothyroxine (levothyroxine 88 mcg (0.088 mg) oral tablet) 1 Tablet(s) Oral Every Day 06/18 7a Pharmacy Information [facility] [address] [place], [place] [id number] [phone] Take your medications faithfully. Do NOT skip [...] including vitamins, herbs, eye drops, creams, and hcfp-jti-gljrbji medicines. ??? Any problems you or family [...] lists the implant date, device model, and space operations of your pacemaker. ??? Do not drive for 24 hours if you received a sedative. This information is not intended to replace advice given to you by your health care provider. Make sure you discuss any questions you have with your health care provider. Document Released: 08/09/2013 Document Revised: 04/22/2017 Document Reviewed: 08/09/2016 Teach 'n Go Interactive Patient Education ?? 2018 Flo[employer]. flecainide (FLEK a nide) Franciscor What is [...] may report side effects to FDA at 5-737-QNE-8512. What other drugs will affect flecainide? Tell your doctor about all your other medicines, especially: ? digoxin; ?? a diuretic or 'water pill'; ?? a beta-laura (atenolol, metoprolol, propranolol, sotalol, and others); ?? other heart medications such as amiodarone, diltiazem, disopyramide, nifedipine, quinidine, or verapamil; or ?? seizure medication. This list is not complete. Other drugs may affect flecainide, including prescription and fwkz-doy-sdztpds medicines, vitamins, and herbal products. Not all [...] to ensure that the information provided by [employer]. ('Multum') is accurate, up-to-date, and complete, but no guarantee is made to that effect. Drug information contained herein may be time sensitive. [employer] information has been compiled for use by healthcare practitioners and consumers in the [place] and therefore [employer] does not warrant that uses outside of the [place] are appropriate, unless specifically indicated otherwise. [employer]'s drug information does not endorse drugs, diagnose patients or recommend therapy. [employer] The[employer] drug information is an informational resource designed [...] effective or appropriate for any given patient. [employer] does not assume any responsibility for any aspect of healthcare administered with the aid of information [employer] provides. The information contained herein is not intended to cover all possible uses, directions, precautions, warnings, drug interactions, allergic reactions, or adverse effects. If you have questions about the drugs you are taking, check with your doctor, nurse or pharmacist. Copyright 2456-8901 [employer]. Version: 4.01. Revision Date: 12/13/2018.amlodipine (am ARAVIND [...] may report side effects to FDA at 7-779-FBM-3194. What other drugs will affect amlodipine? Tell your doctor about all your current medicines and any you start or stop using, especially: ? nitroglycerin; ?? simvastatin (Zocor, Simcor, Vytorin); or ?? any other heart or blood pressure medications. This list is not complete. Other drugs may interact with amlodipine, including prescription and hlhi-zvu-lbupqqq medicines, vitamins, and herbal products. Not all [...] to ensure that the information provided by [employer]. ('Multum') is accurate, up-to-date, and complete, but no guarantee is made to that effect. Drug information contained herein may be time sensitive. [employer] information has been compiled for use by healthcare practitioners and consumers in the [place] and therefore [employer] does not warrant that uses outside of the [place] are appropriate, unless specifically indicated otherwise. [employer] drug information does not endorse drugs, diagnose patients or recommend therapy. [employer] drug information is an informational resource designed [...] effective or appropriate for any given patient. [employer] does not assume any responsibility for any aspect of healthcare administered with the aid of information [employer] provides. The information contained herein is not intended to cover all possible uses, directions, precautions, warnings, drug interactions, allergic reactions, or adverse effects. If you have questions about the drugs you are taking, check with your doctor, nurse or pharmacist. Copyright 1069-1774 [employer]. Version: 14.. Revision Date: 03/08/2017.atenolol (a TEN [...] may report side effects to FDA at 3-635-VEN-2598. What other drugs will affect atenolol? Tell [...] may interact with atenolol, including prescription and ndys-oot-dakyyjc medicines, vitamins, and herbal products. Not all [...] to ensure that the information provided by [employer]. ('Multum') is accurate, up-to-date, and complete, but no guarantee is made to that effect. Drug information contained herein may be time sensitive. [employer] information has been compiled for use by healthcare practitioners and consumers in the [place] and therefore [employer] does not warrant that uses outside of the [place] are appropriate, unless specifically indicated otherwise. [employer] drug information does not endorse drugs, diagnose patients or recommend therapy. [employer] drug information is an informational resource designed [...] effective or appropriate for any given patient. [employer] does not assume any responsibility for any aspect of healthcare administered with the aid of information [employer] provides. The information contained herein is not intended to cover all possible uses, directions, precautions, warnings, drug interactions, allergic reactions, or adverse effects. If you have questions about the drugs you are taking, check with your doctor, nurse or pharmacist. Copyright 5036-6066 [employer]. Version: 9.01. Revision Date: 08/05/2016. Emergency Awareness [...] Assistance with quitting is available by contacting 2-595-BHUHNOW. This is a free resource providing counseling, [...] 0.0 and 7.0 ) Target Cells: 1+ Providence #: 0.67 K/uL -- Normal range between ( 0.16 and 1.00 ) Eos #: 0.15 x10(3)/uL -- Normal range between ( 0.00 and 0.80 ) Providence %: 12.4 % -- Normal range between [...] and 53.1 ) Platelet Ct Estimate: Decreased Gm Cells: 1+ Lymph #: 1.39 x10(3)/uL -- [...] was given the opportunity to ask questions. Patient/Mechanical Specialist Name: Patient/Mechanical Specialist Signature: Relationship to Patient: Clinician/Hospital Mechanical Specialist Signature: Date: Electronically signed by Ailyn Wolfe Conversion Information Management Specialist Helioner at 03/17/2023 9:05 PM CDT documented in this encounter Plan of Treatment Not on file documented as of this encounter Visit Diagnoses Not on filedocumented in this encounter Care Teams Drier Tender Relationship Specialty Start Date End Date Avel Traore MD [address] [place] [address] PCP - General General Internal Medicine 09/21/24 documented as of this encounter
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
--- OUTSIDE RECORDS SUMMARY | 2025-09-04 07:51 | XMS_ITS | Encounter Summary ---
Author Organization [employer] ([place], [place], [place], [place]) Address [address] [place] [address] Care Team Providers Care Patents Examiner Name Role Phone Avel Traore MD Primary Care Provider [phone] Encounter Details Date Type Department Care Team (Late st Contact Info) Description 06/17/2019 Transcribed Document [facility] [place] [facility] [address] ProviderPhil MD [address] [place] [address] Social History Tobacco Use Types [...] Brittaney Meng Rn - 06/17/2019 13:43 EDT documented in this encounter Plan of Treatment Not on file documented as of this encounter Visit Diagnoses Not on filedocumented in this encounter Care Teams Patents Examiner Relationship Specialty Start Date End Date Avel Traore MD [address] [place] [address] PCP - General General Internal Medicine 09/21/24 documented as of this encounter
--- OUTSIDE RECORDS SUMMARY | 2025-09-04 07:51 | XMS_ITS | Encounter Summary ---
Author Organization [employer] ([place], [place], [place], [place]) Address [address] [place] [address] Care Team Providers Care Mechanical Shovel Operator Name Role Phone Avel Traore MD Primary Care Provider [phone] Encounter Details Date Type Department Care Team (Late st Contact Info) Description 06/16/2019 Transcribed Document [facility] [place] Family Medicine [facility] [place] [address] ProviderPhil MD [address] [place] [address] Social History Tobacco Use Types Packs/Day [...] Gianfranco Marquez M.D. Electronically signed by Yaneth [facility] Conversion Jewel Hole Rough Opener Cerner at 03/17/2023 8:59 PM CDT documented in this encounter Plan of Treatment Not on file documented as of this encounter Visit Diagnoses Not on filedocumented in this encounter Care Teams Mechanical Shovel Operator Relationship Specialty Start Date End Date Avel Traore MD [address] [place] [address] PCP - General General Internal Medicine 09/21/24 documented as of this encounter
--- OUTSIDE RECORDS SUMMARY | 2025-09-04 07:51 | XMS_ITS | Encounter Summary ---
Author Organization [employer] ([place], [place], [place], [place]) Address [address] [place] [address] Care Team Providers Care Drupal Web Developer Name Role Phone Avel Traore MD Primary Care Provider [phone] Encounter Details Date Type Department Care Team (Late st Contact Info) Description 06/17/2019 Transcribed Document [facility] [place] Medicine [facility] [place] [address] Phil Singh MD [address] [place] [address] Social History Tobacco Use Types Packs/Day [...] including vitamins, herbs, eye drops, creams, and owgr-fpg-rdajbtb medicines. ??? Any problems you or family [...] lists the implant date, device model, and ingot supervisor of your pacemaker. ??? Do not drive for 24 hours if you received a sedative. This information is not intended to replace advice given to you by your health care provider. Make sure you discuss any questions you have with your health care provider. Document Released: 08/09/2013 Document Revised: 04/22/2017 Document Reviewed: 08/09/2016 Elsevier Interactive Patient Education ? 2018 [employer] Electronically signed by Ailyn Wolfe Conversion Crimping Machine Operator For Metal Cerner at 03/17/2023 8:54 PM CDT documented in this encounter Plan of Treatment Not on file documented as of this encounter Visit Diagnoses Not on filedocumented in this encounter Care Teams Drupal Web Developer Relationship Specialty Start Date End Date Avel Traore MD [address] [place] [address] [place] [address] PCP - General General Internal Medicine 09/21/24 documented as of this encounter
--- OUTSIDE RECORDS SUMMARY | 2025-09-04 07:51 | XMS_ITS | Clinical Summary ---
Author Organization [employer] ([place], [place], [place], [place]) Address [address] [place] [address] Care Team Providers Care Radiologist Name Role Phone Avel Traore MD Primary Care Provider [phone] Allergies Active Allergy Reactions Criticality Noted Date [...] Date Hua rded Speak language other than Portuguese at home Not on file 12/17/2023 Want [...] Abdominal Aortic Aneurysm (A AA) Screen 2015 Falls Risk Screening 11/29/2024 Respiratory Syncytial Virus (RSV) Adult or (1 - 1-dose 75+ series) 2025 COVID-19 VACCINE (5 - 2024-2 6 season) 2025 10/06/2021, 02/21/2021, 01/21/2021, Additional history exists Influenza Vaccine (#1) 2025 2, 10/14/2021, 09/12/2021, Additional history exists Tobacco Cessation Counseling and Screening (12+) 09/21/2025 09/21/2024 DTAP/TDAP/TD VACCINES (2 - T d or Tdap) 03/15/2027 03/15/2017 Pneumococcal 50+ years Completed 2, 10/14/2021, 09/18/2021 Insurance MEDICARE PART A B AETNA SR SUPP Care Teams Radiologist Relationship Specialty Start Date End Date Avel Traore MD [address] [place] [address] [place] [address] PCP - General General Internal Medicine 09/21/24
--- OUTSIDE RECORDS SUMMARY | 2025-09-04 07:52 | XMS_ITS | Encounter Summary ---
Author Organization [employer] ([place], [place], [place], [place]) Address [address] [place] [address] Care Team Providers Care Wire Brush Operator Name Role Phone Avel Traore MD Primary Care Provider [phone] Encounter Details Date Type Department Care Team (Late st Contact Info) Description 06/16/2019 Transcribed Document [facility] [place] Family Medicine [facility] [place] [address] ProviderPhil MD [address] [place] [address] Social History Tobacco Use Types [...] Jessie Ordoñez RN - 06/16/2019 4:42 EDT Electronically signed by Jerzy Wolfe Conversion Semiconductor Manufacturing Technician Ace at 03/17/2023 8:54 PM CDT documented in this encounter Plan of Treatment Not on file documented as of this encounter Visit Diagnoses Not on filedocumented in this encounter Care Teams Wire Brush Operator Relationship Specialty Start Date End Date Avel Traore MD [address] [place] [address] PCP - General General Internal Medicine 09/21/24 documented as of this encounter
--- OUTSIDE RECORDS SUMMARY | 2025-09-04 07:52 | XMS_ITS | Encounter Summary ---
Author Organization [employer] ([place], [place], [place], [place]) Address [address] [place] [address] Care Team Providers Care Single Stroke Preformer Name Role Phone Avel Traore MD Primary Care Provider [phone] Encounter Details Date Type Department Care Team (Late st Contact Info) Description 06/16/2019 Transcribed Document [facility] [place] [facility] [place] [address] ProviderPhil MD [address] [place] [address] Social History Tobacco Use Types Packs/Day Years Used Date Smoking Tobacco: Never Assessed Sex and Gender Information Value Date Recorded Sex Assigned at Not on file Legal Sex Male 1:29 PM CDT Gender Identity Not on file Sexual Orientation Not on file documented as of this encounter Miscellaneous Notes * Cerner Conversion Note - Phil ProviderMD - 06/16/2019 2:00 AM CDT Environmental Lead Details Entered On: 06/16/2019 4:42 EDT Performed [...] - 06/16/2019 4:42 EDT Electronically signed by Ailyn Wolfe Conversion Industrial Psychology Professor Cerner at 03/17/2023 8:50 PM CDT documented in this encounter Plan of Treatment Not on file documented as of this encounter Visit Diagnoses Not on filedocumented in this encounter Care Teams Single Stroke Preformer Relationship Specialty Start Date End Date Avel Traore MD [address] [place] [address] PCP - General General Internal Medicine 09/21/24 documented as of this encounter
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
--- NOTE | 2025-09-04 08:00 | CA_ITS ---
APPROVED REPORT EXAM: Comprehensive 2D, Doppler, and color-flow Echocardiogram Coal Weigher: Lenka Banuelos RCS, RVS Ht: 5 ft 6 in Wt: 157lbs BSA: 1.80 BP: 140/60 mmHg Indications: chronic CM, PAF, AICD, PHTN Echo Enhancing Agent Indication: NO IV ACCESSS 2D Dimensions Left Atrium 5.20 cm LA Volume 139.70 mL LA Volume Index 77.136191 mL/m2 (M/F) 16-34 M-Mode Dimensions RVDd 3.18 cm (0.9-2.6) LA Diam 5.44 cm (1.9-4.0) LVDd 7.26 cm (3.5-5.7) LVDs 5.56 cm (3.5-5.7) IVSd 1.39 cm (0.6-1.1) PWd 1.30 cm (0.6-1.1) EF (Teich) 45.50% EPSs 1.88 cm FS 23.40% EDV (Teich) 277.30 mL TAPSE 1.79 (<1.7) ESV (Teich) 151.20 mL LV Diastology E Decel Time 210 (160-240 msec) E/A Ratio 1.44 MED A' 3.40 cm/s LAT A' 5.70 cm/s Aortic Valve SARA Index 0.88 cm2/m2 AoV Peak Jovanni. 161.0 (50-130 cm/s) AO Peak GR. 10.30 mmHg AO Mean GR. 5.30 (<5 mmHg) AO VTI 34.4 (18-25 cm) SARA (VTI) 1.62 (2.5-4.5 cm2) Mitral Valve MV A Velocity 55.0 (40-130 cm/s) E/A Ratio 1.44 MV Mean Gr. 2.10 (<2mmHg) Pulmonary Valve PV Peak Velocity 102.0 (50-150 cm/s) IN End VMAX 165.0 cm/s Tricuspid Valve TR P. Velocity 344.00 cm/s RAP Estimate 10.00 mmHg RVSP 57.30 mmHg Left Ventricle The left ventricle is severely dilated. Left ventricular systolic function is severely reduced. There is normal left ventricular wall thickness. 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 The left ventricular diastolic function is indeterminate. LVEF is 20-25% Right Ventricle The right ventricle is moderately dilated. The right ventricular systolic function is moderately reduced. There is a device lead in the right ventricle. Atria The left atrium is severely dilated. The right atrium is severely dilated. There is no color Doppler evidence of interatrial shunt. Aortic Valve The aortic valve is mildly thickened. There is no hemodynamically significant aortic valvular stenosis. Trace aortic regurgitation is present. Mitral Valve The mitral valve is mildly thickened. The posterior MV leaflet appears tethered. No evidence of mitral valve stenosis. Mild mitral regurgitation is present. Tricuspid Valve The tricuspid valve leaflets are thin and pliable. Mild tricuspid regurgitation. RVSP is 35-40 mmHg. Pulmonic Valve The pulmonary valve is grossly normal in structure. Mild pulmonic valve regurgitation is present. Great Vessels The aortic root is normal in size. IVC is normal in size and collapses >50% with inspiration. Pericardium There is no pericardial effusion. Other Information Study Quality: Fair Conclusion Severe LV dilation with severe reduction in LV systolic function (LVEF 20-25%). Moderate RV dilation with moderate reduction in RV function. Biatrial dilation. Mild MR, mild TR, mild PI. RVSP 35-40 mmHg. Compared to prior study from 01/23/2025, there is slight numerical improvement to the biventricular function and filling pressures, but overall there remains severe reduction in LV systolic function. Electronically signed by : Oneida Kaur MD 09/09/2025 16:21:36
== END 2025-09-04 23:59 | disposition home or self-care (01) ==
LOC: RT 07:45
PROVIDERS: PCP Pediatrics; Visit Provider Internal Medicine
DX: I08.8 Other rheumatic multiple valve diseases (principal); I50.20 Unspecified systolic (congestive) heart failure; I42.8 Other cardiomyopathies; I48.0 Paroxysmal atrial fibrillation; I27.20 Pulmonary hypertension, unspecified; R94.31 Abnormal electrocardiogram [ECG] [EKG]; Z95.810 Presence of automatic (implantable) cardiac defibrillator
CPT/HCPCS: 93306